=== PATIENT | male | born 1945 | race Caucasian/White ===

== ENCOUNTER 2024-07-15 11:33 | Inpatient (IN) | payer OTHER ==
[2024-07-12 12:05] LABS: BASOPHILS # (AUTO) 0.1 X10'3 (0-0.2); BASOPHILS % (AUTO) 0.9 % (0-1); EOSINOPHILS # (AUTO) 0.3 X10'3 (0-0.9); HEMATOCRIT 42.6 % (42.0-52.0); HEMOGLOBIN 14.5 g/dl (14.0-17.9); LYMPHOCYTES # (AUTO) 2.4 X10'3 (1.1-4.8); LYMPHOCYTES % (AUTO) 36.2 % (21-51); MEAN CORPUSCULAR HGB CONC 34.1 g/dL (33.0-36.5); MEAN CORPUSCULAR VOLUME 99.5 FL (78-98); MEAN PLATELET VOLUME 9.7 FL (7.4-10.4); MONOCYTES # (AUTO) 0.8 X10'3 (0-0.9); NEUTROPHILS # (AUTO) 3.1 X10'3 (1.8-7.7); NEUTROPHILS % (AUTO) 46.9 % (42-75); PLATELET COUNT 158 X10'3 (140-440); RED BLOOD COUNT 4.28 X10'6 (4.70-6.10); RED CELL DISTRIBUTION WIDTH 13.7 % (11.5-14.5); WHITE BLOOD COUNT 6.6 X10'3 (4.5-11.0)
[2024-07-12 12:18] LABS: APTT 29 SECONDS (22-32); PROTHROMBIN TIME 10.7 SECONDS (9.0-12.0)
[2024-07-12 12:22] LABS: ALBUMIN 3.8 G/DL (3.4-5.0); ANION GAP 5 (8-16); BLOOD UREA NITROGEN 20 MG/DL (7-18); BUN/CREATININE RATIO 14.7 (10.0-20.0); CALCIUM 8.9 MG/DL (8.5-10.1); CHLORIDE 107 MMOL/L (99-107); CHOL/HDL RATIO 2.7 (0.00-4.99); CHOLESTEROL 121 MG/DL (0-200); CREATININE 1.36 MG/DL (0.60-1.10); GLUCOSE 111 MG/DL (70-104); HDL CHOLESTEROL 45 MG/DL (35-60); LDL CHOLESTEROL 61 MG/DL (50-100); POTASSIUM 3.9 MMOL/L (3.5-5.1); SODIUM 142 MMOL/L (135-145); TOTAL CARBON DIOXIDE 29.7 MMOL/L (24-32); TRIGLYCERIDES 176 MG/DL (20-135); eGFR 51 ML/MIN
[~2024-07-15] VITALS: Ht 348 cm; Wt 92.7 kg
[2024-07-15] VITALS (7 sets, daily range): BP systolic 103–185; BP diastolic 40–82; PULSE 78–90; RESP 12–16; TEMP 97.4; O2SAT 97–100
[~2024-07-15 11:33] MED LIST: potassium Cl 2 mEq/ml inj IV ONE
--- NOTE | 2024-07-15 11:48 | ELECTROCARDIOGRAPH REPORT ---
[facility] Test Date: 2024-07-15 Test Time: 11:45:24 Pat Name: MICHELLE HASSAN Department: [facility] Patient ID: [facility]-[id number] Room: Gender: M Radio Station Engineer: LAZARO : 1945 Requested By: JOCE CHRISTOPHER Order Number: [id number] Reading MD: Dr. DEVEN Weiss Measurements Intervals [place] Rate: 71 P: 0 OR: 0 QRS: 68 QRSD: 106 T: 67 QT: 380 QTc: 413 Interpretive Statements Atrial fibrillation Low voltage, extremity leads Probable anteroseptal infarct, old Electronically Signed On 07-15-2024 13:29:[address] DEVEN Weiss Please click the below link to view image of tracing.
[2024-07-15] MEDS ORDERED: ALBU8HFA INH (12:07)
[2024-07-15] MEDS ORDERED: ATOR80TA PO (12:08)
[2024-07-15] MEDS ORDERED: CARV3.12 PO ×2 (12:09)
[2024-07-15] MEDS ORDERED: CHOL20004 PO (12:10)
[2024-07-15] MEDS ORDERED: NEO/5DRO3 EACHEYE (12:10)
[2024-07-15] MEDS ORDERED: CLOB30CR11 TOP (12:11)
[2024-07-15] MEDS ORDERED: FURO-150 PO (12:12)
[2024-07-15] MEDS ORDERED: LEVO112T52 PO (12:12)
[2024-07-15] MEDS ORDERED: LOSA-418 PO (12:13)
[2024-07-15] MEDS ORDERED: NITR0.4T51 SL (12:15)
[2024-07-15] MEDS ORDERED: RIVA20TA PO (12:15)
[2024-07-15] MEDS ORDERED: SILD100T PO (12:16)
[2024-07-15] MEDS ORDERED: TIOT18CA3 INH (12:17)
[2024-07-15] MEDS ORDERED: SPIR25TA5 PO (12:17)
[2024-07-15] MEDS: normal saline 1,000 ML IV SCH (13:12)
[2024-07-15] MEDS: diphenhydrAMINE 25mg capsule PO PRN (13:12)
[2024-07-15] MEDS: LORazepam 0.5 MG tablet PO PRN (13:12)
[2024-07-15] MEDS ORDERED: nitroGLYCERIN 500mcg/5mL D5W 5 ML IV ONE ×2 (13:48→14:44)
[2024-07-15] MEDS ORDERED: verapamil 2.5 mg/ml inj IV ONE (13:48)
[2024-07-15] MEDS ORDERED: midazolam 1 mg/ML 2ml injection ONE (13:48)
[2024-07-15] MEDS ORDERED: iohexol 350MG/ML 100ml bottle IV ONE ×2 (13:48→14:38)
[2024-07-15] MEDS ORDERED: heparin 1,000unit/ml 10ml vial 10 ML ONE (13:48)
[2024-07-15] MEDS ORDERED: LIDOcaine 1% (10mg/ml) 2ml vial ONE (13:48)
[2024-07-15] MEDS ORDERED: fentaNYL/PF 50MCG/1 ML 2ML syringe ONE (13:48)
[2024-07-15] MEDS ORDERED: LIDOcaine 1% 30ml preserv. free vial ONE (14:52)
[2024-07-15] MEDS ORDERED: gelatin sponge, absorbable (Gelfoam 100) sponge TP ONE (15:03)
[2024-07-15] MEDS ORDERED: ROPIVAcaine 0.5% (5mg/ml) 30ml vial ONE (15:03)
[2024-07-15] MEDS ORDERED: ceFAZolin 1000mg inj ONE (15:03)
[2024-07-15] MEDS ORDERED: vancomycin 1,000mg inj ONE (15:03)
[2024-07-15] MEDS ORDERED: insulin glargine (Lantus) pen - multi-dose SQ PRN ×2 (15:10→22:15)
[2024-07-15] MEDS ORDERED: dextrose 50%-water 50ml dispensing syringe IV PRN ×2 (15:10→22:15)
--- NOTE | 2024-07-15 15:14 | PROGRESS NOTE ---
Clinical Note Clinical Note Progress Note: Emergently called to laborer beam house for consultation: This 79yo developed left anterior descending coronary dissection during coronary stenting procedure with occlusion in prox-mid LAD. 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 Pt sedated, currently on cath table. Advised Dr. Rocha to keep the wire in place, and we have mobilized team for emergency CABG. Currently on no catecholamine support with normal ST segments. Will contact family. NELI NEGRETE Jr., MD July 15, 2024 15:14
[2024-07-15] MEDS ORDERED: rocuronium 10mg/ml inj IV ONE ×2 (15:33→15:34)
[2024-07-15] MEDS ORDERED: MIDAZolam 1 MG/ML 5ML VIAL ONE (15:33)
[2024-07-15] MEDS ORDERED: SUfentanil 50mcg/ml 1ml amp IV ONE (15:33)
[2024-07-15] MEDS ORDERED: propofol inj 20 ML IV ONE (15:34)
[2024-07-15] MEDS ORDERED: sevoflurane 250ml liquid IH ONE (15:37)
--- NOTE | 2024-07-15 15:39 | CARDIAC CATH REPORT ---
Cardiac Cath Report Providers to CC CC: Daniel Nunez MD; WINTER CHRISTOPHER MD Procedure Comments: 1. Left Heart Catheterization 2. Selective Coronary Angiography 3. Percutaneous Coronary Intervention of the Left Anterior Descending 4. Right Radial Artery Access 5. Right Femoral artery access 6. Right femoral artery angiography 7. Placement of an Intra-Aortic Balloon Pump Brief History/Indications: 79yo man with HTN, HLD, PAD, HFmrEF, Afib with reduced ejection fraction and episodes of chest pains referred for coronary angiography. Techniques: After informed consent was obtained, the patient was brought to the cardiac catheterization laboratory and prepped and draped in usual sterile fashion for left heart catheterization and other procedures mentioned above. The right wrist was anesthetized with 1% Lidocaine and the right radial artery accessed via the Seldinger technique after which a 6Fr sheath was placed. Through this a TIG was used to engage the left ventricle, the left coronary artery, and the right coronary artery. See below for interventional procedure details. Findings Findings: HEMODYNAMICS: LV: 128/7 mmHg LVEDP: 12 mmHg Ao: 121/67, MAP 88 mmHg CORONARY ARTERIES: Rt Dominant LMCA: Luminal Irregularities LAD: 95% mid calcified stenosis followed by 30-40% stenosis D1: Luminal Irregularities LCx: Luminal Irregularities OM1: Small, 80% ostial stenosis. OM2: Luminal Irregularities RCA: 80% proximal to mid stenosis with aneurysmal segment. Distal RCA with 30- 40% stenosis PDA: 30% stenosis PL: Osital 40% stenosis PERCUTANEOUS CORONARY INTERVENTION of the LAD: An XB LAD 4.0 guide was used to engage the left coronary artery. The LAD lesion was crossed with a BMW wire. Pre-dilatation was performed with a 2.0x12mm balloon. Repeat angiography revealed no-flow distal to the lesion. Appeared to be concerns of a distal dissection. Given such, attempted to salvage with placing a distal stent, however, still with no-flow. Given such, discussed with CT Surgery to evaluate for salvage CABG given LAD and PDA/PL targets. Right femoral artery access was obtained after which an 8Fr sheath was placed. Through this, the IABP was advanced and placement confirmed. Results Results: 1. Multivessel obstructive CAD involving the mid-LAD, ostial OM1(small caliber vessel), and prox-mid RCA 2. Attempted PCI of the mid-LAD, however, complicated by edge dissection with no-reflow 3. Placement in intra-aortic balloon pump 4. RRA access, guide/wire left in place at the request of CT Surgery 5. RFA Access, IABP sutured in place RECOMMENDATIONS: 1. Emergent CABG given no-flow to mid-LAD and severe RCA disease 2. Pt without significant EKG changes or chest pains, remained hypertensive JOCE CHRISTOPHER MD July 15, 2024 15:39
[2024-07-15 16:16] LABS: ABG BASE EXCESS -6.2 mmol/L (-2.0-3.0); ABG HCO3 18.9 mmol/L (21.0-28.0); ABG OXYGEN SATURATION 98.1 % (94.0-98.0); ABG PCO2 36.5 mmHg (35.0-48.0); ABG PH 7.333 (7.350-7.450); CL (ABG) 107 mmol/L (98-107); FCOHb 0.3 % (0.5-1.5); FHHb 1.9 % (0.0-5.0); FMetHb 0.4 % (0.0-1.5); FO2Hb 97.4 % (94.0-98.0); GLUCOSE (ABG) 110 mg/dl (65-95); K (ABG) 3.7 mmol/L (3.40-4.50); TOTAL HEMOGLOBIN 13.6 G/dl (13.5-17.5)
[2024-07-15] MEDS: ROPIVAcaine 0.5% (5mg/ml) 30ml vial IJ ONE (16:42)
[2024-07-15] MEDS: Insulin Reg/NS 100units/100mL 100 ML IV SCH ×2 (18:07→22:15)
[2024-07-15] MEDS: VANCOMYCIN/H2O 1.5g/300mL PB 300 ML IV ONE (18:08)
[2024-07-15] MEDS: MESSAGE TO PHARMACY IJ ONE (18:08)
[2024-07-15] MEDS: ceFAZolin 2gm in dextrose, iso 50 ML IV ONE (18:08)
[2024-07-15 18:32] LABS: ABG BASE EXCESS -4.3 mmol/L (-2.0-3.0); ABG HCO3 19.5 mmol/L (21.0-28.0); ABG OXYGEN SATURATION 99.2 % (94.0-98.0); ABG PCO2 31.1 mmHg (35.0-48.0); ABG PH 7.415 (7.350-7.450); CL (ABG) 105 mmol/L (98-107); FCOHb 0.2 % (0.5-1.5); FHHb 0.8 % (0.0-5.0); FMetHb 0.3 % (0.0-1.5); FO2Hb 98.7 % (94.0-98.0); GLUCOSE (ABG) 82 mg/dl (65-95); IONIZED CA (ABG) 0.98 mmol/L (1.15-1.33); TOTAL HEMOGLOBIN 9.6 G/dl (13.5-17.5)
[2024-07-15 19:04] LABS: ABG BASE EXCESS -4.5 mmol/L (-2.0-3.0); ABG HCO3 18.9 mmol/L (21.0-28.0); ABG OXYGEN SATURATION 99.3 % (94.0-98.0); ABG PH 7.433 (7.350-7.450); CL (ABG) 106 mmol/L (98-107); FCOHb 0.3 % (0.5-1.5); FHHb 0.7 % (0.0-5.0); FMetHb 0.3 % (0.0-1.5); FO2Hb 98.7 % (94.0-98.0); GLUCOSE (ABG) 90 mg/dl (65-95); TOTAL HEMOGLOBIN 9.6 G/dl (13.5-17.5)
[2024-07-15] MEDS: mupirocin 2% nasal ointment 1gm UD NS SCH (19:34)
[2024-07-15 19:35] LABS: ABG BASE EXCESS -2.5 mmol/L (-2.0-3.0); ABG HCO3 21.2 mmol/L (21.0-28.0); ABG OXYGEN SATURATION 99.3 % (94.0-98.0); ABG PCO2 32.4 mmHg (35.0-48.0); ABG PH 7.434 (7.350-7.450); CL (ABG) 105 mmol/L (98-107); FCOHb 0.3 % (0.5-1.5); FHHb 0.7 % (0.0-5.0); FMetHb 0.3 % (0.0-1.5); FO2Hb 98.7 % (94.0-98.0); GLUCOSE (ABG) 95 mg/dl (65-95); TOTAL HEMOGLOBIN 9.2 G/dl (13.5-17.5)
[2024-07-15 20:02] LABS: ABG BASE EXCESS -4.2 mmol/L (-2.0-3.0); ABG HCO3 20.2 mmol/L (21.0-28.0); ABG OXYGEN SATURATION 99.2 % (94.0-98.0); ABG PCO2 34.4 mmHg (35.0-48.0); ABG PH 7.387 (7.350-7.450); CL (ABG) 106 mmol/L (98-107); FCOHb 0.3 % (0.5-1.5); FHHb 0.8 % (0.0-5.0); FMetHb 0.1 % (0.0-1.5); FO2Hb 98.8 % (94.0-98.0); GLUCOSE (ABG) 104 mg/dl (65-95); K (ABG) 5.5 mmol/L (3.40-4.50); TOTAL HEMOGLOBIN 9.3 G/dl (13.5-17.5)
[2024-07-15] MEDS ORDERED: furosemide 40mg/4ml inj ONE (20:36)
[2024-07-15 20:55] LABS: ABG HCO3 VENOUS 22.2 mmol/L (22.0-29.0); ABG OXYGEN SATURATION VENOUS 73.9 % (60.0-85.0); ABG PCO2 VENOUS 40.4 mmHg (38.0-54.0); ABG PH (VENOUS) 7.358 (7.320-7.430); ABG PO2 VENOUS 41.2 mmHg (23.0-48.0); CL (ABG) 107 mmol/L (98-107); FCOHb VENOUS 0.3 % (0.5-1.5); FHHb VENOUS 25.9 %; FMetHb VENOUS 0.3 % (0.5-1.5); FO2Hb VENOUS 73.5 % (0-80.0); GLUCOSE (ABG) 100 mg/dl (65-95); IONIZED CA (ABG) 1.12 mmol/L (1.15-1.33); K (ABG) 4.4 mmol/L (3.40-4.50); TOTAL HEMOGLOBIN 8.9 G/dl (13.5-17.5)
[2024-07-15 20:58] LABS: ACTIVATED CLOTTING TIME 139 SEC (101-148)
[2024-07-15] MEDS ORDERED: protamine sulfate 10mg/ml inj. ONE ×2 (21:14→21:30)
[2024-07-15] MEDS ORDERED: albumin (Human) 5% 250ml 250 ML IV ONE (21:20)
[2024-07-15 21:28] LABS: ABG BASE EXCESS VENOUS -5.1 mmol/L (-2.0-3.0); ABG HCO3 VENOUS 20.3 mmol/L (22.0-29.0); ABG OXYGEN SATURATION VENOUS 79.2 % (60.0-85.0); ABG PCO2 VENOUS 38.9 mmHg (38.0-54.0); ABG PH (VENOUS) 7.335 (7.320-7.430); ABG PO2 VENOUS 46.5 mmHg (23.0-48.0); CL (ABG) 107 mmol/L (98-107); FHHb VENOUS 20.8 %; FMetHb VENOUS 0.1 % (0.5-1.5); FO2Hb VENOUS 79.1 % (0-80.0); GLUCOSE (ABG) 93 mg/dl (65-95); IONIZED CA (ABG) 1.12 mmol/L (1.15-1.33); TOTAL HEMOGLOBIN 11.6 G/dl (13.5-17.5)
[2024-07-15] MEDS ORDERED: potassium CL 10mEq/100ml bag 100 ML IV PRN (22:15)
[2024-07-15] MEDS ORDERED: metoclopramide 5 mg/ml inj IV PRN (22:15)
[2024-07-15] MEDS ORDERED: HYDROcodone/acetaminophen 10/325mg tab PO PRN (22:15)
[2024-07-15] MEDS ORDERED: nitroGLYCERIN-Tridil 50MG/D5W 250 ML IV PRN (22:15)
[2024-07-15] MEDS: sodium chloride 0.45% 1,000 ML IV SCH (22:15)
[2024-07-15] MEDS ORDERED: acetaminophen 325mg tablet PO PRN (22:15)
[2024-07-15] MEDS ORDERED: potassium Cl 40MEQ/1/2NS 520ml 520 ML IV PRN (22:15)
[2024-07-15] MEDS ORDERED: potassium Cl 40MEQ/270ML bag 250 ML IV PRN (22:15)
[2024-07-15] MEDS ORDERED: mineral oil 133ml enema RC PRN (22:15)
[2024-07-15] MEDS ORDERED: sodium phosphate inj. 15 MMOL in dextrose 5%-water 250 ML IV PRN (22:15)
[2024-07-15] MEDS ORDERED: niCARDipine-NS 40mg/200ml IVPB 200 ML IV PRN (22:15)
[2024-07-15] MEDS ORDERED: DOBUTamine-DoBUTrex 500mg/D5W 250 ML IV PRN (22:15)
[2024-07-15] MEDS ORDERED: Neutra Phos packet PO PRN (22:15)
[2024-07-15] MEDS ORDERED: potassium Cl 20 mEq SR tablet PO PRN (22:15)
[2024-07-15] MEDS ORDERED: magnesium sulf-water 2g/50mL 50 ML IV PRN (22:15)
[2024-07-15] MEDS ORDERED: sodium phosphate inj. 30 MMOL in dextrose 5%-water 250 ML IV PRN (22:15)
[2024-07-15] MEDS ORDERED: normal saline 250ml IV soln 250 ML IV PRN (22:15)
[2024-07-15] MEDS ORDERED: ondansetron/PF 4mg/2ml inj IV PRN (22:15)
[2024-07-15] MEDS ORDERED: bisacodyl 10mg suppository rectal RC PRN (22:15)
[2024-07-15] MEDS ORDERED: magnesium sulf-water 4G/100mL 100 ML IV PRN (22:15)
[2024-07-15] MEDS: atorvastatin 10mg tablet PO SCH (22:25)
[2024-07-15 23:00] LABS: ABG BASE EXCESS -4.6 mmol/L (-2.0-3.0); ABG HCO3 20.5 mmol/L (21.0-28.0); ABG OXYGEN SATURATION 99.2 % (94.0-98.0); ABG PCO2 (T) 35.3 mmHg (35.0-48.0); ABG PH (T) 7.375 (7.350-7.450); ABG PO2 (T) 178.6 mmHg (83.0-108.0); FCOHb 0.2 % (0.5-1.5); FHHb 0.8 % (0.0-5.0); FMetHb 0.3 % (0.0-1.5); FO2Hb 98.7 % (94.0-98.0); MODE SIMV; PATIENT TEMPERATURE 35.5; PEEP 5 cm H2O; RESPIRATORY RATE 12 b/min; TIDAL VOLUME 500 mL; TOTAL HEMOGLOBIN 11.8 G/dl (13.5-17.5)
--- NOTE | 2024-07-15 23:00 | ELECTROCARDIOGRAPH REPORT ---
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 Jax Rocha Measurements Intervals [place] Rate: 91 P: 0 IA: 184 QRS: 214 QRSD: 88 T: 201 QT: 421 QTc: 519 Interpretive Statements Atrial-paced complexes No further analysis attempted due to paced rhythm Artifact in lead(s) I,II,aVR,aVL,aVF and baseline wander in lead(s) I,II,aVR Electronically Signed On 07-16-2024 9:07:[address] Jax Rocha Please click the below link to view image of tracing.
[2024-07-15 23:03] LABS: BASOPHILS % (AUTO) 0.3 % (0-1); EOSINOPHILS # (AUTO) 0.1 X10'3 (0-0.9); EOSINOPHILS % (AUTO) 0.7 % (0-6); HEMATOCRIT 31.4 % (42.0-52.0); HEMOGLOBIN 10.8 g/dl (14.0-17.9); LYMPHOCYTES # (AUTO) 2.5 X10'3 (1.1-4.8); LYMPHOCYTES % (AUTO) 16.3 % (21-51); MEAN CORPUSCULAR HEMOGLOBIN 34.3 PG (27.0-31.0); MEAN CORPUSCULAR HGB CONC 34.5 g/dL (33.0-36.5); MEAN CORPUSCULAR VOLUME 99.3 FL (78-98); MEAN PLATELET VOLUME 9.9 FL (7.4-10.4); MONOCYTES # (AUTO) 1.2 X10'3 (0-0.9); MONOCYTES % (AUTO) 7.8 % (2-12); NEUTROPHILS # (AUTO) 11.5 X10'3 (1.8-7.7); NEUTROPHILS % (AUTO) 74.9 % (42-75); RED BLOOD COUNT 3.16 X10'6 (4.70-6.10); RED CELL DISTRIBUTION WIDTH 13.6 % (11.5-14.5); WHITE BLOOD COUNT 15.3 X10'3 (4.5-11.0)
--- NOTE | 2024-07-15 23:06 | RADIOLOGY REPORT ---
Clinical History NEEDLE COUNT Comparison None Technique: frontal chest x-ray Without Contrast MICHELLE HASSAN, [id number] Findings: Heart - normal lungs - mild left basilar disease. Left-sided chest tube. Pleural thickening in the left apex. No pneumothorax. bones - no acute fracture. status post sternotomy Other- endotracheal tube 4.4 cm above the graciela. Right jugular [place]-Danette catheter tip in the right ventricular outflow tract. Additional right jugular catheter tip extends to the SVC. Mediastinal dr erickson is present. intra-aortic balloon pump tip in the interspace of the third and fourth ribs anterio rly. Impression: 1. Lines and tubes as above. No evidence of a retained surgical instrument or sponge marker. 2. Mild left basilar disease. Left-sided chest tube. No pneumothorax This report was electronically signed by Dirk Murry MD on 07/15/2024 11:02:44 PM.
[2024-07-15 23:19] LABS: TOTAL CELLS COUNTED 100
[2024-07-15 23:20] LABS: PLATELET ESTIMATE DECREASED
[2024-07-15 23:21] LABS: PLATELET COUNT 56 X10'3 (140-440)
[2024-07-15 23:25] LABS: ALANINE AMINOTRANSFERASE 12 U/L (12-78); ALBUMIN 2.6 G/DL (3.4-5.0); ALBUMIN/GLOBULIN RATIO 1.5 (1.1-1.5); ALKALINE PHOSPHATASE 45 IU/L (46-116); ANION GAP 12 (8-16); BILIRUBIN,TOTAL 1.4 MG/DL (0.1-1.0); BLOOD UREA NITROGEN 18 MG/DL (7-18); BUN/CREATININE RATIO 14.6 (10.0-20.0); CALCIUM 7.8 MG/DL (8.5-10.1); CHLORIDE 112 MMOL/L (99-107); CREATININE 1.23 MG/DL (0.60-1.10); GLUCOSE 116 MG/DL (70-104); MAGNESIUM 3.1 MG/DL (1.5-2.4); SODIUM 146 MMOL/L (135-145); TOTAL CARBON DIOXIDE 22.4 MMOL/L (24-32); TOTAL PROTEIN 4.3 G/DL (6.4-8.2); eCRCL 52 ML/MIN; eGFR 57 ML/MIN
[2024-07-15] MEDS: sodium bicarbonate (8.4%) 1 mEq/ml syringe ONE (23:26)
[2024-07-15 23:27] LABS: ASPARTATE AMINO TRANSFERASE 37 U/L (10-37); PHOSPHORUS 2.6 MG/DL (2.3-4.5); POTASSIUM 4.1 MMOL/L (3.5-5.1)
[2024-07-15] MEDS: sodium bicarbonate (8.4%) 1 mEq/ml syringe IV ONE (23:27)
--- NOTE | 2024-07-15 23:28 | OPERATIVE REPORT ---
Operative Report Providers to CC CC: NELI LAKE Jr., MD ~ Date of Procedure: July 15, 2024 Pre-Operative Diagnosis: LAD dissection with severe decrease SBP, calcified RCA dz, s/p IABP Post-Operative Diagnosis SAME as PRE-Op Procedure Performed Emergency CABG x 2 with BRAGG to (dissected) mid LAD (1.5 mm internal lumen diameter) because of dissection) and SV to proximal PDA (1.5 mm) Left atrial appendage exclusion with 45 mm AtriCure AtriClip Flex V Endovein left thigh sv harvest Surgeon: Neli Lake MD Senior Nuclear Medicine Technologist Ghassan DELGADO (assisted with every aspect of case, including conduit preparation, cannulation, exposure, and assisting during all anastomoses, wound closure). Anesthesiologist: Fabian Islas Type of Anesthesia: General Findings: Dissection extending distally, involving left anterior descending at anastomosis, which involved local repair with reapproximation of artery layers RCA severely calcified. Had to track PDA beneath epicardial fat to locate useable site Severe LA and RA enlargement, 3.8 cm ascending aortic aneurysm EF at beginning of case on IABP = 50% with severe anterior wall and septal hypokinesis EF post bypass 60% with resolution of hypokinesis and decrease in mitral regurgitation to trace Left atrial appendage excluded Complications None Prosthetics\Implants used: 45 mm AtriCure AtriClip Flex V device Estimated Blood Loss: 400 ml Specimen Removed: None Description of Procedure: See above Counts repoted as correct: No X-Ray findings: No Foreign body NELI LAKE Jr., MD July 15, 2024 23:28
[2024-07-15 23:30] LABS: APTT 41 SECONDS (22-32); FIBRINOGEN 159 MG/DL (177-424); INR 1.5 INR; PROTHROMBIN TIME 14.8 SECONDS (9.0-12.0)
[2024-07-15] MEDS: potassium Cl 20mEq/100mL bag 100 ML IV PRN (23:36)
[2024-07-15] MEDS: albumin (Human) 5% 250ml 250 ML IV PRN (23:46)
[2024-07-15] MEDS: cefazolin 2gm/D5W 100mL 100 ML IV SCH (23:56)
[2024-07-15] MEDS: protamine sulf. 10mg/ml inj. IV ONE (23:56)
[2024-07-16] VITALS (40 sets, daily range): BP systolic 92–209; BP diastolic 35–87; PULSE 90–110; RESP 8–27; O2SAT 92–98
[2024-07-16] MEDS: neomycin/polymyxn B/dexameth ophth suspension 5ml EACHEYE SCH (02:13)
[2024-07-16 03:23] LABS: HEMATOCRIT 35.1 % (42.0-52.0); LYMPHOCYTES # (AUTO) 1.8 X10'3 (1.1-4.8); RED BLOOD COUNT 3.51 X10'6 (4.70-6.10)
[2024-07-16 03:25] LABS: BASOPHILS # (AUTO) 0.1 X10'3 (0-0.2); BASOPHILS % (AUTO) 0.3 % (0-1); EOSINOPHILS % (AUTO) 0.1 % (0-6); LYMPHOCYTES % (AUTO) 8.2 % (21-51); MEAN CORPUSCULAR HEMOGLOBIN 34.3 PG (27.0-31.0); MEAN CORPUSCULAR HGB CONC 34.3 g/dL (33.0-36.5); MEAN PLATELET VOLUME 9.1 FL (7.4-10.4); MONOCYTES # (AUTO) 0.8 X10'3 (0-0.9); MONOCYTES % (AUTO) 3.9 % (2-12); NEUTROPHILS # (AUTO) 18.7 X10'3 (1.8-7.7); NEUTROPHILS % (AUTO) 87.5 % (42-75); PLATELET COUNT 74 X10'3 (140-440); RED CELL DISTRIBUTION WIDTH 13.8 % (11.5-14.5); WHITE BLOOD COUNT 21.4 X10'3 (4.5-11.0)
[2024-07-16] MEDS: ipratropium 0.5 MG/2.5ML nebule NEB SCH (03:27)
[2024-07-16 03:33] LABS: APTT 27 SECONDS (22-32); INR 1.2 INR
[2024-07-16 03:41] LABS: ABG BASE EXCESS -6.7 mmol/L (-2.0-3.0); ABG HCO3 19.2 mmol/L (21.0-28.0); ABG OXYGEN SATURATION 96.3 % (94.0-98.0); ABG PCO2 (T) 39.8 mmHg (35.0-48.0); ABG PH (T) 7.302 (7.350-7.450); ABG PO2 (T) 87.5 mmHg (83.0-108.0); FHHb 3.7 % (0.0-5.0); FMetHb 0.3 % (0.0-1.5); MODE vent- cpap/ps; PATIENT TEMPERATURE 36.8; PEEP 5 cm H2O; TOTAL HEMOGLOBIN 12.5 G/dl (13.5-17.5)
[2024-07-16 03:45] LABS: ALANINE AMINOTRANSFERASE 19 U/L (12-78); ALBUMIN 3.4 G/DL (3.4-5.0); ALBUMIN/GLOBULIN RATIO 1.8 (1.1-1.5); ALKALINE PHOSPHATASE 49 IU/L (46-116); ANION GAP 13 (8-16); ASPARTATE AMINO TRANSFERASE 51 U/L (10-37); BILIRUBIN,TOTAL 2.9 MG/DL (0.1-1.0); BLOOD UREA NITROGEN 19 MG/DL (7-18); BUN/CREATININE RATIO 11.3 (10.0-20.0); CALCIUM 7.7 MG/DL (8.5-10.1); CHLORIDE 110 MMOL/L (99-107); CREATININE 1.68 MG/DL (0.60-1.10); GLUCOSE 159 MG/DL (70-104); MAGNESIUM 2.9 MG/DL (1.5-2.4); PHOSPHORUS 4.1 MG/DL (2.3-4.5); SODIUM 145 MMOL/L (135-145); TOTAL CARBON DIOXIDE 22.1 MMOL/L (24-32); TOTAL PROTEIN 5.3 G/DL (6.4-8.2); eCRCL 38 ML/MIN; eGFR 40 ML/MIN
[2024-07-16 03:50] LABS: POTASSIUM 4.1 MMOL/L (3.5-5.1)
[2024-07-16] MEDS: sodium bicarbonate (8.4%) 1 mEq/ml syringe IV ONE (04:02)
[2024-07-16] MEDS: morphine 4 MG/ML inj SYRINge IV PRN (04:05)
[2024-07-16] MEDS: acetaminophen 325mg tablet PO PRN (04:26)
--- NOTE | 2024-07-16 06:12 | RADIOLOGY REPORT ---
EXAM: XR Chest, 1 View CLINICAL INDICATION: POST OP TECHNIQUE: Frontal view of the chest. COMPARISON: None FINDINGS: LUNGS AND PLEURAL SPACES: See below. HEART: Cardiomegaly with mild congestion. MEDIASTINUM: See below. BONES/JOINTS: Sternotomy wires. No acute fracture. TUBES, LINES AND DEVICES: Right IJ swan-Danette catheter with distal tip in the mid mediastinum. The endotracheal tube (ETT) is in satisfactory position. Enteric tube tip in the stomach. OTHER FINDINGS: . . . IMPRESSION: Cardiomegaly with mild congestion.
--- NOTE | 2024-07-16 06:20 | ELECTROCARDIOGRAPH REPORT ---
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 Jax Rocha Measurements Intervals [place] Rate: 90 P: 0 CT: 225 QRS: 31 QRSD: 124 T: 25 QT: 326 QTc: 399 Interpretive Statements Atrial-paced complexes Prolonged CT interval Nonspecific intraventricular conduction delay ST elevation, consider anterolateral injury Lead(s) III were not used for morphology analysis Artifact in lead(s) I,II,aVR,aVL,aVF Electronically Signed On 07-16-2024 9:08:[address] Jax Rocha Please click the below link to view image of tracing.
[2024-07-16 07:04] LABS: ABG PO2 442.5 mmHg (83.0-108.0); K (ABG) 6.6 mmol/L (3.40-4.50)
[2024-07-16 07:05] LABS: ABG PO2 427.1 mmHg (83.0-108.0); K (ABG) 6.3 mmol/L (3.40-4.50)
[2024-07-16 07:05] LABS: ABG PO2 399.5 mmHg (83.0-108.0)
[2024-07-16 07:06] LABS: K (ABG) 6.1 mmol/L (3.40-4.50)
[2024-07-16 07:06] LABS: ABG PO2 416.3 mmHg (83.0-108.0)
[2024-07-16] MEDS: vancomycin/NS 1 GM ADD-VANTAGE 250 ML IV SCH (07:46)
[2024-07-16] MEDS: PHENYLephrine 10mg/ml inj. 50 MG in normal saline 250ml IV soln 245 ML IV SCH (07:46)
[2024-07-16] MEDS: cholecalciferol (vitamin D3) 1,000 unit (25mcg) tablet PO SCH (07:54)
[2024-07-16] MEDS: gabapentin 300mg capsule PO SCH (07:55)
[2024-07-16] MEDS: sennosides/docusate sodium tablet PO SCH (07:56)
[2024-07-16] MEDS: mupirocin 2% nasal ointment 1gm UD NS SCH (07:56)
[2024-07-16] MEDS: levoTHYROXINE 112mcg tablet PO SCH (07:59)
[2024-07-16] MEDS ORDERED: losartan 50mg tablet PO SCH (08:00)
[2024-07-16] MEDS ORDERED: carVEDilol 3.125mg tablet PO SCH ×2 (08:00→21:00)
[2024-07-16] MEDS: metoprolol tartrate 12.5mg (1/2 tablet) PO SCH (08:00)
[2024-07-16] MEDS: clobetasol 0.05% cream 30gm TP SCH (08:00)
[2024-07-16] MEDS ORDERED: atorvastatin 20mg tablet PO SCH (08:00)
[2024-07-16 08:09] LABS: ACT @ 1.70 U 444 SEC (193-297); ACT @ 2.84 U 601 SEC (260-420); BASELINE ACT 223 SEC (101-148); PATIENT WEIGHT 92.0k KG
[2024-07-16] MEDS: aspirin 81mg tab.chew PO SCH (08:52)
--- NOTE | 2024-07-16 09:02 | PROGRESS NOTE ---
Progress Note CV Providers to CC ~ Antibiotics Ordered?: No Subjective Subjective S/P Emergent CABG x 2 POD # 1. Remains ventilated and on IABP. Currently on Venkatesh for BP support. CI now 1.8 Objective Vitals Vital Signs Date Time Temp Pulse Resp B/P (MAP) Pulse Ox O2 Delivery O2 Flow Rate FiO2 07/16/24 08:20 21 07/16/24 08:00 99.7 90 92/59 (77) 97 Mechanical Ventilator 40 146/54 (86) 40 Lab Results: 07/16/24 0300 07/16/24 0300 Objective Lungs - mildly decreased at bases Heart - RRR, paced. Abd/Extr - OK Incisions - dsgs CDI Coagulation Studies Laboratory Tests Test 07/15/24 16:21 07/15/24 21:00 07/15/24 21:31 07/15/24 22:50 Patient Sex (Coag) M Patient Height (Coag) 180cm Patient Weight (Coag) 92.0k KG Patient Blood Volume 6542 ML Pump Volume 1500 ML Total Blood Volume 8042 ML Projected Heparin Concentration 1.2 MG/KG Heparin [place] 152 Calculated Heparin Bolus 89361 UNITS Activated Coagulation Time Baseline 223 SEC (101-148) H Activated Coag Time 1.70 U/mL 444 SEC (193-297) H Activated Coag Time 2.84 U/mL 601 SEC (260-420) H Heparin Level (COAG) 0 MG/KG Calculated Heparin Req (Hep Assay) 08895 UNITS Calculated Protamine Req (Hep Assay 0 MG Activated Clotting Time 142 SEC (101-148) Fibrinogen 159 MG/DL (177-424) L Coagulation Clinical Comments Test 07/16/24 03:00 Prothrombin Time 12.0 SECONDS (9.0-12.0) INR International Normalized Ratio 1.2 INR Activated Partial Thromboplast Time 27 SECONDS (22-32) Coagulation Comments Cardiac Rhythm: A Paced Problem\Assessment\Plan Additional Plan POD # 1 IABP in good position on CXR Neosynephrine gtt Creat mildly elevated. FiO2 40% Sepsis Screening Reassessment Date: July 16, 2024 Supervising Co-signing Provider: LLOYD Coyle July 16, 2024 09:02
[2024-07-16 09:11] LABS: ABG BASE EXCESS -0.8 mmol/L (-2.0-3.0); ABG HCO3 23.1 mmol/L (21.0-28.0); ABG OXYGEN SATURATION 97.9 % (94.0-98.0); ABG PCO2 (T) 36.4 mmHg (35.0-48.0); ABG PH (T) 7.423 (7.350-7.450); ABG PO2 (T) 108.3 mmHg (83.0-108.0); FCOHb 0.2 % (0.5-1.5); FHHb 2.1 % (0.0-5.0); FMetHb 0.3 % (0.0-1.5); FO2Hb 97.4 % (94.0-98.0); MODE VENT - CPAP/PS; PATIENT TEMPERATURE 37.6; PEEP 5 cm H2O; TOTAL HEMOGLOBIN 10.2 G/dl (13.5-17.5)
[2024-07-16] MEDS: albumin (Human) 5% 250ml 250 ML IV ONE (09:19)
--- NOTE | 2024-07-16 12:56 | RADIOLOGY REPORT ---
Clinical History NEEDLE COUNT Comparison None Technique: frontal chest x-ray Without Contrast MICHELLE HASSAN, [id number] Findings: Heart - normal lungs - mild left basilar disease. Left-sided chest tube. Pleural thickening in the left apex. No pneumothorax. bones - no acute fracture. status post sternotomy Other- endotracheal tube 4.4 cm above the graciela. Right jugular [place]-Danette catheter tip in the right ventricular outflow tract. Additional right jugular catheter tip extends to the SVC. Mediastinal drain is present. intra-aortic balloon pump tip in the interspace of the third and fourth ribs anteriorly. Impression: 1. Lines and tubes as above. No evidence of a retained surgical instrument or sponge marker. 2. Mild left basilar disease. Left-sided chest tube. No pneumothorax This report was electronically signed by Dirk Murry MD on 07/15/2024 11:02:44 PM. ISSA
[2024-07-16] MEDS: normal saline 1000ml 1,000 ML IV SCH (13:15)
[2024-07-16 15:44] LABS: ALANINE AMINOTRANSFERASE 20 U/L (12-78); ALBUMIN 3.4 G/DL (3.4-5.0); ALBUMIN/GLOBULIN RATIO 2.1 (1.1-1.5); ALKALINE PHOSPHATASE 38 IU/L (46-116); ANION GAP 9 (8-16); ASPARTATE AMINO TRANSFERASE 71 U/L (10-37); BILIRUBIN,TOTAL 2.2 MG/DL (0.1-1.0); BLOOD UREA NITROGEN 23 MG/DL (7-18); BUN/CREATININE RATIO 12.8 (10.0-20.0); CALCIUM 7.8 MG/DL (8.5-10.1); CHLORIDE 113 MMOL/L (99-107); CREATININE 1.79 MG/DL (0.60-1.10); GLUCOSE 144 MG/DL (70-104); MAGNESIUM 2.5 MG/DL (1.5-2.4); POTASSIUM 4.6 MMOL/L (3.5-5.1); SODIUM 147 MMOL/L (135-145); TOTAL CARBON DIOXIDE 25.5 MMOL/L (24-32); eCRCL 36 ML/MIN; eGFR 37 ML/MIN
[2024-07-16] MEDS: ceFAZolin 2gm in dextrose, iso 50 ML IV SCH (15:51)
[2024-07-16] MEDS: morphine 2 MG/ML inj. syringe IV PRN (16:34)
--- NOTE | 2024-07-16 16:59 | CARDIOLOGY REPORT ---
APPROVED REPORT EXAM: Intraoperative transesophageal 2D spectral and color flow Doppler echocardiogram. Study contai ns pre- and post-op images. Patient Location: CVOR Blood Pressure: 190/75 mmHg Heart Rate: 75-90 bpm Rhythm: Atrial Fibrillation Indications CORONARY ARTERY DISEASE CABG X 2 (BRAGG TO LAD, SVG TO RCA) LAAO LIGATION IABP 1:1, REDUCED TO 1:2 MINGO PROBE PASSED BY:Kayla MUÑOZ MD TOOL SHAPER SETUP OPERATOR: Rudolph CHRISTOPHER MD/ CV SURGEON: Malcolm NEGRETE MD Previous Echo: None LEFT VENTRICLE PRE: Normal LV size with lower limit normal function. Mild concentric hypertrophy. Mid anteroseptal f ocal hypokinesis. LVEF is 55%. POST: Anterior septal wall improvement, on 4 mcg Dobutamine. LVEF: 60- 65%. RIGHT VENTRICLE PRE: RV is normal size and function. POST: No changes. ATRIA PRE: At least moderate enlargement. Left atrial appendage is visualized in multiple planes and appear s normal with hyperechoic blood flow pre-thrombus debris. Pulmonary vein identified and isolated by 2 D and color Doppler. POST: LA appendage surgically ligated without flow detected. AORTIC VALVE PRE: Trileaflet AV appears mildly sclerotic without stenosis. Trace insufficiency. Perfusion cathete r is visualized at aortic valve level. POST: Normal AV, no perfusion catheter visualized. MITRAL VALVE PRE: The mitral valve is normal in structure with trace multiple jets. POST: No changes. TRICUSPID VALVE PRE: TV appears structurally normal with trace regurgitation. POST: No changes. PULMONIC VALVE PRE: Pulmonic valve is grossly normal in structure. Trace insufficiency. POST: No changes. GREAT VESSELS PRE: The aortic root is normal in size. Ascending aorta with IABP 1.1. POST: IABP TO 1:2. PERICARDIUM PRE: Normal pericardium. Small pericardial effusion along right heart chambersis present without hemo dynamic compromise. POST: No changes. CONCLUSION PRE: Normal LV size with lower limit normal function. Mild concentric hypertrophy. Mid anteroseptal f ocal hypokinesis. LVEF is 55%. POST: Anterior septal wall improvement, on 4 mcg Dobutamine. LVEF: 60- 65%. PRE: RV is normal size and function. POST: No changes. PRE: At least moderate enlargement. Left atrial appendage is visualized in multiple planes and appears normal with hyperechoic blood flow pre -thrombus debris. Pulmonary vein identified and isolated by 2D and color Doppler. POST: LA appendage surgically ligated without flow detected. PRE: Trileaflet AV appears mildly sclerotic without stenos is. Trace insufficiency. Perfusion catheter is visualized at aortic valve level. POST: Normal AV, no perfusion catheter visualized. PRE: The mitral valve is normal in structure with trace multiple jets . POST: No changes. PRE: TV appears structurally normal with trace regurgitation. POST: No changes. PRE: The aortic root is normal in size. Ascending aorta with IABP 1.1. POST: IABP TO 1:2. PRE: Normal pericardium. Small pericardial effusion along right heart chambersis present without hemodynamic com promise. POST: No changes. Conclusion PRE: Normal LV size with lower limit normal function. Mild concentric hypertrophy. Mid anterosepta l focal hypokinesis. LVEF is 55%. POST: Anterior septal wall improvement, on 4 mcg Dobutamine. LVEF: 60-65%. PRE: RV is normal size and function. POST: No changes. PRE: At least moderate enlargement. Left atrial appendage is visualized in multiple planes and appe ars normal with hyperechoic blood flow pre-thrombus debris. Pulmonary vein identified and isolated by 2D and color Doppler. POST: LA appendage surgically ligated without flow detected. PRE: Trileaflet AV appears mildly sclerotic without stenosis. Trace insufficiency. Perfusion cath eter is visualized at aortic valve level. POST: Normal AV, no perfusion catheter visualized. PRE: The mitral valve is normal in structure with trace multiple jets. POST: No changes. PRE: TV appears structurally normal with trace regurgitation. POST: No changes. PRE: The aortic root is normal in size. Ascending aorta with IABP 1.1. POST: IABP TO 1:2. PRE: Normal pericardium. Small pericardial effusion along right heart chambersis present without he modynamic compromise. POST: No changes.
[2024-07-16] MEDS: atorvastatin 10mg tablet PO SCH (21:16)
[2024-07-17] VITALS (30 sets, daily range): BP systolic 102–166; BP diastolic 49–78; PULSE 81–122; RESP 11–21; O2SAT 91–98
[2024-07-17 03:03] LABS: BASOPHILS % (AUTO) 0 % (0-1); EOSINOPHILS % (AUTO) 0 % (0-6); LYMPHOCYTES # (AUTO) 1.1 X10'3 (1.1-4.8); LYMPHOCYTES % (AUTO) 6.3 % (21-51); MEAN CORPUSCULAR HEMOGLOBIN 34.5 PG (27.0-31.0); MEAN CORPUSCULAR HGB CONC 34.5 g/dL (33.0-36.5); MEAN PLATELET VOLUME 10.8 FL (7.4-10.4); MONOCYTES # (AUTO) 1.2 X10'3 (0-0.9); MONOCYTES % (AUTO) 6.9 % (2-12); NEUTROPHILS # (AUTO) 15.7 X10'3 (1.8-7.7); NEUTROPHILS % (AUTO) 86.8 % (42-75); PLATELET COUNT 54 X10'3 (140-440); RED CELL DISTRIBUTION WIDTH 13.8 % (11.5-14.5); WHITE BLOOD COUNT 18.1 X10'3 (4.5-11.0)
[2024-07-17 03:12] LABS: ALBUMIN 3.2 G/DL (3.4-5.0); ANION GAP 9 (8-16); BLOOD UREA NITROGEN 27 MG/DL (7-18); BUN/CREATININE RATIO 15.5 (10.0-20.0); CALCIUM 7.8 MG/DL (8.5-10.1); CHLORIDE 114 MMOL/L (99-107); CREATININE 1.74 MG/DL (0.60-1.10); GLUCOSE 172 MG/DL (70-104); MAGNESIUM 2.5 MG/DL (1.5-2.4); PHOSPHORUS 4.5 MG/DL (2.3-4.5); POTASSIUM 4.5 MMOL/L (3.5-5.1); SODIUM 148 MMOL/L (135-145); TOTAL CARBON DIOXIDE 24.7 MMOL/L (24-32); eCRCL 37 ML/MIN; eGFR 38 ML/MIN
--- NOTE | 2024-07-17 06:01 | RADIOLOGY REPORT ---
EXAM: XR Chest, 1 View CLINICAL INDICATION: POST OP TECHNIQUE: Frontal view of the chest. COMPARISON: DI CHEST,SINGLE VIEW on DOS: 07/16/24, DI CHEST,SINGLE VIEW on DOS: 07/15/24 FINDINGS: LUNGS AND PLEURAL SPACES: See below. HEART: Cardiomegaly with pulmonary congestion and edema. Superimposed pneumonia cannot be excluded. MEDIASTINUM: See below. BONES/JOINTS: Unremarkable. No acute fracture. TUBES, LINES AND DEVICES: Right IJ swan-Danette catheter with distal tip in the mid mediastinum. OTHER FINDINGS: . . . IMPRESSION: Cardiomegaly with pulmonary congestion and edema. Superimposed pneumonia cannot be excluded.
[2024-07-17] MEDS: pantoprazole 40mg Tablet.DR PO SCH (07:40)
--- NOTE | 2024-07-17 08:18 | PROGRESS NOTE ---
Progress Note CV Providers to CC ~ Antibiotics Ordered?: No Subjective Subjective S/P Emergent CABG x 2 POD # 2. He is alert and in NAD. IABP has been 1:2. He is on just a small amt of venkatesh. MAP around 90 at present. CI 2.2 Objective Vitals Vital Signs Date Time Temp Pulse Resp B/P (MAP) Pulse Ox O2 Delivery O2 Flow Rate FiO2 07/17/24 08:00 98.6 90 13 119/65 (98) 96 Nasal Cannula 2.0 158/57 (91) 07/16/24 16:06 40 Lab Results: 07/17/24 0200 07/17/24 0200 Objective Lungs - mildly diminished L base Heart - Irreg, irreg. Back in A. fib. Abd/Extr - OK Incisions - CDI Coagulation Studies Laboratory Tests Test 07/15/24 16:21 07/15/24 21:00 07/15/24 21:31 07/15/24 22:50 Patient Sex (Coag) M Patient Height (Coag) 180cm Patient Weight (Coag) 92.0k KG Patient Blood Volume 6542 ML Pump Volume 1500 ML Total Blood Volume 8042 ML Projected Heparin Concentration 1.2 MG/KG Heparin [place] 152 Calculated Heparin Bolus 55771 UNITS Activated Coagulation Time Baseline 223 SEC (101-148) H Activated Coag Time 1.70 U/mL 444 SEC (193-297) H Activated Coag Time 2.84 U/mL 601 SEC (260-420) H Heparin Level (COAG) 0 MG/KG Calculated Heparin Req (Hep Assay) 86483 UNITS Calculated Protamine Req (Hep Assay 0 MG Activated Clotting Time 142 SEC (101-148) Fibrinogen 159 MG/DL (177-424) L Coagulation Clinical Comments Test 07/16/24 03:00 Prothrombin Time 12.0 SECONDS (9.0-12.0) INR International Normalized Ratio 1.2 INR Activated Partial Thromboplast Time 27 SECONDS (22-32) Coagulation Comments Cardiac Rhythm: Atrial Flutter, Atrial Fibrillation, A Paced Problem\Assessment\Plan Additional Plan POD # 2 Reverted back to A. fib as expected. CI 2.2 Low dose Venkatesh DC IABP Mobilize later today. Creat 1.7, baseline 1.3 Monitor UOP closely. Sepsis Screening Reassessment Date: July 17, 2024 Supervising Co-signing Provider: LLOYD Coyle July 17, 2024 08:18
[2024-07-17] MEDS: PHENYLephrine 10mg/ml inj. 50 MG in normal saline 250ml IV soln 245 ML IV SCH (08:56)
[2024-07-17] MEDS: lactose-reduced food (Ensure Enlive) - 237ml bottle PO SCH (13:20)
[2024-07-17] MEDS: metoprolol tartrate 12.5mg (1/2 tablet) PO SCH (17:12)
[2024-07-17] MEDS ORDERED: dextrose 50%-water 50ml dispensing syringe IV PRN ×2 (22:35)
[2024-07-17] MEDS ORDERED: glucagon, human recombinant 1mg kit SUBCUT PRN (22:35)
[2024-07-17] MEDS ORDERED: DEXTROSE 15 GM of carb/4 tabs (each vial/BOTTLE has 4 tablets) PO PRN ×2 (22:35)
[2024-07-17 23:08] LABS: HEMOGLOBIN A1C 5.4 % (4.5-6.2)
[2024-07-18] VITALS (29 sets, daily range): BP systolic 116–166; BP diastolic 60–94; PULSE 86–119; RESP 11–21; TEMP 97.7–98; O2SAT 93–98
[2024-07-18 02:39] LABS: EOSINOPHILS % (AUTO) 0 % (0-6); NEUTROPHILS # (AUTO) 12.4 X10'3 (1.8-7.7)
[2024-07-18 02:41] LABS: BASOPHILS % (AUTO) 0.1 % (0-1); HEMATOCRIT 24.5 % (42.0-52.0); HEMOGLOBIN 8.3 g/dl (14.0-17.9); LYMPHOCYTES # (AUTO) 1.1 X10'3 (1.1-4.8); LYMPHOCYTES % (AUTO) 7.3 % (21-51); MEAN CORPUSCULAR HEMOGLOBIN 34.1 PG (27.0-31.0); MEAN CORPUSCULAR HGB CONC 33.8 g/dL (33.0-36.5); MEAN CORPUSCULAR VOLUME 100.9 FL (78-98); MEAN PLATELET VOLUME 11.2 FL (7.4-10.4); MONOCYTES % (AUTO) 6.9 % (2-12); NEUTROPHILS % (AUTO) 85.7 % (42-75); RED BLOOD COUNT 2.43 X10'6 (4.70-6.10); RED CELL DISTRIBUTION WIDTH 13.9 % (11.5-14.5); WHITE BLOOD COUNT 14.4 X10'3 (4.5-11.0)
[2024-07-18 02:58] LABS: PLATELET COUNT 48 X10'3 (140-440)
[2024-07-18 03:03] LABS: ALBUMIN 2.9 G/DL (3.4-5.0); ANION GAP 10 (8-16); BLOOD UREA NITROGEN 38 MG/DL (7-18); BUN/CREATININE RATIO 26.4 (10.0-20.0); CALCIUM 7.6 MG/DL (8.5-10.1); CHLORIDE 111 MMOL/L (99-107); CREATININE 1.44 MG/DL (0.60-1.10); GLUCOSE 157 MG/DL (70-104); MAGNESIUM 2.6 MG/DL (1.5-2.4); PHOSPHORUS 2.6 MG/DL (2.3-4.5); POTASSIUM 4.8 MMOL/L (3.5-5.1); SODIUM 145 MMOL/L (135-145); eCRCL 44 ML/MIN; eGFR 47 ML/MIN
--- NOTE | 2024-07-18 05:18 | OPERATIVE REPORT ---
Operative Report Providers to CC: JOCE ROCHA MD Operative Report Date of Service: 07/15/2024 Surgeon: Nilesh Lake Jr., MD [facility] Market Asset Protection Manager Surgeon: DANNY Eddy (continuously present and assisted with all aspects of the procedure, including conduit harvest, exposure, cannulation, suture and surgical field management, and wound closure) Anesthesiologist: Fabian Islas MD Tooth Cutter Clutch: Naren Padilla CCP Referring Kennel Aide: Joce Rocha MD Primary Care Provider: [facility] Preoperative Diagnoses: 1. Cardiogenic shock with systolic blood pressure 73 mm Hg despite intra-aortic balloon pump support following periprocedural proximal-mid left anterior descending coronary dissection with complete left anterior descending occlusion, and perfusion pressure maintained entirely from augmented diastole. 2. Non ST segment elevation infarction with acute, severe septal hypokinesis/akinesis with compensatory lateral wall hypokinesis. 3. Positive stress test with dyspnea, chest pain, and anterior wall ischemia and preadmission NYHA class 2 diastolic congestive heart failure. 4. 2-vessel coronary artery disease with high-grade proximal left anterior descending coronary stenosis and calcified right coronary artery system with serial, high-grade stenoses and mid right coronary artery aneurysm. 5. Chronic atrial fibrillation with maintenance on oral anticoagulation and beta blockade, and appearance of flow stagnation in left atrial appendage. 6. At least mild chronic obstructive pulmonary disease maintained on two bronchodilator metered dose inhaler medications [no pulmonary function testing results available]. 7. 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 8. Chronic stage IIIA kidney disease with preoperative creatinine 1.36 mg/dL. 9. Hypertension and hyperlipidemia. Postoperative Diagnoses: 1. 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 2. Mild aneurysmal dilatation of ascending aorta without palpable athero sclerosis; left and right atrial enlargement. 3. Left anterior descending false lumen extension beyond site of mid left anterior descending anastomosis and vessel reconstruction. 4. Post bypass partial resolution of interventricular septal contractility and markedly improved systolic blood pressure contribution to arterial waveform. 5. Complete exclusion of left atrial appendage. Procedures: 1. Emergency 2-vessel coronary artery bypass grafting with skeletonized left internal mammary artery (3.0 mm diameter) to the dissected mid left anterior descending coronary artery (1.5 mm internal lumen diameter, 30 ml/min flow, and pulsatility index 2.1), saphenous vein to posterior descending artery (1.5 mm internal lumen diameter, [competitive] 64 ml/min flow, and pulsatility index 1.6). [Graft flows measured intra-aortic balloon pump on standby.] 2. Localized, primary repair of left anterior descending coronary artery dissection. 3. Left atrial appendage exclusion with 45 mm AtriCure AtriClip Flex V device. 4. Endoscopic left greater saphenous vein harvest. 5. Modifier 22 for technical difficulty requiring prolonged operating room time related to skeletonized harvest of anomalous left internal mammary artery. Indications: I knew essentially none of this patient's past medical history at the time of his emergency operation. During performance of an outpatient cardiac catheterization, during PCI of an ultra high-grade proximal left anterior descending coronary artery stenosis, a dissection of the left anterior descending developed with abrupt cessation of all flow beginning at the mid left anterior descending in a vessel that extended beyond the apex and which had a reasonable preprocedure vessel caliber. There was still a guidewire in the left anterior descending system despite the absence of any flow. In addition, the patient had a severely calcified right coronary system with serial moderate to severe stenoses as well as an aneurysm in the mid segment. The calcification extended throughout the distal right coronary system, including the atrial ventricular groove segment beyond the origin of the posterior descending artery, making the posterior descending artery the only feasible target vessel. The patient had chronic atrial fibrillation, and his maintenance Xarelto anticoagulation had been discontinued 4-5 days before the cardiac catheterization. He had received only intravenous heparin in the catheterization laboratory. The operating room was immediately notified and, despite the absence of overt ST segment elevation on the monitor leads, I requested not only insertion of an intra-aortic balloon pump, but that the patient be transferred with the guidewire still in place in the left anterior descending system in the event that an intra-aortic balloon pump might provide some perfusion in the dissected artery. Upon arrival in the operating room, the patient demonstrated cardiogenic shock with perfusion maintained only by the augmented diastolic pressure as the much smaller systolic waveform measured only 73 mm Hg. Because of the augmented diastolic pressure, Dr. Islas was able to insert, following anesthesia induction, a pulmonary artery catheter and central venous pressure catheter, followed by a transesophageal echo probe. Procedure: With the patient positioned supine on the operating table, and the right radial artery sheath from which the guidewire exited was transduced, but the intra- aortic balloon pump pressure was the principal blood pressure monitoring source. Following smooth endotracheal intubation and right internal jugular vein pulmonary artery catheter monitoring, a transesophageal echo probe was inserted and the interventricular septum was noted to be severely hypokinetic/akinetic with compensatory lateral wall hyperkinesis. There were 2 small jets of mitral regurgitation. The left and right atria were severely enlarged, and there was flow stagnation consistent with a pre-thrombus state in the left atrial appendage. The skin was sterilely prepped and draped and a surgical pause performed before commencing with left lower extremity endoscopic vein harvest simultaneous with performance of a median sternotomy. Endovein harvest returned a very suitable conduit. Median sternotomy was performed, revealing a rigid chest wall as well as some pulmonary hyperinflation. I opened the cephalad half of the pericardium first, revealing an enlarged, mildly aneurysmal ascending aorta that did not contain palpable atherosclerotic plaque. The pericardial reflection was mobilized and two cannulation sutures were placed in the event that the patient required emergent cannulation for bypass. The right pleural space was not entered, and opening the left pleural space revealed emphysematous left lung. I did not immediately see the left internal mammary artery in its typical location, but elevating the operating table further I could appreciate that it was much farther lateral then usual. The left internal mammary artery was harvested in complete skeletonized fashion, but this required double the time, because I had to additionally reflect the accompanying medial vein in the opposite manner of a typical skeletonized harvest as well as working deep in the chest, seemingly near the midclavicular line. Caudally, the artery took an sharp bend medially, traversing the chest wall to a more normally located terminal bifurcation. Ultimately, a suitable conduit was mobilized to just before the terminal bifurcation and was prepared with topical papaverine. The patient had been systemically heparinized by this time, and a right-angled 32 [place] chest tube was placed subcostally in the left pleural space. The remainder of the pericardium was opened, revealing a dilated right atrium and mildly enlarged right ventricle. The rhythm was atrial fibrillation. The patient was cannulated for cardiopulmonary bypass using a 22 mm arterial return cannula and a three-stage venous cannula. Retrograde and antegrade cardioplegia catheters were inserted. After retrograde autologous priming, cardiopulmonary bypass was commenced. Only minimal systemic hypothermia was employed. Pericardial slings were placed beneath the inferior vena cava and through the transverse sinus. The calcified right main coronary artery was readily palpable, and the anterior interventricular region did not show obvious staining or extravasation into the epicardial fat. The guidewire was then withdrawn along with the guide catheter from the right radial artery sheath, at which point the waveform could be then correlated with the intra-aortic balloon pump waveform. The intra-aortic balloon pump was placed on standby mode. The ascending aorta was clamped under low-flow conditions, and the heart was arrested with cold blood cardioplegia administered antegradely and retrogradely. Additional retrograde and antegrade dosing was administered at regular intervals. The distal right coronary system was exposed first, using one of the slings. The posterior descending artery was not visible in the epicardium, and only filamentous posterior left ventricular branches were visible. After initially scoring longitudinally and dissecting in the epicardial fat in 2 locations without locating the vessel, I exposed the heavily calcified distal right main coronary artery and located the posterior descending artery branch one cm below the epicardial fat where myocardial became visible. I used additional sutures to suspend the myocardium. The posterior descending artery was opened about 2 cm from its origin where the wall was thickened but soft, revealing a modestly sized but clean internal lumen. An end to side anastomosis was performed with the proximal thigh segment of saphenous vein using running 7 0 Prolene, and the anastomosis was probed in either direction and de-aired with a hand-held cardioplegia syringe before securing the anastomotic suture. There appeared to be very good flow using the hand-held cardioplegia syringe. After securing hemostasis in the epicardial fat, the vein graft was routed along the lateral right atrium, leaving ample redundancy, en route to the greater curvature of the ascending aorta, where, through a 4.0 mm punch aortotomy, a proximal anastomosis was immediately performed with running 6 0 Prolene. This was preceded and followed by additional antegrade aortic root cardioplegia along with vein graft de-airing. The caudal pericardial sling was used to rotate the heart medially, exposing the very broad-based, enlarged, left atrial appendage. Using the hockey-stick measuring device, the base of the left atrial appendage was measured to a 45 mm AtriClip. The 45 mm AtriCure AtriClip Flex V was positioned over the left atrial appendage and advanced down to its base while the mortgage assistant teased the atrial appendage tissue beyond the jaws of the clip. The clip was then deployed without incident. Attention was turned to the anterior interventricular region. What initially appeared to be anterior descending coronary artery in an immediate subepicardial location was recognized to be the anterior cardiac vein. After dissecting just medial to the vein, the left anterior descending coronary artery, which appeared smaller than suggested by the pre intervention angiographic images, was located beneath the overlying vein, and was recognizable by a small focus of atherosclerotic plaque. There was no surrounding hemorrhage in the tissues. Antegrade cardioplegia was administered as the vessel was opened, but the vessel was recognized to be dissected in this location and an additional incision was made in the media, revealing the relatively small true lumen; the antegrade blood cardioplegia had entered the false lumen from the dissection point that was presumably several cm proximal to the arteriotomy. There was no visible atherosclerotic plaque at the site of the arteriotomy. It was evident that the dissection would need to be locally repaired during performance of the distal anastomosis. The internal mammary artery was more than twice the caliber of the coronary artery target vessel. There was excellent flow identified in the left internal mammary artery before commencing the end to side distal anastomosis. The intima-medial layer was tacked with each running 7 0 Prolene suture bite to the adjacent dissected adventitial layer. The anastomosis was probed in either direction with a 1 mm probe and de-aired with unclamping of the left internal mammary artery before securing the anastomotic suture. I was pleased with the appearance of the completed anastomosis; a single suture in the loose tissue adjacent to the internal mammary artery to the dissected adventitia l layer in the coronary artery corrected a small bleeding site in the latter. Terminal retrograde warm blood cardioplegia was administered and cardiac de- airing performed with the internal mammary artery unclamped. The heart began to fibrillate during this process and preemptive defibrillation was performed with a single application of the paddles before release of the aortic clamp under low-flow conditions. After release of the aortic clamp, the heart regained a regular rhythm without additional application of the defibrillator paddles. Temporary atrial and ventricular epicardial pacing leads were applied, and the heart was initially sequentially paced before developing sinus rhythm, with preemptive atrial pacing at 90 beats per minute. I was pleased with the appearance and configuration of all the completed bypass grafts. The ST segments were isoelectric. The intra-aortic balloon pump was retimed. The patient was gradually weaned from cardiopulmonary bypass with 4 mcg/kg per minute dobutamine. There was a marked increase in the amplitude of the systolic component of the arterial pressure waveform compared to preoperatively. There was improved biventricular contractility and post bypass transesophageal echocardiography demonstrated substantial improvement in interventricular septal contractility. The small jets of mitral regurgitation were also reduced in amplitude. The left atrial appendage had been completely excluded. With the intra-aortic balloon pump on standby, transit-time flow measurements of the two bypass grafts were made using the 3 mm ultrasound probe, with satisfactory flows and pulsatility indices. Protamine was administered and was well tolerated. Decannulation was performed uneventfully, and the aortic cannulation site was prophylactically reinforced. Subsequently an additional dose of protamine was administered after infusion of cell saver volume. A right angled 32 [place] chest tube was placed along the diaphragmatic aspect of the pericardium apically, and an additional 32 [place] straight chest tube was placed in the anterior mediastinum with its tip into the previously unopened right pleural space. The cardiac index was approximately 2.7 L/min per meter squared with normal pulmonary artery pressures and central venous pressure. When there was good surgical hemostasis, a reinforced sternal closure was performed using multiple extra #7 wires and completely interrupted closure of the pectoral and rectus fascia. It was at this point that it was recognized that while the sternotomy had been performed in a perfectly median location, the sternum itself was substantially wider than normal. The remainder of the soft tissue closure was performed in routine fashion. A negative pressure wound dressing was applied because of the patient's significant adipose anterior to the sternum. The patient was transferred to the CICU in stable condition with a modest FiO2 r equirement, on 3 mcg/kg per minute dobutamine, atrial pacing, and every-beat intra-aortic balloon pump counterpulsation; the dobutamine dose was cut in half almost immediately after arriving to the CICU. He received no banked blood products. Visit Coding Cardiology Date of Service: July 15, 2024 Billing Provider: NILESH LAKE Jr., MD Cardiology Evaluation and [place]: PROCEDURE ONLY CABG- Surgical Procedures: [id number] VEIN HARVEST, [id number] ARTERY- VEIN SINGLE, [id number] ARTERIAL SINGLE (Repair of coronary artery dissection a nd left atrial appendage exclusion need additional codes. Modifier 22 included with detailed description in procedure description. ) NILESH LAKE Jr., MD July 18, 2024 05:18
--- NOTE | 2024-07-18 06:10 | RADIOLOGY REPORT ---
EXAM: XR Chest, 1 View CLINICAL INDICATION: POST OP TECHNIQUE: Frontal view of the chest. COMPARISON: DI CHEST,SINGLE VIEW on DOS: 07/17/24, DI CHEST,SINGLE VIEW on DOS: 07/16/24, DI CHEST,SING LE VIEW on DOS: 07/15/24 FINDINGS: LUNGS AND PLEURAL SPACES: Left basilar atelectasis or pneumonia. HEART: Cardiomegaly with mild congestion. MEDIASTINUM: Unremarkable. Normal mediastinal contour. BONES/JOINTS: Unremarkable. No acute fracture. TUBES, LINES AND DEVICES: Right internal jugular central venous catheter tip in the superior vena c andrea. Left-sided basilar chest tube. No pneumothorax. OTHER FINDINGS: . IMPRESSION: 1. Left basilar atelectasis or pneumonia. 2. Cardiomegaly with mild congestion.
[2024-07-18] MEDS: INSULIN LISPRO 100 UNIT/ML INSULN.PEN MULTI-DOSE SQ SCH (07:00)
[2024-07-18] MEDS: normal saline 1000ml 1,000 ML IV SCH (08:00)
--- NOTE | 2024-07-18 08:00 | PROGRESS NOTE ---
Progress Note CV Providers to CC ~ Antibiotics Ordered?: No Subjective Subjective S/P Emergent CABG x 2 POD # 3. Alert, pleasant. Venkatesh is off. He got up late yesterday to the chair and says he felt steady on his feet. Objective Vitals Vital Signs Date Time Temp Pulse Resp B/P (MAP) Pulse Ox O2 Delivery O2 Flow Rate FiO2 07/18/24 07:00 99.0 98 11 150/80 (103) 98 Nasal Cannula 1.0 07/18/24 02:21 28 Lab Results: 07/18/24 0215 07/18/24 0215 Objective Lungs - some coarse BS, clearing with cough Heart - Irreg, irreg. A. fib, rate controlled. Abd./Extr - OK Incisions - CDI Coagulation Studies Laboratory Tests Test 07/15/24 16:21 07/15/24 21:00 07/15/24 21:31 07/15/24 22:50 Patient Sex (Coag) M Patient Height (Coag) 180cm Patient Weight (Coag) 92.0k KG Patient Blood Volume 6542 ML Pump Volume 1500 ML Total Blood Volume 8042 ML Projected Heparin Concentration 1.2 MG/KG Heparin Mono 152 Calculated Heparin Bolus 86186 UNITS Activated Coagulation Time Baseline 223 SEC (101-148) H Activated Coag Time 1.70 U/mL 444 SEC (193-297) H Activated Coag Time 2.84 U/mL 601 SEC (260-420) H Heparin Level (COAG) 0 MG/KG Calculated Heparin Req (Hep Assay) 80271 UNITS Calculated Protamine Req (Hep Assay 0 MG Activated Clotting Time 142 SEC (101-148) Fibrinogen 159 MG/DL (177-424) L Coagulation Clinical Comments Test 07/16/24 03:00 Prothrombin Time 12.0 SECONDS (9.0-12.0) INR International Normalized Ratio 1.2 INR Activated Partial Thromboplast Time 27 SECONDS (22-32) Coagulation Comments Cardiac Rhythm: Atrial Fibrillation Problem\Assessment\Plan Additional Plan POD # 3 Chronic A. fib. Creat downtrending. CT output minimal and serous. Platelets 48K DC CT's, PW's cut. Continue pulm toilet Consider lasix. To PCU. Sepsis Screening Reassessment Date: July 18, 2024 Supervising Co-signing Provider: LLOYD Coyle July 18, 2024 08:00
[2024-07-18] MEDS ORDERED: potassium Cl 20mEq/100mL bag 100 ML IV PRN (08:05)
[2024-07-18] MEDS ORDERED: magnesium sulf-water 4G/100mL 100 ML IV PRN (08:05)
[2024-07-18] MEDS ORDERED: potassium Cl 20 mEq SR tablet PO PRN (08:05)
[2024-07-18] MEDS ORDERED: potassium Cl 40MEQ/1/2NS 520ml 520 ML IV PRN (08:05)
[2024-07-18] MEDS ORDERED: magnesium sulf-water 2g/50mL 50 ML IV PRN (08:05)
[2024-07-18] MEDS ORDERED: potassium CL 10mEq/100ml bag 100 ML IV PRN (08:05)
[2024-07-18] MEDS ORDERED: potassium Cl 40MEQ/270ML bag 250 ML IV PRN (08:05)
[2024-07-18] MEDS: magnesium Cl slow-release 64mg tablet PO SCH (20:28)
[2024-07-18] MEDS: hydrALAZINE 20mg/ml inj. IV PRN (23:04)
[2024-07-19] VITALS (18 sets, daily range): BP systolic 130–172; BP diastolic 80–96; PULSE 71–117; RESP 15–22; TEMP 97.6–99.1; O2SAT 92–99
[2024-07-19 06:54] LABS: BASOPHILS % (AUTO) 0.1 % (0-1); EOSINOPHILS # (AUTO) 0.1 X10'3 (0-0.9); EOSINOPHILS % (AUTO) 0.4 % (0-6); HEMATOCRIT 27.5 % (42.0-52.0); HEMOGLOBIN 9.4 g/dl (14.0-17.9); LYMPHOCYTES # (AUTO) 2.3 X10'3 (1.1-4.8); LYMPHOCYTES % (AUTO) 14.9 % (21-51); MEAN CORPUSCULAR HEMOGLOBIN 34.4 PG (27.0-31.0); MEAN CORPUSCULAR HGB CONC 34.1 g/dL (33.0-36.5); MEAN CORPUSCULAR VOLUME 100.8 FL (78-98); MEAN PLATELET VOLUME 11.2 FL (7.4-10.4); MONOCYTES # (AUTO) 1.3 X10'3 (0-0.9); MONOCYTES % (AUTO) 8.3 % (2-12); NEUTROPHILS # (AUTO) 11.9 X10'3 (1.8-7.7); NEUTROPHILS % (AUTO) 76.3 % (42-75); PLATELET COUNT 75 X10'3 (140-440); RED BLOOD COUNT 2.73 X10'6 (4.70-6.10); RED CELL DISTRIBUTION WIDTH 13.9 % (11.5-14.5); WHITE BLOOD COUNT 15.7 X10'3 (4.5-11.0)
[2024-07-19 07:18] LABS: ALBUMIN 3.1 G/DL (3.4-5.0); ANION GAP 10 (8-16); BLOOD UREA NITROGEN 38 MG/DL (7-18); BUN/CREATININE RATIO 27.3 (10.0-20.0); CALCIUM 8.1 MG/DL (8.5-10.1); CHLORIDE 112 MMOL/L (99-107); CREATININE 1.39 MG/DL (0.60-1.10); GLUCOSE 107 MG/DL (70-104); MAGNESIUM 2.5 MG/DL (1.5-2.4); POTASSIUM 4.1 MMOL/L (3.5-5.1); SODIUM 147 MMOL/L (135-145); TOTAL CARBON DIOXIDE 24.8 MMOL/L (24-32); eCRCL 46 ML/MIN; eGFR 49 ML/MIN
[2024-07-19] MEDS: albuterol 2.5 MG/3 ML nebule NEB PRN (08:00)
--- NOTE | 2024-07-19 08:21 | PROGRESS NOTE ---
Progress Note CV Providers to CC ~ Progress Note: s/p eCABG x2 / TERESA on 07/15/2024 Antibiotics Ordered?: No Subjective Subjective "I feel a bit short of breath" Objective Vitals Vital Signs Date Time Temp Pulse Resp B/P (MAP) Pulse Ox O2 Delivery O2 Flow Rate FiO2 07/19/24 06:57 98.2 105 21 172/96 (121) 98 Nasal Cannula 2.0 07/19/24 02:55 28 Lab Results: 07/18/24 0215 07/19/24 0609 Objective awake and alert lungs- surprisingly clear no wheezes noted sat 98% on RA Cor - irr-irr chronic a-fib abd - soft nt/nd +Bm ext- 1+ peripheral edema Incision- covered c/d/i ambulation is improving Coagulation Studies Laboratory Tests Test 07/15/24 16:21 07/15/24 21:00 07/15/24 21:31 07/15/24 22:50 Patient Sex (Coag) M Patient Height (Coag) 180cm Patient Weight (Coag) 92.0k KG Patient Blood Volume 6542 ML Pump Volume 1500 ML Total Blood Volume 8042 ML Projected Heparin Concentration 1.2 MG/KG Heparin [place] 152 Calculated Heparin Bolus 36656 UNITS Activated Coagulation Time Baseline 223 SEC (101-148) H Activated Coag Time 1.70 U/mL 444 SEC (193-297) H Activated Coag Time 2.84 U/mL 601 SEC (260-420) H Heparin Level (COAG) 0 MG/KG Calculated Heparin Req (Hep Assay) 96983 UNITS Calculated Protamine Req (Hep Assay 0 MG Activated Clotting Time 142 SEC (101-148) Fibrinogen 159 MG/DL (177-424) L Coagulation Clinical Comments Test 07/16/24 03:00 Prothrombin Time 12.0 SECONDS (9.0-12.0) INR International Normalized Ratio 1.2 INR Activated Partial Thromboplast Time 27 SECONDS (22-32) Coagulation Comments Cardiac Rhythm: Atrial Fibrillation Problem\\Assessment\\Plan Problems/Diagnosis: (1) S/P CABG x 2 Assessment & Plan: making progress on POd #4 -not quite ready for discharge KEVIN is improving - creatinine nearing baseline BP creeping up - will increase lopressor to 25 mg po bid, start amlodipine 5 mg daily subjectively short of breath this morning - will begin gentle diuresis - -a bit of a cough. I gave further encouragement for IS efforts -start mucinex -start Rocephin with cough and elevated WBC Thrombocytopenia improving up to 74,000 today -aspirin being held with low platelet count - Patient was on Xarelto for chronic A-fib. -plan is for plavix and Xarelto at discharge (no aspirin) (2) Chronic atrial fibrillation (3) Hypertension (4) Hypothyroidism (5) COPD (chronic obstructive pulmonary disease) MELANIE CRUZ July 19, 2024 08:20
[2024-07-19] MEDS: guaiFENesin ER 600mg tablet PO SCH (09:06)
[2024-07-19] MEDS: furosemide 20 MG/2 ML vial IV SCH (09:06)
[2024-07-19] MEDS: CefTRIAXone 2gm/D5W 50ml BAG 50 ML IV SCH (09:07)
[2024-07-19] MEDS: amLODIPine 5mg tablet PO SCH (09:11)
--- NOTE | 2024-07-19 09:50 | RADIOLOGY REPORT ---
CHEST RADIOGRAPH Indication: dyspnea post cabg Technique: Single frontal view of the chest was obtained Comparison: DI CHEST,SINGLE VIEW on DOS: 07/18/24, DI CHEST,SINGLE VIEW on DOS: 07/17/24, DI CHEST,SINGLE VIEW on DOS: 07/16/24, DI CHEST,SINGLE VIEW on DOS: 07/15/24 FINDINGS: Lines and Tubes: None Lungs: No focal consolidation. Pleura: Left basilar opacity No pneumothorax. Cardiomediastinal contours: Unremarkable Bones: Median sternotomy IMPRESSION: Left basilar opacity Cardiomegaly with mild CHF
[2024-07-19] MEDS: ipratropium/albuterol 3ml nebule NEB ONE (10:29)
[2024-07-19] MEDS: metoprolol tartrate 25mg tablet PO SCH (20:38)
[2024-07-19] MEDS: atorvastatin 20mg tablet PO SCH (20:41)
[2024-07-20] VITALS (12 sets, daily range): BP systolic 138–155; BP diastolic 75–94; PULSE 71–107; RESP 16–30; TEMP 97.6–98.3; O2SAT 94–100
[2024-07-20 06:26] LABS: BASOPHILS % (AUTO) 0.3 % (0-1); EOSINOPHILS # (AUTO) 0.2 X10'3 (0-0.9); EOSINOPHILS % (AUTO) 1.9 % (0-6); HEMATOCRIT 26.4 % (42.0-52.0); HEMOGLOBIN 9.1 g/dl (14.0-17.9); LYMPHOCYTES # (AUTO) 1.3 X10'3 (1.1-4.8); LYMPHOCYTES % (AUTO) 12.4 % (21-51); MEAN CORPUSCULAR HEMOGLOBIN 35.1 PG (27.0-31.0); MEAN CORPUSCULAR HGB CONC 34.6 g/dL (33.0-36.5); MEAN CORPUSCULAR VOLUME 101.5 FL (78-98); MEAN PLATELET VOLUME 10.3 FL (7.4-10.4); MONOCYTES # (AUTO) 1.1 X10'3 (0-0.9); NEUTROPHILS # (AUTO) 7.9 X10'3 (1.8-7.7); NEUTROPHILS % (AUTO) 75.4 % (42-75); PLATELET COUNT 86 X10'3 (140-440); RED CELL DISTRIBUTION WIDTH 13.8 % (11.5-14.5); WHITE BLOOD COUNT 10.5 X10'3 (4.5-11.0)
--- NOTE | 2024-07-20 07:13 | RADIOLOGY REPORT ---
EXAM: XR Chest, 1 View CLINICAL INDICATION: post cabg TECHNIQUE: Frontal view of the chest. COMPARISON: DI CHEST,SINGLE VIEW on DOS: 07/19/24, DI CHEST,SINGLE VIEW on DOS: 07/18/24, DI CHEST,SING LE VIEW on DOS: 07/17/24, DI CHEST,SINGLE VIEW on DOS: 07/16/24, DI CHEST,SINGLE VIEW on DOS: 07/15/24 FINDINGS: LUNGS AND PLEURAL SPACES: Left basilar atelectasis or pneumonia. Left pleural effusion. No pneumo thorax. HEART: Cardiomegaly without overt failure. MEDIASTINUM: Unremarkable. Normal mediastinal contour. BONES/JOINTS: Unremarkable. No acute fracture. OTHER FINDINGS: . IMPRESSION: 1. Left basilar atelectasis or pneumonia. 2. Cardiomegaly without overt failure.
[2024-07-20 07:20] LABS: ALBUMIN 2.8 G/DL (3.4-5.0); ANION GAP 11 (8-16); BLOOD UREA NITROGEN 28 MG/DL (7-18); BUN/CREATININE RATIO 24.1 (10.0-20.0); CALCIUM 8.4 MG/DL (8.5-10.1); CHLORIDE 111 MMOL/L (99-107); CREATININE 1.16 MG/DL (0.60-1.10); GLUCOSE 107 MG/DL (70-104); SODIUM 147 MMOL/L (135-145); TOTAL CARBON DIOXIDE 25.1 MMOL/L (24-32); eCRCL 55 ML/MIN; eGFR 61 ML/MIN
[2024-07-20] MEDS: clopidogrel 75mg tablet PO SCH (07:32)
[2024-07-20] MEDS: furosemide 20 MG/2 ML vial IV SCH (08:00)
--- NOTE | 2024-07-20 09:50 | PROGRESS NOTE ---
Progress Note CV Providers to CC ~ Progress Note: s/p eCABG x2 / TERESA on 07/15/2024 Antibiotics Ordered?: Yes If Yes, Indications?: left lung opacity ? pneumonia Subjective Subjective breathing somewhat better today Objective Vitals Vital Signs Date Time Temp Pulse Resp B/P (MAP) Pulse Ox O2 Delivery O2 Flow Rate FiO2 07/20/24 09:06 95 20 Nasal Cannula 1.0 07/20/24 08:58 98 28 07/20/24 02:00 97.6 155/94 (114) Lab Results: 07/20/24 0601 07/20/24 0601 Objective cxr with left basilar opacity slightly better. mild generalized interstitial pulm edema awake and alert lungs- faint exp. wheeze noted sat 98% on 2 L Cor - irr-irr chronic a-fib abd - soft nt/nd +Bm voiding well ext- 1+ peripheral edema Incision- covered c/d/i ambulation is improving Coagulation Studies Laboratory Tests Test 07/15/24 16:21 07/15/24 21:00 07/15/24 21:31 07/15/24 22:50 Patient Sex (Coag) M Patient Height (Coag) 180cm Patient Weight (Coag) 92.0k KG Patient Blood Volume 6542 ML Pump Volume 1500 ML Total Blood Volume 8042 ML Projected Heparin Concentration 1.2 MG/KG Heparin [place] 152 Calculated Heparin Bolus 30601 UNITS Activated Coagulation Time Baseline 223 SEC (101-148) H Activated Coag Time 1.70 U/mL 444 SEC (193-297) H Activated Coag Time 2.84 U/mL 601 SEC (260-420) H Heparin Level (COAG) 0 MG/KG Calculated Heparin Req (Hep Assay) 96978 UNITS Calculated Protamine Req (Hep Assay 0 MG Activated Clotting Time 142 SEC (101-148) Fibrinogen 159 MG/DL (177-424) L Coagulation Clinical Comments Test 07/16/24 03:00 Prothrombin Time 12.0 SECONDS (9.0-12.0) INR International Normalized Ratio 1.2 INR Activated Partial Thromboplast Time 27 SECONDS (22-32) Coagulation Comments Cardiac Rhythm: Atrial Fibrillation Problem\Assessment\Plan Problems/Diagnosis: (1) S/P CABG x 2 Assessment & Plan: making progress on POd #5 -not ready for discharge subjectively less dyspneic but he is on o2 now - cxr with perhaps increased pulm edema -will continue diurese today add one time dose of Zaroxolyn -check echo today for LV function -possibly add spironalactone tomorrow -Sodium creeping up - will continue to monitor KEVIN resolved BP still elevated yesterday we increased lopressor to 25 mg po bid and started amlodipine 5 mg daily - start Losartan 50 mg po daily today Rocephin for cough, lung opacity Thrombocytopenia improving up to 86,000 today Patient was on Xarelto for chronic A-fib. -To be on plavix and Xarelto (no aspirin) (2) Chronic atrial fibrillation (3) Hypertension (4) Hypothyroidism (5) COPD (chronic obstructive pulmonary disease) MELANIE CRUZ July 20, 2024 09:50
[2024-07-20] MEDS: metolazone 2.5mg tablet PO ONE (11:13)
[2024-07-20] MEDS: losartan 50mg tablet PO SCH (11:14)
--- NOTE | 2024-07-20 13:08 | CARDIOLOGY REPORT ---
APPROVED REPORT EXAM: Limited 2D Echocardiogram. Patient Location: 3019 [address] Blood Pressure: 155/94 mmHg Heart Rate: 88-100 bpm Rhythm: Atrial Fibrillation Indications Assess LV Function S/P CABG X 2 (07/15/2024 [facility]) Chest Pain Hx of Chronic Atrial Fibrillation [employer] Restorer: Rudolph Rocha MD Previous echo: 07/15/2024 [facility] EF:55%, 60-65% on 4 mcg Dobutamine 2D Dimensions RVDd 3.4 cm LA Diam4.2 cm IVSd 1.2 (0.7-1.1cm) LVDd 4.8 cm PWd 1.3 (0.7-1.1cm) IVSs 1.4 (0.8-1.2cm) RA Minor4.2 cmLVDs 3.7 (2.5-4.0cm) PWs 1.5 (0.8-1.2cm) LVEF(%) 48.6 (>50%) FS (%) 24.4 % SV 45.4 ml CO 6.8 L/min M-Mode Dimensions IVSd 1.14 (0.7-1.1cm) LVDd 5.70 (4.0-5.6cm) PWd 1.18 (0.7-1.1cm) IVSs 1.27 cm LVDs 4.39 (2.0-3.8cm) FS (%) 23 % PWs 1.97 cm ESV(Teich) 87.0 ml LVEF(%) 46 (>50%) Tricuspid Valve TR P. Velocity 220 cm/s RAP ESTIMATE 10 mmHg TR Peak Gr. 19 mmHg RVSP 29 mmHg LEFT VENTRICLE The LV is normal in size with mildly reduced function. Mid devin- and inferoseptal segments appear h ypokinetic. Mild concentric hypertrophy. Overall LVEF is around 50%. RIGHT VENTRICLE Right ventricle appears to be mildly dilated. Estimated PA systolic pressure is 29 mmHg. ATRIA Left atrium is mildly dilated. Right atrium appears to be mildly dilated. AORTIC VALVE Aortic valve is grossly normal in structure. MITRAL VALVE Mitral valve is grossly normal in structure. PERICARDIUM Grossly normal pericardium. No pericardial effusion seen. Other Information Study Quality: Fair Conclusion The LV is normal in size with mildly reduced function. Mid devin- and inferoseptal segments appear hypokinetic. Mild concentric hypertrophy. Overall LVEF is around 50%. Right ventricle appears to be mildly dilated. Estimated PA systolic pressure is 29 mmHg. Left atrium is mildly dilated. Right atrium appears to be mildly dilated. Aortic valve is grossly normal in structure. Mitral valve is grossly normal in structure. Grossly normal pericardium. No pericardial effusion seen.
[2024-07-20] MEDS: SPIRIVA RESPIMAT 2.5 MCG IH SCH (20:07)
[2024-07-20] MEDS: potassium Cl 20 mEq SR tablet PO PRN (21:41)
[2024-07-21] VITALS (9 sets, daily range): BP systolic 115–149; BP diastolic 58–97; PULSE 87–101; RESP 14–26; TEMP 97.1–98.4; O2SAT 95–100
[2024-07-21 06:33] LABS: BASOPHILS % (AUTO) 0.2 % (0-1); EOSINOPHILS # (AUTO) 0.2 X10'3 (0-0.9); EOSINOPHILS % (AUTO) 2.1 % (0-6); HEMATOCRIT 25.6 % (42.0-52.0); HEMOGLOBIN 8.9 g/dl (14.0-17.9); LYMPHOCYTES # (AUTO) 1.4 X10'3 (1.1-4.8); LYMPHOCYTES % (AUTO) 11.9 % (21-51); MEAN CORPUSCULAR HEMOGLOBIN 34.9 PG (27.0-31.0); MEAN CORPUSCULAR HGB CONC 34.8 g/dL (33.0-36.5); MEAN CORPUSCULAR VOLUME 100.4 FL (78-98); MEAN PLATELET VOLUME 10.1 FL (7.4-10.4); MONOCYTES # (AUTO) 1.1 X10'3 (0-0.9); MONOCYTES % (AUTO) 9.2 % (2-12); NEUTROPHILS % (AUTO) 76.6 % (42-75); PLATELET COUNT 105 X10'3 (140-440); RED BLOOD COUNT 2.56 X10'6 (4.70-6.10); RED CELL DISTRIBUTION WIDTH 13.5 % (11.5-14.5); WHITE BLOOD COUNT 11.7 X10'3 (4.5-11.0)
[2024-07-21 06:56] LABS: ALBUMIN 2.8 G/DL (3.4-5.0); ANION GAP 8 (8-16); BLOOD UREA NITROGEN 26 MG/DL (7-18); BUN/CREATININE RATIO 21.1 (10.0-20.0); CALCIUM 8.7 MG/DL (8.5-10.1); CHLORIDE 108 MMOL/L (99-107); CREATININE 1.23 MG/DL (0.60-1.10); GLUCOSE 114 MG/DL (70-104); MAGNESIUM 1.8 MG/DL (1.5-2.4); POTASSIUM 3.9 MMOL/L (3.5-5.1); SODIUM 142 MMOL/L (135-145); TOTAL CARBON DIOXIDE 26.3 MMOL/L (24-32); eCRCL 52 ML/MIN; eGFR 57 ML/MIN
[2024-07-21] MEDS: furosemide 20 MG/2 ML vial IV ONE (07:43)
[2024-07-21] MEDS: ferrous sulfate 325mg tablet PO SCH (07:45)
[2024-07-21] MEDS: metolazone 2.5mg tablet PO ONE (07:46)
[2024-07-21] MEDS: ipratropium 0.5 MG/2.5ML nebule NEB SCH (08:00)
--- NOTE | 2024-07-21 08:03 | RADIOLOGY REPORT ---
CHEST RADIOGRAPH Indication: DYSPNEA, KNOWN COPD Technique: Single frontal view of the chest was obtained COMPARISON: DI CHEST,SINGLE VIEW on DOS: 07/20/24, DI CHEST,SINGLE VIEW on DOS: 07/19/24, DI CHEST,SINGL E VIEW on DOS: 07/18/24, DI CHEST,SINGLE VIEW on DOS: 07/17/24, DI CHEST,SINGLE VIEW on DOS: 07/16/24 FINDINGS: Lines and Tubes: Median sternotomy Lungs: Mild congestion Pleura: No effusion. No pneumothorax. Cardiomediastinal contours: Cardiomegaly Bones: Unremarkable IMPRESSION: No significant interval change.
[2024-07-21 08:15] LABS: NUCLEATED RED BLOOD CELLS 1 /100WBC (0-0); TOTAL CELLS COUNTED 100
[2024-07-21 08:16] LABS: PLATELET ESTIMATE DECREASED; POLYCHROMASIA FEW
--- NOTE | 2024-07-21 09:25 | PROGRESS NOTE ---
Progress Note CV Providers to CC ~ Progress Note: s/p eCABG x2 / TERESA on 07/15/2024 Antibiotics Ordered?: Yes If Yes, Indications?: lung opacity Objective Vitals Vital Signs Date Time Temp Pulse Resp B/P (MAP) Pulse Ox O2 Delivery O2 Flow Rate FiO2 07/21/24 08:52 88 24 Room Air 0.0 21 07/21/24 08:52 96 07/21/24 02:00 97.5 115/76 (89) Lab Results: 07/21/24 0620 07/21/24 0620 Objective cxr - slowly clearing awake and alert lungs- clear and equal sat 98% on 2 L Cor - irr-irr chronic a-fib abd - soft nt/nd +Bm voiding well ext- 1+ peripheral edema Incision- looks good, no sign of infection ambulation continues to improve Coagulation Studies Laboratory Tests Test 07/15/24 16:21 07/15/24 21:00 07/15/24 21:31 07/15/24 22:50 Patient Sex (Coag) M Patient Height (Coag) 180cm Patient Weight (Coag) 92.0k KG Patient Blood Volume 6542 ML Pump Volume 1500 ML Total Blood Volume 8042 ML Projected Heparin Concentration 1.2 MG/KG Heparin [place] 152 Calculated Heparin Bolus 61553 UNITS Activated Coagulation Time Baseline 223 SEC (101-148) H Activated Coag Time 1.70 U/mL 444 SEC (193-297) H Activated Coag Time 2.84 U/mL 601 SEC (260-420) H Heparin Level (COAG) 0 MG/KG Calculated Heparin Req (Hep Assay) 26696 UNITS Calculated Protamine Req (Hep Assay 0 MG Activated Clotting Time 142 SEC (101-148) Fibrinogen 159 MG/DL (177-424) L Coagulation Clinical Comments Test 07/16/24 03:00 Prothrombin Time 12.0 SECONDS (9.0-12.0) INR International Normalized Ratio 1.2 INR Activated Partial Thromboplast Time 27 SECONDS (22-32) Coagulation Comments Cardiac Rhythm: Atrial Fibrillation Problem\Assessment\Plan Problems/Diagnosis: (1) S/P CABG x 2 Assessment & Plan: making progress on POd #6 good response to diuresis will get low dose Lasix and Zaroxolyn again today - on oxygen intermittently - probably doesn't need it at all echo yesterday showed EF 50% no effusion Sodium normalized Rocephin for cough, lung opacity - which is nearly resolved a bit anemic - started on FeSO4 - monitoring Cardiac meds include: plavix, xarelto, cozaar, lipitor, lopressor, amlodipine [facility]. (2) Chronic atrial fibrillation (3) Hypertension (4) Hypothyroidism (5) COPD (chronic obstructive pulmonary disease) (6) CVA, old, aphasia (7) Anemia due to acute blood loss MELANIE CRUZ July 21, 2024 09:25
[2024-07-21] MEDS: rivaroxaban 20mg tablet PO SCH (18:36)
[2024-07-22] VITALS (10 sets, daily range): BP systolic 100–136; BP diastolic 62–88; PULSE 12–103; RESP 10–22; TEMP 97.1–98.4; O2SAT 90–99
[2024-07-22 07:50] LABS: ANION GAP 8 (8-16); BLOOD UREA NITROGEN 28 MG/DL (7-18); BUN/CREATININE RATIO 21.2 (10.0-20.0); CALCIUM 8.9 MG/DL (8.5-10.1); CHLORIDE 106 MMOL/L (99-107); CREATININE 1.32 MG/DL (0.60-1.10); GLUCOSE 113 MG/DL (70-104); POTASSIUM 4.3 MMOL/L (3.5-5.1); SODIUM 142 MMOL/L (135-145); TOTAL CARBON DIOXIDE 28.1 MMOL/L (24-32); eCRCL 48 ML/MIN; eGFR 52 ML/MIN
--- NOTE | 2024-07-22 08:29 | PROGRESS NOTE ---
Progress Note CV Providers to CC ~ Progress Note: s/p eCABG x2 / TERESA on 07/15/2024 Antibiotics Ordered?: Yes If Yes, Indications?: lung infiltrate Subjective Subjective no complaints Objective Vitals Vital Signs Date Time Temp Pulse Resp B/P (MAP) Pulse Ox O2 Delivery O2 Flow Rate FiO2 07/22/24 07:37 112 07/22/24 02:00 97.9 20 136/78 (97) 96 Room Air 07/22/24 02:00 0 21 Lab Results: 07/21/24 0620 07/22/24 0701 Objective cxr - non today awake and alert lungs- clear and equal no wheezing currently on RA Cor - irr-irr chronic a-fib abd - soft nt/nd +Bm voiding well ext- 1+ peripheral edema Incision- looks good, no sign of infection ambulation continues to improve Coagulation Studies Laboratory Tests Test 07/15/24 16:21 07/15/24 21:00 07/15/24 21:31 07/15/24 22:50 Patient Sex (Coag) M Patient Height (Coag) 180cm Patient Weight (Coag) 92.0k KG Patient Blood Volume 6542 ML Pump Volume 1500 ML Total Blood Volume 8042 ML Projected Heparin Concentration 1.2 MG/KG Heparin [place] 152 Calculated Heparin Bolus 78815 UNITS Activated Coagulation Time Baseline 223 SEC (101-148) H Activated Coag Time 1.70 U/mL 444 SEC (193-297) H Activated Coag Time 2.84 U/mL 601 SEC (260-420) H Heparin Level (COAG) 0 MG/KG Calculated Heparin Req (Hep Assay) 04171 UNITS Calculated Protamine Req (Hep Assay 0 MG Activated Clotting Time 142 SEC (101-148) Fibrinogen 159 MG/DL (177-424) L Coagulation Clinical Comments Test 07/16/24 03:00 Prothrombin Time 12.0 SECONDS (9.0-12.0) INR International Normalized Ratio 1.2 INR Activated Partial Thromboplast Time 27 SECONDS (22-32) Coagulation Comments Cardiac Rhythm: Atrial Fibrillation Problem\Assessment\Plan Problems/Diagnosis: (1) S/P CABG x 2 Assessment & Plan: making progress on POd #7 Rocephin for cough, lungopacity switching to oral augmentin running a bit tachycardic- will increase Lopressor to 37.5 mg bid -[facility] Cardiac meds include: plavix, xarelto, cozaar, lipitor, lopressor, amlodipine [facility]. (2) Chronic atrial fibrillation (3) Hypertension (4) Hypothyroidism (5) COPD (chronic obstructive pulmonary disease) (6) CVA, old, aphasia (7) Anemia due to acute blood loss MELANIE CRUZ July 22, 2024 08:29
[2024-07-22] MEDS: amox tr/potassium clavulanate 875/125mg TAB PO SCH (17:27)
[2024-07-22] MEDS: metoprolol tartrate 12.5mg (1/2 tablet) PO SCH (20:02)
[2024-07-23] VITALS (11 sets, daily range): BP systolic 80–125; BP diastolic 56–85; PULSE 79–121; RESP 13–22; TEMP 96.9–98.6; O2SAT 91–98
[2024-07-23 07:04] LABS: ALBUMIN 2.9 G/DL (3.4-5.0); ANION GAP 9 (8-16); BLOOD UREA NITROGEN 30 MG/DL (7-18); BUN/CREATININE RATIO 23.3 (10.0-20.0); CALCIUM 8.8 MG/DL (8.5-10.1); CHLORIDE 106 MMOL/L (99-107); CREATININE 1.29 MG/DL (0.60-1.10); GLUCOSE 108 MG/DL (70-104); POTASSIUM 3.8 MMOL/L (3.5-5.1); SODIUM 141 MMOL/L (135-145); TOTAL CARBON DIOXIDE 26.4 MMOL/L (24-32); eCRCL 61 ML/MIN; eGFR 54 ML/MIN
--- NOTE | 2024-07-23 08:47 | PROGRESS NOTE ---
Progress Note CV Providers to CC ~ Progress Note: s/p eCABG x2 / TERESA on 07/15/2024 Antibiotics Ordered?: No Objective Vitals Vital Signs Date Time Temp Pulse Resp B/P (MAP) Pulse Ox O2 Delivery O2 Flow Rate FiO2 07/23/24 08:35 109 07/23/24 08:18 20 Room Air 0.0 21 07/23/24 08:17 98 07/23/24 02:00 98.6 125/72 (89) Lab Results: 07/21/24 0620 07/23/24 0612 Objective awake and alert lungs- clear and equal non labored on RA Cor - irr-irr chronic a-fib abd - soft nt/nd +Bm voiding well ext- 1+ peripheral edema Incision- looks good, no sign of infection Coagulation Studies Laboratory Tests Test 07/15/24 16:21 07/15/24 21:00 07/15/24 21:31 07/15/24 22:50 Patient Sex (Coag) M Patient Height (Coag) 180cm Patient Weight (Coag) 92.0k KG Patient Blood Volume 6542 ML Pump Volume 1500 ML Total Blood Volume 8042 ML Projected Heparin Concentration 1.2 MG/KG Heparin [place] 152 Calculated Heparin Bolus 37622 UNITS Activated Coagulation Time Baseline 223 SEC (101-148) H Activated Coag Time 1.70 U/mL 444 SEC (193-297) H Activated Coag Time 2.84 U/mL 601 SEC (260-420) H Heparin Level (COAG) 0 MG/KG Calculated Heparin Req (Hep Assay) 26255 UNITS Calculated Protamine Req (Hep Assay 0 MG Activated Clotting Time 142 SEC (101-148) Fibrinogen 159 MG/DL (177-424) L Coagulation Clinical Comments Test 07/16/24 03:00 Prothrombin Time 12.0 SECONDS (9.0-12.0) INR International Normalized Ratio 1.2 INR Activated Partial Thromboplast Time 27 SECONDS (22-32) Coagulation Comments Cardiac Rhythm: Atrial Fibrillation Problem\Assessment\Plan Problems/Diagnosis: (1) S/P CABG x 2 Assessment & Plan: making progress on POd #8 BP is low this afternoon. he does endorse lightheadedness earlier. Currently he feels fine. I wll d/c his lasix and Cozaar as well as norco -switch to Tramadol for pain med Cardiac meds include: plavix, xarelto, cozaar, lipitor, lopressor, amlodipine plan is for discharge to [facility] when approved. (2) Chronic atrial fibrillation (3) Hypertension (4) Hypothyroidism (5) COPD (chronic obstructive pulmonary disease) (6) CVA, old, aphasia (7) Anemia due to acute blood loss MELANIE CRUZ July 23, 2024 08:47
[2024-07-23] MEDS: HYDROcodone/acetaminophen 10/325mg tab PO PRN (10:06)
[2024-07-23] MEDS: magnesium hydroxide 30ml (MOM) UD suspension PO PRN (17:34)
[2024-07-23] MEDS: traMADol 50MG tablet PO PRN (23:02)
[2024-07-24] VITALS (9 sets, daily range): BP systolic 103–166; BP diastolic 52–92; PULSE 71–94; RESP 18–20; TEMP 97–98.7; O2SAT 94–100
[2024-07-24 07:07] LABS: BASOPHILS # (AUTO) 0.1 X10'3 (0-0.2); BASOPHILS % (AUTO) 0.7 % (0-1); EOSINOPHILS # (AUTO) 0.2 X10'3 (0-0.9); EOSINOPHILS % (AUTO) 2.2 % (0-6); HEMATOCRIT 28.9 % (42.0-52.0); HEMOGLOBIN 9.8 g/dl (14.0-17.9); LYMPHOCYTES # (AUTO) 1.6 X10'3 (1.1-4.8); LYMPHOCYTES % (AUTO) 15.4 % (21-51); MEAN CORPUSCULAR HEMOGLOBIN 34.3 PG (27.0-31.0); MEAN CORPUSCULAR HGB CONC 33.9 g/dL (33.0-36.5); MEAN CORPUSCULAR VOLUME 101.1 FL (78-98); MEAN PLATELET VOLUME 10.2 FL (7.4-10.4); MONOCYTES % (AUTO) 9.3 % (2-12); NEUTROPHILS # (AUTO) 7.5 X10'3 (1.8-7.7); NEUTROPHILS % (AUTO) 72.4 % (42-75); PLATELET COUNT 233 X10'3 (140-440); RED BLOOD COUNT 2.86 X10'6 (4.70-6.10); WHITE BLOOD COUNT 10.3 X10'3 (4.5-11.0)
[2024-07-24 07:28] LABS: ALBUMIN 3.1 G/DL (3.4-5.0); ANION GAP 9 (8-16); BLOOD UREA NITROGEN 32 MG/DL (7-18); BUN/CREATININE RATIO 19.4 (10.0-20.0); CALCIUM 8.7 MG/DL (8.5-10.1); CHLORIDE 103 MMOL/L (99-107); CREATININE 1.65 MG/DL (0.60-1.10); GLUCOSE 103 MG/DL (70-104); MAGNESIUM 2.2 MG/DL (1.5-2.4); POTASSIUM 3.8 MMOL/L (3.5-5.1); SODIUM 139 MMOL/L (135-145); TOTAL CARBON DIOXIDE 27.3 MMOL/L (24-32); eCRCL 48 ML/MIN; eGFR 40 ML/MIN
[2024-07-24] MEDS: normal saline 500ml IV soln 500 ML IV SCH (09:50)
--- NOTE | 2024-07-24 09:53 | PROGRESS NOTE ---
Progress Note CV Providers to CC ~ Progress Note: s/p eCABG x2 / TERESA on 07/15/2024 Antibiotics Ordered?: No Subjective Subjective no complaints Objective Vitals Vital Signs Date Time Temp Pulse Resp B/P (MAP) Pulse Ox O2 Delivery O2 Flow Rate FiO2 07/24/24 08:42 94 07/24/24 08:27 18 Room Air 0.0 07/24/24 08:18 98 21 07/24/24 06:00 97.5 107/52 (70) Lab Results: 07/24/24 0630 07/24/24 0630 Objective awake and alert comfortable lungs- clear and equal non labored on RA Cor - irr-irr chronic a-fib abd - soft nt/nd +Bm voiding well ext- minimal edema well perfused x4 Incision- looks good, no sign of infection Coagulation Studies Laboratory Tests Test 07/15/24 16:21 07/15/24 21:00 07/15/24 21:31 07/15/24 22:50 Patient Sex (Coag) M Patient Height (Coag) 180cm Patient Weight (Coag) 92.0k KG Patient Blood Volume 6542 ML Pump Volume 1500 ML Total Blood Volume 8042 ML Projected Heparin Concentration 1.2 MG/KG Heparin [place] 152 Calculated Heparin Bolus 18061 UNITS Activated Coagulation Time Baseline 223 SEC (101-148) H Activated Coag Time 1.70 U/mL 444 SEC (193-297) H Activated Coag Time 2.84 U/mL 601 SEC (260-420) H Heparin Level (COAG) 0 MG/KG Calculated Heparin Req (Hep Assay) 86614 UNITS Calculated Protamine Req (Hep Assay 0 MG Activated Clotting Time 142 SEC (101-148) Fibrinogen 159 MG/DL (177-424) L Coagulation Clinical Comments Test 07/16/24 03:00 Prothrombin Time 12.0 SECONDS (9.0-12.0) INR International Normalized Ratio 1.2 INR Activated Partial Thromboplast Time 27 SECONDS (22-32) Coagulation Comments Cardiac Rhythm: Atrial Fibrillation Problem\Assessment\Plan Problems/Diagnosis: (1) S/P CABG x 2 Assessment & Plan: making progress on POd #9 Still somewhat hypotensive SBP 93 currently Creatinine has bumped to 1.65 Yesterday we d/c'ed his lasix and Cozaar as well as norco - will give him some fluid today I suspect he is intravascularly dry and should respond well to fluid. Will keep Lopressor at current dose for now as this is keeping his rate controlled. Cardiac meds include: plavix, xarelto, cozaar, lipitor, lopressor, amlodipine plan is for discharge to [facility] when approved. (2) Chronic atrial fibrillation (3) Hypertension (4) Hypothyroidism (5) COPD (chronic obstructive pulmonary disease) (6) CVA, old, aphasia (7) Anemia due to acute blood loss MELANIE CRUZ July 24, 2024 09:53
--- NOTE | 2024-07-24 23:16 | RADIOLOGY REPORT ---
Clinical History fall with head strike Comparison None Technique: Noncontrast CT volume data aquisition of the head viewed in axial, coronal and sagittal pl anes. All CT scans at this medical facility are performed using dose modulation techniques as appropriate t o a performed exam including the following: Automated exposure control was utilized; adjustment of th e mA and/or kV according to patient size; and use of iterative reconstruction technique. All CT studies are reported to the Dose Index Registry of the [employer]. Without Contrast Radiation Dose: CTDI (mGy): 61.08; DLP (mGy-cm): 1213.37 MICHELLE HASSAN, [id number] FINDINGS: There is hypodensity in left temporoparietal/parieto-occipital region suggesting old infarct. Mild cortical and central atrophy is present with minimal probable chronic ischemic change in white m atter. Ventricles are of normal shape and position. There are no intra-axial or extra-axial collections of blood or fluid. There is no mass, mass effect or shift of midline structures. There is no CT eviden ce for acute ischemic infarct. MRI is more sensitive for this diagnosis. Posterior fossa structures are unremarkable. Sella and parasellar regions are unremarkable. Basal c isterns are patent. Orbits and orbital contents are unremarkable, paranasal sinuses and mastoid air cells clear, osseous structures intact. IMPRESSION: 1. Mild cortical and central atrophy, minimal probable chronic ischemic change in white matter, old infarct on the left. 2. No evidence of acute intracranial pathology identified on noncontrast CT. 3. No evidence of intracranial hemorrhage, no evidence of skull fracture. This report was electronically signed by Ghassan Colvin MD on 07/24/2024 11:12:52 PM.
[2024-07-25 00:14] VITALS: PULSE 80; RESP 18; O2SAT 98
--- NOTE | 2024-07-25 00:28 | RADIOLOGY REPORT ---
Clinical History Fall RIGHT ANKLE Comparison None Technique: 3 views Without Contrast MICHELLE HASSAN, [id number] FINDINGS: Osseous structures are anatomically aligned, with no evidence of acute fracture, dislocation or sublu xation. Small well-corticated bone fragment adjacent to medial malleolus is likely due to old trauma .. The ankle mortise is aligned. Soft tissue structures are grossly unremarkable. IMPRESSION: No evidence of acute osseous injury. Likely old trauma involving the medial malleolus. This report was electronically signed by Darshan Bautista MD on 07/25/2024 12:24:53 AM.
[2024-07-25 02:00] VITALS: BP 138/82; PULSE 69; RESP 14; TEMP 97.5; O2SAT 99
[2024-07-25 07:00] VITALS: O2SAT 99
[2024-07-25 07:37] LABS: ALANINE AMINOTRANSFERASE 47 U/L (12-78); ALBUMIN 2.8 G/DL (3.4-5.0); ALBUMIN/GLOBULIN RATIO 0.9 (1.1-1.5); ALKALINE PHOSPHATASE 94 IU/L (46-116); ANION GAP 7 (8-16); ASPARTATE AMINO TRANSFERASE 37 U/L (10-37); BLOOD UREA NITROGEN 32 MG/DL (7-18); BUN/CREATININE RATIO 21.1 (10.0-20.0); CALCIUM 8.5 MG/DL (8.5-10.1); CHLORIDE 105 MMOL/L (99-107); CREATININE 1.52 MG/DL (0.60-1.10); GLUCOSE 102 MG/DL (70-104); MAGNESIUM 2.2 MG/DL (1.5-2.4); POTASSIUM 3.9 MMOL/L (3.5-5.1); SODIUM 138 MMOL/L (135-145); TOTAL CARBON DIOXIDE 26.3 MMOL/L (24-32); eCRCL 52 ML/MIN; eGFR 44 ML/MIN
--- NOTE | 2024-07-25 07:57 | DISCHARGE SUMMARY ---
Discharge Summary Providers to CC ~ Discharge Summary Admission Diagnosis: LAD dissection with severe decrease SBP, calcified RCA dz, s/p IABP Hospital Course DATE OF ADMISSION: 07/15/2024 DATE OF DISCHARGE: 07/25/2024 Discharge Diagnosis\Comment: s/p emergency CABG Operations\Procedures: Emergency CABG x 2 with BRAGG to (dissected) mid LAD (1.5 mm internal lumen diameter) because of dissection) and SV to proximal PDA (1.5 mm) Left atrial appendage exclusion with 45 mm AtriCure AtriClip Flex V Endovein left thigh sv harvest Surgeon: Nilesh Lake MD Credit Card Specialist Ghassan DELGADO (assisted with every aspect of case, including conduit preparation, cannulation, exposure, and assisting during all anastomoses, wound closure). Anesthesiologist: Fabian Islas Type of Anesthesia: General Findings: Dissection extending distally, involving left anterior descending at anastomosis, which involved local repair with reapproximation of artery layers RCA severely calcified. Had to track PDA beneath epicardial fat to locate useable site Severe LA and RA enlargement, 3.8 cm ascending aortic aneurysm EF at beginning of case on IABP = 50% with severe anterior wall and septal hypokinesis EF post bypass 60% with resolution of hypokinesis and decrease in mitral regurgitation to trace Left atrial appendage excluded Consultants: none Complications: none Condition on DC: Stable Discharge Summary: 79 y/o male underwent outpatient cardiac catheterization on 07/15/2024, during PCI of an ultra high-grade proximal left anterior descending coronary artery stenosis, a dissection of the left anterior descending developed with abrupt cessation of all flow beginning at the mid left anterior descending in a vessel that extended beyond the apex and which had a reasonable preprocedure vessel caliber. There was still a guidewire in the left anterior descending system despite the absence of any flow. In addition, the patient had a severely calcified right coronary system with serial moderate to severe stenoses as well as an aneurysm in the mid segment. The calcification extended throughout the distal right coronary system, including the atrial ventricular groove segment beyond the origin of the posterior descending artery, making the posterior descending artery the only feasible target vessel. an IABP was placed and CV surgery was consulted for emergency surgery. The patient was taken to the operating room where he underwent the above listed procedure. Afterwards he stabilized through the night. On postop day 1. He remained on the ventilator. He was on some Venkatesh-Synephrine for blood pressure support balloon pump was still at one-to-one ratio. His cardiac index was around 1.8. On 2nd postoperative day the balloon pump was weaned down and finally removed. He was weaned off all pressor support. Cardiac index was 2.2 it was noted that he had resumed his chronic rhythm of atrial fibrillation. He did have some renal insufficiency with creatinine up to 1.74. [place] [address]. Chest tubes were removed on postoperative day 3. And his wires were cut at the skin level. He was making good progress and was thus transferred up to the PCU. From this point onward he made slow but steady progress. He underwent diuresis over the next several days. He had an echocardiogram on postoperative day 5. Which revealed ejection fraction of 50% with no pericardial effusions noted. We ultimately resumed his Xarelto for his atrial fibrillation. He was also placed on Plavix. We are withholding aspirin due to this. My postoperative day 8. He was essentially ready for transfer to rehab. We are awaiting approval. We did down titrate some of his blood pressure medicines from this point. During the night of postop day 9. The patient self ambulated into the bathroom and lost his balance. He was found with a slight scrape to the back of his head. He did not lose consciousness. CT scan of the head showed no bleeds or fractures. By 5:15 a.m. 25 which was postoperative day 10. We had received approval for transfer to rehab. I evaluated this patient thoroughly. His neurologic status is at baseline. Nursing staff reports that the patient had an unwitnessed falling event in the bathroom. I talked to Mr. Acevedo about the event. He is somewhat difficult to understand due to his chronic aphasia from his previous CVA. But I am satisfied that he only lost his balance. He does have a bandage on his head which has some dried blood on it but the scalp seems only to be scraped with very mild tissue swelling. I do not feel as though he has any significant injury from his fall. Otherwise his condition is unchanged from before. He remains in AFib, his incisions are healing nicely showing no signs of infection. He has minimal peripheral edema. Lungs are clear. He does not require oxygen. Overall he is felt to be stable for transfer. Patient was seen and evaluated by me a second time and by Dr. Armendariz simutaneously. In light of his fall and given that his appendage is clipped we will discontinue his Xarelto now. Meds on discharge Tramadol 50 mg Q 8 hours p.r.n. Lopressor 37.5 mg b.i.d. -Y-w-c-e-l-t-o- -2-0- -m-g- -d-a-i-l-y- Ferrous sulfate 325 mg q.48h Plavix 75 mg daily Atorvastatin 80 mg daily Protonix 40 mg daily Levothyroxine 112 mcg daily *Problems/Diagnosis: (1) S/P CABG x 2 (2) Chronic atrial fibrillation (3) Hypertension (4) Hypothyroidism (5) COPD (chronic obstructive pulmonary disease) (6) CVA, old, aphasia (7) Anemia due to acute blood loss Total Time Spent on D/C: > 30 Minutes MELANIE CRUZ July 25, 2024 07:30
[2024-07-25 08:03] VITALS: PULSE 101; PULSE 103; RESP 16; RESP 18; O2SAT 98
[2024-07-25 08:09] VITALS: BP_SYST 135; PULSE 106
[2024-07-25 08:29] VITALS: RESP 13; O2SAT 99
== END 2024-07-25 11:39 | DRG 231 ==
LOC: SSTAY O 11:33 → CICU 2S 15:04 → PCU 3S 07-18 17:01
PROVIDERS: ADMIT Thoracic Surgery (Cardiothoracic Vascular Surgery); ATTEND Student in an Organized Health Care Education/Training Program
PROC: 021009W Bypass Coronary Artery, One Artery from Aorta with Autologous Venous Tissue, Open Approach (ICD-10-PCS; 2024-07-15)
PROC: B2111ZZ Fluoroscopy of Multiple Coronary Arteries using Low Osmolar Contrast (ICD-10-PCS; 2024-07-15)
PROC: 5A02210 Assistance with Cardiac Output using Balloon Pump, Continuous (ICD-10-PCS; 2024-07-15)
PROC: 02100Z9 Bypass Coronary Artery, One Artery from Left Internal Mammary, Open Approach (ICD-10-PCS; 2024-07-15)
PROC: 06BQ4ZZ Excision of Left Saphenous Vein, Percutaneous Endoscopic Approach (ICD-10-PCS; 2024-07-15)
PROC: B41F1ZZ Fluoroscopy of Right Lower Extremity Arteries using Low Osmolar Contrast (ICD-10-PCS; 2024-07-15)
PROC: 02L70CK Occlusion of Left Atrial Appendage with Extraluminal Device, Open Approach (ICD-10-PCS; 2024-07-15)
PROC: 5A1221Z Performance of Cardiac Output, Continuous (ICD-10-PCS; 2024-07-15)
PROC: B24BZZ4 Ultrasonography of Heart with Aorta, Transesophageal (ICD-10-PCS; 2024-07-15)
PROC: 027034Z Dilation of Coronary Artery, One Artery with Drug-eluting Intraluminal Device, Percutaneous Approach (ICD-10-PCS; 2024-07-15)
PROC: 4A023N7 Measurement of Cardiac Sampling and Pressure, Left Heart, Percutaneous Approach (ICD-10-PCS; principal; 2024-07-15 15:37)
DX: I97.190 Other postprocedural cardiac functional disturbances following cardiac surgery (principal); I21.4 Non-ST elevation (NSTEMI) myocardial infarction; I25.42 Coronary artery dissection; N17.0 Acute kidney failure with tubular necrosis; R57.0 Cardiogenic shock; I50.30 Unspecified diastolic (congestive) heart failure; I69.351 Hemiplegia and hemiparesis following cerebral infarction affecting right dominant side; I48.20 Chronic atrial fibrillation, unspecified; I13.0 Hypertensive heart and chronic kidney disease with heart failure and stage 1 through stage 4 chronic kidney disease, or unspecified chronic kidney disease; D62 Acute posthemorrhagic anemia; Y83.8 Other surgical procedures as the cause of abnormal reaction of the patient, or of later complication, without mention of misadventure at the time of the procedure; Y82.8 Other medical devices associated with adverse incidents; I25.10 Atherosclerotic heart disease of native coronary artery without angina pectoris; I71.21 Aneurysm of the ascending aorta, without rupture; E78.5 Hyperlipidemia, unspecified; E03.9 Hypothyroidism, unspecified; J44.9 Chronic obstructive pulmonary disease, unspecified; N18.31 Chronic kidney disease, stage 3a; D69.6 Thrombocytopenia, unspecified; I25.41 Coronary artery aneurysm; I34.0 Nonrheumatic mitral (valve) insufficiency; I69.320 Aphasia following cerebral infarction; Y92.89 Other specified places as the place of occurrence of the external cause
CPT/HCPCS: 33967; 93308; 93312; 93325; 93458; C9600; 36415; 36600; 70450; 71045; 73610; 80048; 80053; 80061; 82330; 82435; 82803; 82947; 82948; 83036; 83695; 83735; 84100; 84132; 84295; 85007; 85018; 85025; 85347; 85384; 85610; 85730; 86885; 86900; 86901; 86920; 87070; 87081; 93005; 94002; 94003; 94640; 94664; 94668; 94760; 97110; 97116; 97161; 97530; 99152; 99153; A4314; A4615; A4618; A6213; A6253; A6258; A6446; A6449; A7000; A7015; A7048; C1725; C1751; C1769; C1874; C1894; G0378; J0360; J0690; J0696; J1250; J1644; J1815; J1938; J1940; J2003; J2150; J2250; J2270; J2371; J2440; J2704; J2720; J2795; J2919; J3010; J3370; J3480; J3490; J7030; J7040; J7050; J7120; P9045; P9047; Q0163; Q9967

== ENCOUNTER 2024-08-21 09:11 | Inpatient (IN) | payer OTHER, MEDICARE ==
[~2024-08-21] VITALS: Ht 180.3 cm; Wt 88.5 kg
[~2024-08-21 09:11] MED LIST changes: +ALBU8HFA INH; +ATOR80TA PO; +CARV3.12 PO; +CHOL20004 PO; +CLOB30CR11 TOP; +FURO-150 PO; +LEVO112T52 PO; +LOSA-418 PO; +NEO/5DRO3 EACHEYE; +NITR0.4T51 SL; +RIVA20TA PO; +SILD100T PO; +SPIR25TA5 PO; +TIOT18CA3 INH; -potassium Cl 2 mEq/ml inj IV ONE
--- NOTE | 2024-08-21 09:44 | ELECTROCARDIOGRAPH REPORT ---
[facility] Test Date: 2024-08-21 Test Time: 09:40:00 Pat Name: MICHELLE HASSAN Department: [facility] Patient ID: [facility]-[id number] Room: Gender: M Disease Case Manager: : 1945 Requested By: XENA MICHELE Order Number: [id number] Reading MD: Measurements Intervals [place] Rate: 81 P: 0 LA: 0 QRS: 78 QRSD: 89 T: 57 QT: 368 QTc: 428 Interpretive Statements Atrial fibrillation Anterior infarct, age indeterminate Baseline wander in lead(s) II,III,aVR,aVL,aVF Please click the below link to view image of tracing.
[2024-08-21 10:03] LABS: BASOPHILS # (AUTO) 0.1 X10'3 (0-0.2); BASOPHILS % (AUTO) 1.3 % (0-1); EOSINOPHILS # (AUTO) 0.5 X10'3 (0-0.9); EOSINOPHILS % (AUTO) 8.2 % (0-6); HEMATOCRIT 34.4 % (42.0-52.0); HEMOGLOBIN 11.7 g/dl (14.0-17.9); LYMPHOCYTES # (AUTO) 1.8 X10'3 (1.1-4.8); MEAN CORPUSCULAR HEMOGLOBIN 33.6 PG (27.0-31.0); MEAN CORPUSCULAR HGB CONC 33.9 g/dL (33.0-36.5); MEAN CORPUSCULAR VOLUME 99.1 FL (78-98); MONOCYTES # (AUTO) 0.7 X10'3 (0-0.9); MONOCYTES % (AUTO) 11.1 % (2-12); NEUTROPHILS # (AUTO) 3.4 X10'3 (1.8-7.7); NEUTROPHILS % (AUTO) 52.4 % (42-75); PLATELET COUNT 238 X10'3 (140-440); RED BLOOD COUNT 3.47 X10'6 (4.70-6.10); RED CELL DISTRIBUTION WIDTH 14.8 % (11.5-14.5); WHITE BLOOD COUNT 6.6 X10'3 (4.5-11.0)
--- NOTE | 2024-08-21 10:03 | RADIOLOGY REPORT ---
EXAM: DI CHEST,SINGLE VIEW Indication: CP Technique: Single frontal view of the chest was obtained Comparison: DI CHEST,SINGLE VIEW on DOS: 07/21/24, DI CHEST,SINGLE VIEW on DOS: 07/20/24, DI CHEST,SING LE VIEW on DOS: 07/19/24, DI CHEST,SINGLE VIEW on DOS: 07/18/24, DI CHEST,SINGLE VIEW on DOS: 07/17/24 FINDINGS: Lines and Tubes: None Lungs: Left retrocardiac opacity. Pleura: Small left pleural effusion No pneumothorax. Cardiomediastinal contours: Cardiomegaly. Valvular device projects over the mediastinum. Bones: No acute osseous abnormality. IMPRESSION: Cardiomegaly with small left pleural effusion and left retrocardiac opacity.
[2024-08-21 10:31] LABS: ALBUMIN 3.5 G/DL (3.4-5.0); ANION GAP 10 (8-16); BLOOD UREA NITROGEN 14 MG/DL (7-18); BUN/CREATININE RATIO 10.4 (10.0-20.0); CALCIUM 9.2 MG/DL (8.5-10.1); CHLORIDE 108 MMOL/L (99-107); CREATININE 1.34 MG/DL (0.60-1.10); GLUCOSE 102 MG/DL (70-104); PRO BRAIN NATRIURETIC PEPTIDE 3608 PG/ML (0-450); SODIUM 143 MMOL/L (135-145); TOTAL CARBON DIOXIDE 24.9 MMOL/L (24-32); eCRCL 48 ML/MIN; eGFR 51 ML/MIN
--- NOTE | 2024-08-21 10:32 | RADIOLOGY REPORT ---
EXAM: DI FOOT, COMPLETE (3VW MIN) HISTORY: foot pain COMPARISON: None TECHNIQUE: DI FOOT, COMPLETE (3VW MIN) FINDINGS: BONES: No acute fracture or dislocation is seen. The ankle mortise and syndesmotic spaces are intac t. Talar dome is intact. Subtalar joints are preserved. No radiographic evidence for tarsal coalit ion. SOFT TISSUES: Vascular calcifications noted. IMPRESSION: 1. No acute osseous abnormality of the ankle.
--- NOTE | 2024-08-21 13:21 | Physician Documentation ---
History of Present Illness ~ Chief Complaint: Shortness of Breath Stated Complaint: MULTIPLE MEDICAL COMPLAINTS Time Seen by MD: 13:50 Source: patient, family HPI 79-year-old male history of COPD, atrial fibrillation on Xarelto, CAD status post CABG 07/18/2024, hyperlipidemia, hypothyroidism HFrEF EF 50% 07/20/2024 presenting today for dyspnea on exertion. He reports chronic shortness of breath which has been ongoing since be even before his CABG. He has no chest pain mild shortness of breath at rest. He is barely able to walk without becoming significantly dyspneic. He denies any cough. He does report intermittent lower extremity edema Medication Reconciliation Allergies: Coded Allergies: No Known Allergies (Unverified , 08/21/24) Scheduled Atorvastatin Calcium (Lipitor), 1 TAB PO DAILY, (Reported) Carvedilol (Coreg), 2 TAB PO DAILY, (Reported) Carvedilol (Coreg), 1 TAB PO HS, (Reported) Cholecalciferol (Vitamin D), 1 TAB PO DAILY, (Reported) Clobetasol Propionate (Clobetasol Propionate), 1 APPLIC TOP Q12H, (Reported) Furosemide* (Lasix*), 1 TAB PO DAILY, (Reported) Levothyroxine Sodium (Synthroid), 1 TAB PO DAILY, (Reported) Losartan Potassium (Cozaar), 1 TAB PO DAILY, (Reported) Venkatesh/Polymyx B Sulf/Dexameth (Maxitrol Eye Drops), 1 DROP EACHEYE Q6H, (Reported) Rivaroxaban (Xarelto), 1 TAB PO DAILY, (Reported) Spironolactone (Spironolactone), 1 TAB PO DAILY, (Reported) Tiotropium [place] (Spiriva), 1 CAP INH DAILY, (Reported) Scheduled PRN Nitroglycerin SL* (Nitrostat SL*), 1 TAB SL Q5MIN PRN for Chest pain Q5min PRNx3-call MD, (Reported) Sildenafil Citrate* (Viagra*), 1 TAB PO QDAY PRN PRN for erectile dysfunction, ( Reported) albuterol inhaler (Pro-Air Inhaler), 2 PUFFS INH Q4HPRN PRN for wheezing, (Reported) Review of Systems All Other Systems at this time: Reviewed and Negative Constitutional: Denies: fever Respiratory: Denies: shortness of breath Physical Exam Vital Signs: RN Vital Signs have been reviewed: Yes, Temperature: 98.4, Source: Temporal, Heart Rate: 83, Respiratory Rate: 18, BP: 177/95, Pulse Oximetry: 98, Weight: 88.500 Physical Exam Well-appearing no distress resting comfortably in bed No JVD Moist mucous membranes Pulmonary clear to auscultation bilaterally Cardiac no murmur Abdomen is soft nontender Lower extremity 1+ pitting edema bilaterally Awake alert oriented Progress Progress Note Consulted hospitalist who agrees with management plan and graciously accept for admission Results/Orders Results/Orders Orders - XENA MICHELE MD Chest,Single View (08/21/24 09:38) Monitor (08/21/24 09:38) Saline Lock (08/21/24 09:38) Oxygen (08/21/24 09:38) * Rt Notification Q1H (08/21/24 14:25) Page Hospitalist (08/21/24 15:28) Fill Out Med Reconciliation (08/21/24 15:28) Completed Orders - XENA MICHELE MD Chest,Single View (08/21/24 09:38) Cbc/Diff (08/21/24 09:38) BMP (08/21/24 09:38) PBNP (08/21/24 09:38) Electrocardiogram (08/21/24 09:38) Hs Troponin I W Calculations (08/21/24 09:38) Hs Troponin I W Calculations (08/21/24 11:38) Hs Troponin I W Calculations (08/21/24 12:38) Furosemide 40mg Inj (Lasix Inj) (08/21/24 14:25) Methylprednisolone Sod Succ (Solumedrol (08/21/24 14:25) Albuterol 2.5mg/3ml Nebule (Proventil 2. (08/21/24 14:25) Medications Received in ER Medications (Trade) Dose Ordered Sig/Trevor Route PRN Reason Start Time Stop Time Status Last Admin Dose Admin (Lasix inj) 40 mg ONCE ONCE IV 08/21/24 14:25 08/21/24 14:28 DC 08/21/24 15:40 40 MG (SoluMEDROL 125mg inj) 125 mg ONCE ONCE IV 08/21/24 14:25 08/21/24 14:28 DC 08/21/24 15:39 125 MG (Proventil 2.5 MG/3ML nebule) 5 mg ONCE ONCE NEB 08/21/24 14:25 08/21/24 14:53 DC 08/21/24 16:11 5 MG Vital Signs 08/21/24 08/21/24 08/21/24 09:36 14:01 14:05 Temp 98.4 Pulse 83 89 Resp 18 14 17 B/P (MAP) 177/95 157/88 (111) Pulse Ox 98 98 Laboratory Tests Test 08/21/24 09:47 08/21/24 11:44 08/21/24 12:53 White Blood Count 6.6 Red Blood Count 3.47 L Hemoglobin 11.7 L Hematocrit 34.4 L Mean Corpuscular Volume 99.1 H Mean Corpuscular Hemoglobin 33.6 H Mean Corpuscular Hemoglobin Concent 33.9 Red Cell Distribution Width 14.8 H Platelet Count 238 Mean Platelet Volume 9.0 Neutrophils (%) (Auto) 52.4 Lymphocytes (%) (Auto) 27.0 Monocytes (%) (Auto) 11.1 Eosinophils (%) (Auto) 8.2 H Basophils (%) (Auto) 1.3 H Neutrophils # (Auto) 3.4 Lymphocytes # (Auto) 1.8 Monocytes # (Auto) 0.7 Eosinophils # (Auto) 0.5 Basophils # (Auto) 0.1 CBC Comment Sodium Level 143 Potassium Level 4.0 Chloride Level 108 H Carbon Dioxide Level 24.9 Anion Gap 10 Blood Urea Nitrogen 14 Creatinine 1.34 H Estimated GFR/1.73 m2 51 BUN/Creatinine Ratio 10.4 Glucose Level 102 Calcium Level 9.2 Troponin I High Sensitivity 16 18 18 Pro-B-Type Natriuretic Peptide 3608 H Albumin 3.5 Chemistry Comments Troponin I High Sens Percent Delta 12 0 Troponin I Hi Sens Absolute Change 2 0 EKG/XRAY/CT/US/VASC/MRI EKG : Additional Comment EKG independently interpreted by myself time 9:40 a.m. indication symptomatic patient atrial fibrillation rate 81 normal axis normal intervals anterior septal Q-waves poor R-wave progression no ST abnormality Chest X-Ray : Additional Comments Chest x-ray independently interpreted shows no pneumothorax small left pleural effusion positive cardiomegaly Medical Decision Making Additional info obtained from: old records Findings Echocardiogram July 20, 2024 LV mildly reduced function EF 50% Periprocedural proximal mid left anterior descending coronary artery dissection with complete left anterior descending occlusion cardiogenic shock CVA with right hemiparesis CKD 3 Operative report Additional Infomation CHF COPD pneumonia pulmonary embolism Departure Disposition: ADMITTED INPATIENT Admitted to Inpatient Unit: to hospitalist Impression: Primary Impression: Acute exacerbation of chronic obstructive airways disease Additional Impression: Acute on chronic diastolic heart failure Additional Impression Text Patient presenting for shortness of breath found to be in CHF exacerbation potentially COPD exacerbation as well. He will be admitted for further management since he has a recent CABG patient Referrals: NO PRIMARY CARE PROVIDER (PCP) Signature Scribe Signature: na Attestation: ISHA Miramontes Aug 21, 2024 13:21 XENA MICHELE MD Aug 21, 2024 13:32
[2024-08-21] MEDS: methylPREDNISolone sod succ 125mg/2ml vial IV ONE (15:39)
[2024-08-21] MEDS: furosemide 40mg/4ml inj IV ONE (15:40)
[2024-08-21] MEDS ORDERED: morphine 2 MG/ML inj. syringe IV PRN ×2 (16:00)
[2024-08-21] MEDS ORDERED: magnesium sulf-water 4G/100mL 100 ML IV PRN (16:00)
[2024-08-21] MEDS ORDERED: acetaminophen 325mg tablet PO PRN (16:00)
[2024-08-21] MEDS ORDERED: potassium Cl 20 mEq SR tablet PO PRN ×2 (16:00)
[2024-08-21] MEDS ORDERED: magnesium hydroxide 30ml (MOM) UD suspension PO PRN (16:00)
[2024-08-21] MEDS ORDERED: magnesium sulf-water 2g/50mL 50 ML IV PRN (16:00)
[2024-08-21] MEDS ORDERED: potassium Cl 40MEQ/1/2NS 520ml 520 ML IV PRN (16:00)
[2024-08-21] MEDS ORDERED: ondansetron/PF 4mg/2ml inj IV PRN (16:00)
[2024-08-21] MEDS ORDERED: HYDROcodone/acetaminophen 10/325mg tab PO PRN (16:00)
[2024-08-21] MEDS ORDERED: magnesium Cl slow-release 64mg tablet PO PRN (16:00)
[2024-08-21] MEDS ORDERED: mag hydrox/Alum hydrox/simeth 30ml oral suspension PO PRN (16:00)
[2024-08-21] MEDS ORDERED: HYDROcodone/acetaminophen 5mg/325mg tablet PO PRN (16:00)
[2024-08-21] MEDS: albuterol 2.5 MG/3 ML nebule NEB ONE (16:11)
[2024-08-21 16:15] VITALS: PULSE 91; RESP 18; O2SAT 98
[2024-08-21 16:22] VITALS: PULSE 87; RESP 18; O2SAT 100
--- NOTE | 2024-08-21 17:50 | CARDIOLOGY REPORT ---
APPROVED REPORT EXAM: Comprehensive 2D, Doppler, and color-flow Echocardiogram. Patient Location: ER 1 Blood Pressure: 151/94 mmHg Heart Rate: 83-136 bpm Rhythm: Atrial Fibrillation Indications CONGESTIVE HEART FAILIRE COPD ATRIAL FIBRILLATION CABG x 2 (07-18-24) Protocol Manager: Rudolph Rocha MD Previous Echo: [facility] 07-20-24 EF 50%, LAE, JENNIFER 2D Dimensions RVDd 3.2 cm IVSd 0.8 (0.7-1.1cm) LVDd 4.7 cm PWd 0.9 (0.7-1.1cm) IVSs 1.1 (0.8-1.2cm) LVDs 3.4 (2.5-4.0cm) PWs 1.1 (0.8-1.2cm) LVOT Diameter 1.97 (1.8-2.4cm) LVEF(%) 56.0 (>50%) IVC 105.00 mm FS (%) 29.2 % SV 58.5 ml CO 5.9 L/min M-Mode Dimensions Left Atrium(MM) 4.20 (2.5-4.0cm) Aortic Root 2.28 (2.2-3.7cm) MV EPSS 1.0 (<0.5cm) Aortic Valve AoV Peak Socrates. 188.9 cm/s AoV VTI 38.3 cm AO Peak GR. 14.3 mmHg AO Mean GR. 7 mmHg LVOT VTI 26.73 cm LVOT Peak Socrates. 128.1 cm/s ERNST(VTI)/BSA 2.12 cm2/m2 ERNST (VTI) 2.12 cm2 Mitral Valve MV Peak Gr. 9 mmHg MV PHT 56 ms MVA (PHT) 3.93 cm2 MV BIzb911.9 cm/s Tricuspid Valve TR P. Velocity 201 cm/s RAP ESTIMATE 10 mmHg TR Peak Gr. 16 mmHg RVSP 26 mmHg LEFT VENTRICLE Normal LV size and wall thickness. Overall systolic function is mildly reduced. LVEF is approximately 50%. RIGHT VENTRICLE RV is normal size and function. ATRIA Left atrium is mildly dilated. Right atrium is mildly dilated. AORTIC VALVE AV is probably trileaflet and moderately sclerotic without stenosis. No insufficiency. MITRAL VALVE Mitral valve leaflets are mildly thickened with mild MV annular calcification. No stenosis. Mild regu rgitation. TRICUSPID VALVE TV appears structurally normal with trace regurgitation. PULMONIC VALVE Pulmonic valve is grossly normal in structure with physiologic insufficiency. GREAT VESSELS The aortic root is normal in size. The IVC is normal in size and collapses >50% with inspiration. PERICARDIUM Normal pericardium. No effusion. Other Information Study Quality: Fair due to body habitus Conclusion Normal LV size and wall thickness. Overall systolic function is mildly reduced. LVEF is approximately 50%. RV is normal size and function. Left atrium is mildly dilated. Right atrium is mildly dilated. AV is probably trileaflet and moderately sclerotic without stenosis. No insufficiency. Mitral valve leaflets are mildly thickened with mild MV annular calcification. No stenosis. Mild reg urgitation. TV appears structurally normal with trace regurgitation. Normal pericardium. No effusion.
--- NOTE | 2024-08-21 18:18 | HISTORY AND PHYSICAL-Residence ---
History & Physical Providers to CC Resident Creating Document: SACHIN GIRARD, RES ~ History of Present Illness Primary Medical Doctor: [facility] Reason for Admit\Complaint: Shortness of breath History of Present Illness PCP: [facility]. [employer] Supervisor: Dr. Rocha. 79 years old male patient with past medical history of hypertension, COPD, stroke, CAD s/p CABG came to the hospital with chief complaint of shortness of breaths. The patient states that he has been experiencing shortness of breath on and off for approximately one year. He endorses that his shortness of breath started getting worse during the last three months, but reports that after his CABG on 07/15/2024 his shortness of breath was getting even worse. The patient currently denies any cough, he states that he has inhalers at home which he was using with more frequency but was not enough to control his symptoms. The patient also reports that he has been having shortness of breaths when he lays down flat and improves when he stands up. He denies any fever sensation, chills, reports mild chest pain 1/10 in intensity after the surgery described as a sharp type without radiation. Currently denies any urinary or intestinal symptoms. Allergies: Coded Allergies: No Known Allergies (Unverified , 08/21/24) Home Medications Home Medications Active Reported Spiriva (Tiotropium [place]) 18 Mcg Cap.w.dev 1 Cap INH DAILY 30 Days Spironolactone 25 Mg Tablet 1 Tab PO DAILY 30 Days Viagra* (Sildenafil Citrate) 100 Mg Tablet 1 Tab PO QDAY PRN PRN 1 hour before sexual activity Xarelto (Rivaroxaban) 20 Mg Tablet 1 Tab PO DAILY 30 Days with food Nitrostat SL* (Nitroglycerin) 0.4 Mg Tablet 1 Tab SL Q5MIN PRN Cozaar (Losartan Potassium) 100 Mg Tablet 1 Tab PO DAILY 30 Days Synthroid (Levothyroxine Sodium) 112 Mcg Tablet 1 Tab PO DAILY 30 Days Lasix* (Furosemide) 20 Mg Tablet 1 Tab PO DAILY 30 Days Clobetasol Propionate 0.05 % Cream..g. 1 Applic TOP Q12H 30 Days apply to affected area(s) Maxitrol Eye Drops (Venkatesh/Polymyx B Sulf/Dexameth) 3.5 Mg/Ml-10,000 Unit/Ml-0.1 % Drops.susp 1 Drop EACHEYE Q6H 7 Days Vitamin D (Cholecalciferol) 2,000 Unit Tablet 1 Tab PO DAILY 30 Days Coreg (Carvedilol) 3.125 Mg Tablet 1 Tab PO HS 30 Days Coreg (Carvedilol) 3.125 Mg Tablet 2 Tab PO DAILY 30 Days Lipitor (Atorvastatin Calcium) 80 Mg Tablet 1 Tab PO DAILY 30 Days Pro-Air Inhaler (Albuterol) 8.5 Gm Inhaler 2 Puffs INH Q4HPRN PRN 30 Days Past Medical History Past Medical History Hypertension. COPD. Stroke. CAD s/p CABG. Past Surgical History Surgical History Comment Tonsillectomy. CABG on 07/15/2024. Past Social History Smoking: Quit greater than 1 year (As per patient he quit smoking 17 years ago, he used to smoke two packs a day for couple of years.) Alcohol Use: Occasionally (He endorses drinking three beers per week.) Drug Use: None Lives with: Other (He lives with his girlfriend.) Lives In: Home Occupation: retired () ROS All Other Systems: Reviewed and Negative Constitutional: Denies: fever Respiratory: Denies: shortness of breath Exam Vitals: Vital Signs Date Time Temp Pulse Resp B/P (MAP) Pulse Ox O2 Delivery O2 Flow Rate FiO2 08/21/24 17:31 90 20 157/85 (109) 96 0 08/21/24 16:22 Room Air* 21 08/21/24 09:36 98.4 Physical exam: General: Well alert, well oriented, not confused, not agitated, not in acute distress, well cooperated during the physical. HEENT: Conjunctive are pink, sclerae clear, no icterus, pupil is equal in both sides, reactive to light, no ear discharge, no pharyngeal erythema or an edema. Neck: Supple, no JVD, no lymphadenopathy and thyromegaly. Chest: Presence of bilateral wheezing. Diminished air entry in the left base of the lung. Presence of scar from previous surgery without signs of infection or inflammation. Cardiovascular: S1-S2 regular sinus rhythm and, regular rate, no gallops, no rubs, no murmurs Abdomen: No visible peristalsis, Bowel sounds present on auscultation, soft, nontender, no guarding, no rigidity Extremities: No obvious deformities, 1+ pedal edema, capillary refill intact, peripheral pulsations are intact on both sides Central Nervous System: No focal neurological deficits, no motor or sensory weakness in all 4 extremities, could move all 4 extremities, 2+ deep tendon reflexes, negative Babinski. Musculoskeletal: No joint swelling, deformities, inflammations, and no scoliosis and back tenderness Skin: Warm and dry. Diagnostic Data Last Recorded Lab Results: 08/21/24 0947 08/21/24 0947 Advance Care Planning Advanced Care plannin - 30 Minutes (I spent a total of 17 minutes on reviewing various resuscitative measures/ACP with the patient at the time of admission. The patient has decided on a DNR code status.) Additional Plan Assessment and plan: 79-year-old male patient came to the hospital with chief complaint of shortness of breath. Acute exacerbation of diastolic congestive heart failure with preserved ejection fraction of 50%: The patient came to the hospital with shortness of breath. 1+ pedal edema evidenced on physical exam. Echocardiogram: Normal LV size and wall thickness. Overall systolic function is mildly reduced. LVEF is approximately 50%. RV is normal size and function. Left atrium is mildly dilated. Right atrium is mildly dilated. AV is probably trileaflet and moderately sclerotic without stenosis. No insufficiency. Mitral valve leaflets are mildly thickened with mild MV annular calcification. No stenosis. Mild regurgitation. TV appears structurally normal with trace regurgitation. Chest x-ray: Cardiomegaly with small left pleural effusion and left retrocardiac opacity. ProBNP 3608. Lasix 40 mg IV b.i.d. Acute exacerbation of COPD: Left pleural effusion: The patient came to the hospital with chief complaint of shortness of breath. Chest x-ray: Cardiomegaly with small left pleural effusion and left retrocardiac opacity. Follow-up CT scan of the chest. The patient may require thoracentesis. The patient received one dose of methylprednisolone 125 mg. Methylprednisolone 30 mg IV b.i.d.. Ceftriaxone 1 g IV daily. Day 1. Azithromycin 500 mg daily. Day 1. Culturelle 10404 mmu b.i.d. DuoNeb q.4h PRN. DuoNeb q.6h scheduled. Incentive spirometry every 2 hours while awake. CKD stage IIIa: Creatinine 1.34, GFR 51. Baseline creatinine: 1.23. We will not start on IV fluids due to volume overload. Hypertension: Current blood pressure 157/85. We will continue his home medication losartan 100 mg daily. Carvedilol b.i.d. Hypothyroidism: Follow-up TSH. We will continue levothyroxine after med reconciliation. AFib rate controlled: EKG showing atrial fibrillation, heart rate 81, normal axis deviation. We will continue Xarelto after med reconciliation. Code status: DNR DVT prophylaxis: The patient is currently on SCDs on Xarelto. Analgesia/sedation: Morphine and [place]. Line/tube: PIV GI prophylaxis: Protonix Nutrition: Heart healthy diet PT: Ordered Prognosis: Guarded Disposition: The patient will be admitted to PCU with telemetry. Sachin Bnaks Internal Medicine Resident [facility] Date of Service: Aug 21, 2024 Billing Provider: SEN LLAMAS MD Common Visit Codes: 88679-[id number] INP/OBS CARE (HIGH) Secondary Visit Codes: 54734-[id number] CARE PLAN 30 MINUTES SACHIN GIRARD, RES Aug 21, 2024 18:18 SEN LLAMAS MD Aug 30, 2024 07:28
[2024-08-21] MEDS ORDERED: ipratropium/albuterol 3ml nebule NEB PRN (18:20)
[2024-08-21 18:55] VITALS: PULSE 91; RESP 20; O2SAT 96
[2024-08-21] MEDS: ipratropium/albuterol 3ml nebule NEB SCH (18:55)
[2024-08-21 19:01] VITALS: PULSE 95; RESP 16
[2024-08-21] MEDS: K and/or MAG REPLACEMENT MC SCH (19:05)
[2024-08-21] MEDS: docusate sod 100mg capsule PO SCH (19:05)
[2024-08-21] MEDS: azithromycin 250mg tablet PO SCH (19:36)
[2024-08-21] MEDS: methylPREDNISolone sod succ/PF 40mg inj. IV SCH (19:36)
[2024-08-21] MEDS: lactobacillus rhamnosus 10,000 MMU CELLS/CAPSULE PO SCH (19:36)
[2024-08-21] MEDS: CefTRIAXone/D5W-Rocephin 1gm 50 ML IV SCH (19:36)
--- NOTE | 2024-08-21 20:09 | RADIOLOGY REPORT ---
EXAM: CT CT CHEST History: Left pleural effusion Comparison Study: None TECHNIQUE: Multidetector CT of the chest was performed. Imaging was performed without IV contrast. Ax ial, coronal, and sagittal multiplanar reformats were obtained from the axial data set by the technol ogjulienne. Radiation Dose : CTDI vol 17.44 mGy, DLP 661.74 mGy*cm. Findings: Lungs: Right apical paraseptal emphysema. Pleura: Moderate left pleural effusion with compressive atelectasis. Heart/Great vessels: No cardiomegaly or pericardial effusion. Severe coronary atherosclerosis versus stents. Left atrial appendage clip. Mediastinum: Unremarkable Soft tissues/Bones: Unremarkable The partially visualized upper abdomen is within normal limits. Impression: 1. Moderate left pleural effusion with compressive atelectasis. 2. Right apical paraseptal emphysema.
[2024-08-21] MEDS ORDERED: LOP12.5T PO (21:37)
[2024-08-21] MEDS ORDERED: TRAM50TA2 PO (21:37)
[2024-08-21] MEDS ORDERED: ACET-1008 PO (21:37)
[2024-08-21] MEDS ORDERED: CLOP75TA34 PO (21:37)
[2024-08-21] MEDS ORDERED: LOSA-415 PO (21:37)
[2024-08-21] MEDS ORDERED: PANT-47 PO (21:37)
[2024-08-21] MEDS ORDERED: MONT-47 PO (21:37)
[2024-08-21 22:40] VITALS: BP 152/97; PULSE 90; RESP 18; RESP 19; TEMP 97.7; O2SAT 97
[2024-08-22] VITALS (15 sets, daily range): BP systolic 91–119; BP diastolic 50–66; PULSE 90–108; RESP 14–18; TEMP 97.2–97.8; O2SAT 90–99
[2024-08-22 06:38] LABS: BASOPHILS % (AUTO) 0.1 % (0-1); EOSINOPHILS % (AUTO) 0 % (0-6); HEMATOCRIT 32.5 % (42.0-52.0); HEMOGLOBIN 10.9 g/dl (14.0-17.9); MEAN CORPUSCULAR HGB CONC 33.5 g/dL (33.0-36.5); MEAN CORPUSCULAR VOLUME 98.5 FL (78-98); MEAN PLATELET VOLUME 9.3 FL (7.4-10.4); MONOCYTES # (AUTO) 0.1 X10'3 (0-0.9); MONOCYTES % (AUTO) 3.7 % (2-12); NEUTROPHILS # (AUTO) 2.8 X10'3 (1.8-7.7); NEUTROPHILS % (AUTO) 71.2 % (42-75); PLATELET COUNT 219 X10'3 (140-440); RED CELL DISTRIBUTION WIDTH 14.7 % (11.5-14.5); WHITE BLOOD COUNT 3.9 X10'3 (4.5-11.0)
[2024-08-22 07:07] LABS: ALANINE AMINOTRANSFERASE 20 U/L (12-78); ALBUMIN 3.2 G/DL (3.4-5.0); ALBUMIN/GLOBULIN RATIO 0.9 (1.1-1.5); ALKALINE PHOSPHATASE 132 IU/L (46-116); ANION GAP 15 (8-16); ASPARTATE AMINO TRANSFERASE 21 U/L (10-37); BILIRUBIN,TOTAL 0.4 MG/DL (0.1-1.0); BLOOD UREA NITROGEN 20 MG/DL (7-18); BUN/CREATININE RATIO 16.1 (10.0-20.0); CALCIUM 8.9 MG/DL (8.5-10.1); CHLORIDE 108 MMOL/L (99-107); CREATININE 1.24 MG/DL (0.60-1.10); GLUCOSE 157 MG/DL (70-104); MAGNESIUM 1.8 MG/DL (1.5-2.4); SODIUM 143 MMOL/L (135-145); THYROID STIMULATING HORMONE 0.09 ulU/ml (0.34-4.50); TOTAL CARBON DIOXIDE 19.7 MMOL/L (24-32); TOTAL PROTEIN 6.9 G/DL (6.4-8.2); eCRCL 51 ML/MIN; eGFR 56 ML/MIN
[2024-08-22] MEDS: furosemide 10 MG/1 ML 10ml inj IV SCH (08:19)
[2024-08-22] MEDS: losartan 25mg tablet PO SCH (12:57)
[2024-08-22] MEDS: pantoprazole 40mg Tablet.DR PO SCH (12:57)
[2024-08-22] MEDS: levoTHYROXINE 88mcg tablet PO SCH (12:58)
[2024-08-22] MEDS: neomycin/polymyxn B/dexameth ophth suspension 5ml EACHEYE SCH (14:10)
--- NOTE | 2024-08-22 15:53 | PROGRESS NOTE- Residence ---
Progress Note - Resident Providers to CC Resident Creating Document: SACHIN GIRARD, RES ~ Antibiotic Timeout Antibiotic Ordered?: Yes Subjective The patient has been evaluated at the bedside. The patient reports significant improvement of shortness of breath, eager to be discharged home. Objective Vital Signs Date Time Temp Pulse Resp B/P (MAP) Pulse Ox O2 Delivery O2 Flow Rate FiO2 08/22/24 12:57 85 08/22/24 11:29 97.3 15 118/58 (78) 95 08/22/24 10:40 Room Air 0.0 08/22/24 10:39 21 Physical exam: General: Well alert, well oriented, not confused, not agitated, not in acute distress, well cooperated during the physical. HEENT: Conjunctive are pink, sclerae clear, no icterus, pupil is equal in both sides, reactive to light, no ear discharge, no pharyngeal erythema or an edema. Neck: Supple, no JVD, no lymphadenopathy and thyromegaly. Chest: Diminished air entry in the left base of the lung. no pathological sounds, ronchus or wheezing. Presence of scar from previous surgery without signs of infection or inflammation. Cardiovascular: S1-S2 irregular rhythm and, regular rate, no gallops, no rubs, no murmurs Abdomen: No visible peristalsis, Bowel sounds present on auscultation, soft, nontender, no guarding, no rigidity Extremities: No obvious deformities, 1+ pedal edema, capillary refill intact, peripheral pulsations are intact on both sides Central Nervous System: No focal neurological deficits, no motor or sensory weakness in all 4 extremities, could move all 4 extremities, 2+ deep tendon reflexes, negative Babinski. Musculoskeletal: No joint swelling, deformities, inflammations, and no scoliosis and back tenderness Skin: Warm and dry. Result Diagram: 08/22/24 0551 08/22/2451 Assessment Assessment 79-year-old male patient came to the hospital with chief complaint of shortness of breath. Plan Plan Acute exacerbation of diastolic congestive heart failure with preserved ejection fraction of 50%: S/P CABG on 07/18/2024: Left pleural effusion: The patient came to the hospital with shortness of breath. 1+ pedal edema evidenced on physical exam. Echocardiogram: Normal LV size and wall thickness. Overall systolic function is mildly reduced. LVEF is approximately 50%. RV is normal size and function. Left atrium is mildly dilated. Right atrium is mildly dilated. AV is probably trileaflet and moderately sclerotic without stenosis. No insufficiency. Mitral valve leaflets are mildly thickened with mild MV annular calcification. No stenosis. Mild regurgitation. TV appears structurally normal with trace regurgitation. Chest x-ray: Cardiomegaly with small left pleural effusion and left retrocardiac opacity. CT scan of the chest: showing moderate left pleural effusion. Thoracentesis orered. Dr Obando evaluated the patient at the bed side who reports no enough fluid to be drained. ProBNP 3608. Lasix 40 mg IV b.i.d. Losartan 50 mg daily. Metorpolol 50 mg B.I.D. Clopidrogrel 75 mg daily. Jardiance 10 mg daily. Acute exacerbation of COPD: The patient came to the hospital with chief complaint of shortness of breath. The patient received one dose of methylprednisolone 125 mg. Methylprednisolone 30 mg IV b.i.d.. Ceftriaxone 1 g IV daily. Day 2. Azithromycin 500 mg daily. Day 2. to be stopped tomorrow. Culturelle 86823 mmu b.i.d. DuoNeb q.4h PRN. DuoNeb q.6h scheduled. Incentive spirometry every 2 hours while awake. CKD stage IIIa: Creatinine 1.34, GFR 51. Baseline creatinine: 1.23. We will not start on IV fluids due to volume overload. Hypertension: Current blood pressure 157/85. We will continue his home medication losartan 50 mg daily. Metoprolol 50 mg BID. Hypothyroidism: TSH 0.09 Decreasing dose of levothyroxine to 88 mcg daily. from 112 mcg daily. AFib rate controlled: EKG showing atrial fibrillation, heart rate 81, normal axis deviation. Currently on metoprolol 50 mg BID. Left atrial appendage excluded on CABG on 07/18/2024 discontinued Xarelto bye cardiothoracic surgeon. Code status: DNR DVT prophylaxis: The patient is currently on SCDs. Analgesia/sedation: Morphine and [place]. Line/tube: PIV GI prophylaxis: Protonix Nutrition: Heart healthy diet PT: Ordered Prognosis: Guarded Disposition: We sill continue medical management. Anticipated discharge tomorrow. Sachin Banks Internal Medicine Resident [facility] Date of Service: Aug 22, 2024 Billing Provider: SEN LLAMAS MD Common Visit Codes: [id number] INP/OBS CARE(HIGH) SACHIN GIRARD, RES Aug 22, 2024 15:53 SEN LLAMAS MD Aug 30, 2024 07:29
[2024-08-22] MEDS: metoprolol tartrate 50mg tablet PO SCH (20:31)
[2024-08-22] MEDS: metoprolol tartrate 1mg/ml inj IV SCH (20:34)
[2024-08-23] VITALS (7 sets, daily range): BP systolic 106–137; BP diastolic 66–79; PULSE 74–113; RESP 14–18; TEMP 97.1–97.6; O2SAT 93–98
--- NOTE | 2024-08-23 06:30 | RADIOLOGY REPORT ---
Left Chest Sonogram Clinical history: Left-sided pleural the patient Technique: Limited sonographic evaluation of the left chest was performed. Findings/Impression: There is a small pleural effusion. Thoracentesis therefore not performed.
[2024-08-23 07:39] LABS: BASOPHILS % (AUTO) 0 % (0-1); EOSINOPHILS % (AUTO) 0 % (0-6); HEMATOCRIT 33.3 % (42.0-52.0); HEMOGLOBIN 10.9 g/dl (14.0-17.9); LYMPHOCYTES # (AUTO) 1.5 X10'3 (1.1-4.8); LYMPHOCYTES % (AUTO) 11.3 % (21-51); MEAN CORPUSCULAR HEMOGLOBIN 33.2 PG (27.0-31.0); MEAN CORPUSCULAR HGB CONC 32.7 g/dL (33.0-36.5); MEAN CORPUSCULAR VOLUME 101.4 FL (78-98); MEAN PLATELET VOLUME 9.2 FL (7.4-10.4); MONOCYTES # (AUTO) 0.9 X10'3 (0-0.9); MONOCYTES % (AUTO) 6.4 % (2-12); NEUTROPHILS # (AUTO) 11.1 X10'3 (1.8-7.7); NEUTROPHILS % (AUTO) 82.3 % (42-75); PLATELET COUNT 234 X10'3 (140-440); RED BLOOD COUNT 3.29 X10'6 (4.70-6.10); RED CELL DISTRIBUTION WIDTH 15.2 % (11.5-14.5); WHITE BLOOD COUNT 13.5 X10'3 (4.5-11.0)
[2024-08-23] MEDS: clopidogrel 75mg tablet PO SCH (07:44)
[2024-08-23] MEDS: atorvastatin 20mg tablet PO SCH (07:44)
[2024-08-23] MEDS: cholecalciferol (vitamin D3) 1,000 unit (25mcg) tablet PO SCH (07:45)
[2024-08-23] MEDS: EMPAGLIFLOZIN 10 MG TABLET PO SCH (07:45)
[2024-08-23 08:09] LABS: ALANINE AMINOTRANSFERASE 18 U/L (12-78); ALBUMIN 3.4 G/DL (3.4-5.0); ALKALINE PHOSPHATASE 122 IU/L (46-116); ANION GAP 12 (8-16); ASPARTATE AMINO TRANSFERASE 17 U/L (10-37); BILIRUBIN,TOTAL 0.3 MG/DL (0.1-1.0); BLOOD UREA NITROGEN 35 MG/DL (7-18); BUN/CREATININE RATIO 24.1 (10.0-20.0); CALCIUM 9.1 MG/DL (8.5-10.1); CHLORIDE 109 MMOL/L (99-107); CREATININE 1.45 MG/DL (0.60-1.10); GLUCOSE 126 MG/DL (70-104); MAGNESIUM 1.9 MG/DL (1.5-2.4); POTASSIUM 4.9 MMOL/L (3.5-5.1); SODIUM 145 MMOL/L (135-145); TOTAL CARBON DIOXIDE 23.6 MMOL/L (24-32); TOTAL PROTEIN 6.9 G/DL (6.4-8.2); eCRCL 44 ML/MIN; eGFR 47 ML/MIN
[2024-08-23] MEDS ORDERED: CEFD300C3 PO (10:56)
[2024-08-23] MEDS ORDERED: LACT1CAP26 PO (10:56)
--- NOTE | 2024-08-23 19:22 | DISCHARGE SUMMARY-Residence ---
Discharge Summary Providers to CC Resident Creating Document: VARGHESE CYRUSMARIANA Cervantes, RES ~ Discharge Summary Admission Diagnosis: Shortness of breath Hospital Course DATE OF ADMISSION: 08/21/2024 DATE OF DISCHARGE: 08/23/2024 Discharge Diagnosis\Comment: Acute exacerbation of diastolic congestive heart failure with preserved ejection fraction of 50% S/P CABG on 07/18/2024 Left pleural effusion Acute exacerbation of COPD CKD stage IIIa Hypertension Hypothyroidism AFib rate controlled Operations\Procedures: None Consultants: None Complications: None Condition on DC: Stable New Medications: Cefdinir (Cefdinir) 300 Mg Capsule 1 CAP PO Q12H for 2 Days, #4 CAP 0 Refills Lactobacillus Rhamnosus (Culturelle) 10 Billion Cell Capsule 1 CAP PO BID for 30 Days, #60 CAP 0 Refills Continued Medications: Acetaminophen (Tylenol) 325 Mg Tablet 650 MG PO Q6H PRN PAIN, TAB albuterol inhaler (Pro-Air Inhaler) 8.5 Gm Inhaler 2 PUFFS INH Q4HPRN PRN for wheezing for 30 Days, #18 GM Atorvastatin Calcium (Lipitor) 80 Mg Tablet 1 TAB PO DAILY for 30 Days, #30 TAB 0 Refills Cholecalciferol (Vitamin D) 2,000 Unit Tablet 1 TAB PO DAILY for 30 Days, #30 TAB 0 Refills Clopidogrel Bisulfate (Clopidogrel) 75 Mg Tablet 1 TAB PO DAILY for 30 Days, #30 TAB 0 Refills Do not stop medication unless instructed by prescriber. Levothyroxine Sodium (Synthroid) 112 Mcg Tablet 1 TAB PO DAILY for 30 Days, #30 TAB 0 Refills Losartan Potassium* (Cozaar*) 25 Mg Tablet 2 TAB PO DAILY for 30 Days, #30 TAB Metoprolol Tartrate (Lopressor tablet) 25 Mg Tablet 2 TAB PO Q12H for 30 Days, #60 TAB Hold for SBP below 100mm Hg Hold for Heart Rate below 60. Montelukast Sodium (Singulair) 10 Mg Tablet 1 TAB PO HS for 30 Days, #30 TAB 0 Refills Venkatesh/Polymyx B Sulf/Dexameth (Maxitrol Eye Drops) 3.5 Mg/Ml-10,000 Unit/Ml-0.1 % Drops.susp 1 DROP EACHEYE Q6H for 7 Days, #5 ML Pantoprazole Sodium (PROTONIX tablet) 40 Mg Tablet.dr 1 TAB PO DAILY for 30 Days, #30 TAB 0 Refills Tiotropium Bryan (Spiriva) 18 Mcg Cap.w.dev 1 CAP INH DAILY for 30 Days, #30 CAP 0 Refills Tramadol HCl (Tramadol HCl) 50 Mg Tablet 1 TAB PO TID PRN PRN for pain for 30 Days, #90 TAB Discharge Summary: HPI: PCP: [facility]. Awning Finisher: Dr. Rocha. 79 years old male patient with past medical history of hypertension, COPD, stroke, CAD s/p CABG came to the hospital with chief complaint of shortness of breaths. The patient states that he has been experiencing shortness of breath on and off for approximately one year. He endorses that his shortness of breath started getting worse during the last three months, but reports that after his CABG on 07/15/2024 his shortness of breath was getting even worse. The patient currently denies any cough, he states that he has inhalers at home which he was using with more frequency but was not enough to control his symptoms. The patient also reports that he has been having shortness of breaths when he lays down flat and improves when he stands up. He denies any fever sensation, chills, reports mild chest pain 1/10 in intensity after the surgery described as a sharp type without radiation. Currently denies any urinary or intestinal symptoms. Hospital course: 79 years old male patient came to the hospital with chief complaint of shortness of breaths. The patient states that he got a CABG on 07/15/2024, after that the patient experienced mild shortness of breath getting worse during the last couple of days. The patient was admitted with the acute exacerbation of congestive heart failure. The patient was started on Lasix 40 mg b.i.d. IV. At the same time the patient also had exacerbation of COPD, the patient was started on antibiotics, steroids and DuoNebs. The patient reported significant improvement of shortness of breaths upon the next day. Physical therapy evaluation was performed, the patient is home independent patient. The patient remained hemodynamically stable. The patient will be discharged home. Discharge course: The patient remained hemodynamically stable. The patient will be discharged with the following instructions: Come back to the Emergency department or call 911 if shortness of breath, chest pain, palpitations. Take cefdinir 1 tablet of 300 mg every 12 hours for 2 days. Take culturelle 1 capsule every 12 hours. Continue your home medication. Follow up with your primary care physician at the [facility] within 2 weeks. Follow up with your cardiologust within 1 month Follow up with cardiothoracic surgeon within 1 month. Physical exam: General: Well alert, well oriented, not confused, not agitated, not in acute distress, well cooperated during the physical. HEENT: Conjunctive are pink, sclerae clear, no icterus, pupil is equal in both sides, reactive to light, no ear discharge, no pharyngeal erythema or an edema. Neck: Supple, no JVD, no lymphadenopathy and thyromegaly. Chest: Diminished air entry in the left base of the lung. no pathological sounds, ronchus or wheezing. Presence of scar from previous surgery without signs of infection or inflammation. Cardiovascular: S1-S2 irregular rhythm and, regular rate, no gallops, no rubs, no murmurs Abdomen: No visible peristalsis, Bowel sounds present on auscultation, soft, nontender, no guarding, no rigidity Extremities: No obvious deformities, 1+ pedal edema, capillary refill intact, peripheral pulsations are intact on both sides Central Nervous System: No focal neurological deficits, no motor or sensory weakness in all 4 extremities, could move all 4 extremities, 2+ deep tendon reflexes, negative Babinski. Musculoskeletal: No joint swelling, deformities, inflammations, and no scoliosis and back tenderness Skin: Warm and dry. Vital Signs Date Time Temp Pulse Resp B/P (MAP) Pulse Ox O2 Delivery O2 Flow Rate FiO2 08/23/24 10:09 97.5 100 17 106/66 (79) 94 08/23/24 08:40 Room Air 0.0 21 Laboratory Tests Test 08/22/24 05:51 08/23/24 07:25 White Blood Count 3.9 X10'3 13.5 X10'3 Red Blood Count 3.30 X10'6 3.29 X10'6 Hemoglobin 10.9 g/dl 10.9 g/dl Hematocrit 32.5 % 33.3 % Mean Corpuscular Volume 98.5 FL 101.4 FL Mean Corpuscular Hemoglobin 33.0 PG 33.2 PG Mean Corpuscular Hemoglobin Concent 33.5 g/dL 32.7 g/dL Red Cell Distribution Width 14.7 % 15.2 % Platelet Count 219 X10'3 234 X10'3 Mean Platelet Volume 9.3 FL 9.2 FL Neutrophils (%) (Auto) 71.2 % 82.3 % Lymphocytes (%) (Auto) 25.0 % 11.3 % Monocytes (%) (Auto) 3.7 % 6.4 % Eosinophils (%) (Auto) 0 % 0 % Basophils (%) (Auto) 0.1 % 0 % Neutrophils # (Auto) 2.8 X10'3 11.1 X10'3 Lymphocytes # (Auto) 1.0 X10'3 1.5 X10'3 Monocytes # (Auto) 0.1 X10'3 0.9 X10'3 Eosinophils # (Auto) 0.0 X10'3 0.0 X10'3 Basophils # (Auto) 0.0 X10'3 0.0 X10'3 CBC Comment Sodium Level 143 MMOL/L 145 MMOL/L Potassium Level 4.0 MMOL/L 4.9 MMOL/L Chloride Level 108 MMOL/L 109 MMOL/L Carbon Dioxide Level 19.7 MMOL/L 23.6 MMOL/L Anion Gap 15 12 Blood Urea Nitrogen 20 MG/DL 35 MG/DL Creatinine 1.24 MG/DL 1.45 MG/DL Estimated GFR/1.73 m2 56 ML/MIN 47 ML/MIN BUN/Creatinine Ratio 16.1 24.1 Glucose Level 157 MG/DL 126 MG/DL Calcium Level 8.9 MG/DL 9.1 MG/DL Magnesium Level 1.8 MG/DL 1.9 MG/DL Total Bilirubin 0.4 MG/DL 0.3 MG/DL Aspartate Amino Transf (AST/SGOT) 21 U/L 17 U/L Alanine Aminotransferase (ALT/SGPT) 20 U/L 18 U/L Alkaline Phosphatase 132 IU/L 122 IU/L Total Protein 6.9 G/DL 6.9 G/DL Albumin 3.2 G/DL 3.4 G/DL Globulin 3.7 G/DL 3.5 G/DL Albumin/Globulin Ratio 0.9 1.0 Thyroid Stimulating Hormone (TSH) 0.09 ulU/ml Chemistry Comments *Problems/Diagnosis: (1) Acute on chronic diastolic heart failure Status: Acute (2) Acute exacerbation of chronic obstructive airways disease Status: Acute (3) Chronic atrial fibrillation Status: Chronic Total Time Spent on D/C: > 30 Minutes Date of Service: Aug 23, 2024 Billing Provider: PASHA CHAVES MD Common Visit Codes: 06287-SXG/OBS DISCH DAY >30min MARIANA GIRARD, RES Aug 23, 2024 19:22 PASHA CHAVES MD Aug 24, 2024 18:53
[2024-08-24] MEDS ORDERED: methylPREDNISolone sod succ/PF 40mg inj. IV SCH (08:00)
== END 2024-08-23 12:08 | disposition home health service (06) | DRG 291 ==
LOC: ER 09:12 → ED HOLD 15:59 → PCU 3S 22:45
PROVIDERS: ADMIT Internal Medicine; ATTEND Internal Medicine
DX: I13.0 Hypertensive heart and chronic kidney disease with heart failure and stage 1 through stage 4 chronic kidney disease, or unspecified chronic kidney disease (principal); I50.33 Acute on chronic diastolic (congestive) heart failure; J44.1 Chronic obstructive pulmonary disease with (acute) exacerbation; Z66 Do not resuscitate; I48.91 Unspecified atrial fibrillation; E03.9 Hypothyroidism, unspecified; N18.31 Chronic kidney disease, stage 3a; I25.10 Atherosclerotic heart disease of native coronary artery without angina pectoris; Z95.1 Presence of aortocoronary bypass graft; Z79.899 Other long term (current) drug therapy
CPT/HCPCS: 36415; 71045; 71250; 73630; 76604; 80048; 80053; 83735; 83880; 84443; 84484; 85025; 87081; 93005; 93306; 94640; 94760; 96365; 96375; 97116; 97161; 97530; 99285; A7015; G0378; J0696; J1938; J2919; J3490; J7030; J7040

== ENCOUNTER 2024-10-17 13:37 | Inpatient (IN) | payer OTHER, MEDICARE ==
[~2024-10-17] VITALS: Ht 180.3 cm; Wt 78.5 kg
[~2024-10-17 13:37] MED LIST changes: +ACET-1008 PO; -CARV3.12 PO; +CEFD300C3 PO; -CLOB30CR11 TOP; +CLOP75TA34 PO; -FURO-150 PO; +LACT1CAP26 PO; +LOP12.5T PO; +LOSA-415 PO; -LOSA-418 PO; +MONT-47 PO; -NITR0.4T51 SL; +PANT-47 PO; -RIVA20TA PO; -SILD100T PO; -SPIR25TA5 PO; +TRAM50TA2 PO
--- NOTE | 2024-10-17 13:56 | ELECTROCARDIOGRAPH REPORT ---
[facility] Test Date: 2024-10-17 Test Time: 13:43:15 Pat Name: MICHELLE HASSAN Department: EMERGENCY ROOM Room: Gender: M Logging Engineer: : 1945 Requested By: GLADYS GODFREY Order Number: [id number] Reading MD: Measurements Intervals [place] Rate: 84 P: 0 [place]: 0 QRS: 73 QRSD: 89 T: -61 QT: 369 QTc: 437 Interpretive Statements Atrial fibrillation Anterior infarct, old Borderline T abnormalities, inferior leads Please click the below link to view image of tracing.
--- NOTE | 2024-10-17 13:57 | Physician Documentation ---
History of Present Illness ~ Chief Complaint: Respiratory Distress Stated Complaint: FLUID IN LUNGS SOB CARDIAC HISTORY Time Seen by MD: 14:36 Primary Medical Doctor: [facility] HPI Patient is a 79-year-old gentleman that presents to the emergency department for evaluation and increased shortness a breath and high blood pressure. Patient reports that he was seen here in July for a double bypass. Patient reports that he has been seen multiple times since that time for difficulty with shortness of concern for CHF exacerbation. Patient reports increased shortness of breath with exertion. 1300: 79-year-old male was at the [facility] today and was advised that he had abnormal lab values including an elevated troponin. Precipitated the [facility] advised the patient come to the ER for evaluation of an acute cardiac event. Patient received 324 of aspirin at the [facility] Day of Onset: Oct 17, 2024 Medication Reconciliation Allergies: Coded Allergies: No Known Allergies (Unverified , 08/21/24) Scheduled Acetaminophen (Tylenol), 650 MG PO Q6H PRN PAIN, (Reported) Atorvastatin Calcium (Lipitor), 1 TAB PO DAILY, (Reported) Cefdinir (Cefdinir), 1 CAP PO Q12H Cholecalciferol (Vitamin D), 1 TAB PO DAILY, (Reported) Clopidogrel Bisulfate (Clopidogrel), 1 TAB PO DAILY, (Reported) Lactobacillus Rhamnosus (Culturelle), 1 CAP PO BID Levothyroxine Sodium (Synthroid), 1 TAB PO DAILY, (Reported) Losartan Potassium* (Cozaar*), 2 TAB PO DAILY, (Reported) Metoprolol Tartrate (Lopressor tablet), 2 TAB PO Q12H, (Reported) Montelukast Sodium (Singulair), 1 TAB PO HS, (Reported) Venkatesh/Polymyx B Sulf/Dexameth (Maxitrol Eye Drops), 1 DROP EACHEYE Q6H, (Reported) Pantoprazole Sodium (PROTONIX tablet), 1 TAB PO DAILY, (Reported) Tiotropium [place] (Spiriva), 1 CAP INH DAILY, (Reported) Scheduled PRN Tramadol HCl (Tramadol HCl), 1 TAB PO TID PRN PRN for pain, (Reported) albuterol inhaler (Pro-Air Inhaler), 2 PUFFS INH Q4HPRN PRN for wheezing, (Reported) Past Medical History Alcohol Use: Occasionally Drug Use: none Lives with: Other Lives In: Home Occupation: retired Review of Systems All Other Systems at this time: Reviewed and Negative ROS As stated above in the HPI, otherwise all systems are reviewed and negative. Physical Exam Vital Signs: Temperature: 97.9, Source: Temporal, Heart Rate: 80, Respiratory Rate: 17, BP: 135/85, Pulse Oximetry: 96, Weight: 68.950 Physical Exam General: Alert, no apparent distress. Respiratory: Lungs clear, no respiratory distress. Chest: No accessory muscle use. Cardiovascular: Regular rate and rhythm, no murmurs. Gastrointestinal: Soft, nontender, nondistended. Bowels sounds present. Neurologic: Oriented x4. Psychiatric: Normal mood and affect. Skin: Normal color, warm and dry. No edema, no ecchymosis. Progress Results/Orders Results/Orders Orders - BEN HOLLAND ELECTRIC RAZOR MECHANIC Cbc/Diff (10/18/24 03:00) Cbc/Diff (10/19/24 03:00) Cbc/Diff (10/20/24 03:00) Cbc/Diff (10/21/24 03:00) Cbc/Diff (10/22/24 03:00) Page Hospitalist (10/17/24 ) Completed Orders - BEN HOLLAND [employer]LECT[employer]IC [employer]ZOR MECHANIC Pt Inr (10/17/24 14:43) PTT (10/17/24 14:43) Heparin 10,000 Unit/Ml 1ml (Heparin 10,0 (10/17/24 15:30) Message To Nursing (10/17/24 15:30) Vital Signs 10/17/24 10/17/24 13:50 15:12 Temp 97.9 Pulse 80 Resp 17 18 B/P (MAP) 135/85 Pulse Ox 96 Laboratory Tests Test 10/17/24 13:58 White Blood Count 6.3 Red Blood Count 3.97 L Hemoglobin 12.3 L Hematocrit 36.7 L Mean Corpuscular Volume 92.5 Mean Corpuscular Hemoglobin 30.9 Mean Corpuscular Hemoglobin Concent 33.4 Red Cell Distribution Width 14.2 Platelet Count 174 Mean Platelet Volume 9.3 Neutrophils (%) (Auto) 50.5 Lymphocytes (%) (Auto) 34.1 Monocytes (%) (Auto) 10.0 Eosinophils (%) (Auto) 4.4 Basophils (%) (Auto) 1.0 Neutrophils # (Auto) 3.2 Lymphocytes # (Auto) 2.1 Monocytes # (Auto) 0.6 Eosinophils # (Auto) 0.3 Basophils # (Auto) 0.1 CBC Comment Prothrombin Time 10.8 INR International Normalized Ratio 1.1 Activated Partial Thromboplast Time 27 Coagulation Comments Sodium Level 140 Potassium Level 3.7 Chloride Level 108 H Carbon Dioxide Level 23.5 L Anion Gap 9 Blood Urea Nitrogen 15 Creatinine 1.24 H Estimated GFR/1.73 m2 56 BUN/Creatinine Ratio 12.1 Glucose Level 111 H Calcium Level 8.9 Total Bilirubin 0.6 Aspartate Amino Transf (AST/SGOT) 26 Alanine Aminotransferase (ALT/SGPT) 18 Alkaline Phosphatase 96 Troponin I High Sensitivity 2128 *H C-Reactive Protein 0.18 Pro-B-Type Natriuretic Peptide 3455 H Total Protein 6.9 Albumin 3.5 Globulin 3.4 Albumin/Globulin Ratio 1.0 L Chemistry Comments Medical Decision Making Findings Patient has a complex cardiac history including bypass, peripheral vascular disease moderate cardiomyopathy, and a history of permanent atrial fibrillation, Today his chest pain has a intermittent and he currently denies any chest pain however his troponins are over 2100. I am currently suspecting demand ischemia secondary to worsening CHF. Have a moderate pleural effusion on the left lung base At this time I am going to request hospital admission for evaluation. Started him on heparin protocol I spoke with the patient's section supervisor's Helen Camejo./ he indicated to go ahead and proceed with hospital admission and heparinize the patient Differential Dx:Considerations: Include: anxiety, asthma, bronchitis, cardiogenic shock, CHF, COPD, dysrhythmia, hypertension, accelerated, hypertension, essential, hypertension, malignant, hyperventilation, hyponatremia, myocardial infarction, panic attack, pneumonia, pneumonitis, p neumothorax, PSVT, pulmonary embolism, respiratory distress, respiratory failure, sinusitis, upper resp. infection, other Departure Disposition: ADMITTED INPATIENT Impression: Primary Impression: Demand ischemia Referrals: NO PRIMARY CARE PROVIDER (PCP) Signature Scribe Signature: r Attestation: Scribed for Ben Holland Power Press Tender by Ben Winn NP . 10/17/24 23:40 GLADYS GODFREYP Oct 17, 2024 13:57 BEN HOLLAND NP Oct 17, 2024 15:07
[2024-10-17 14:13] LABS: MEAN PLATELET VOLUME 9.3 FL (7.4-10.4); RED CELL DISTRIBUTION WIDTH 14.2 % (11.5-14.5)
--- NOTE | 2024-10-17 14:18 | RADIOLOGY REPORT ---
Chest x-ray Technique: PA and lateral views Comparison: 08/21/2024 CLINICAL INDICATION: CHEST PAIN FINDINGS: Heart size enlarged. There is a left pleural effusion. Right lung is clear IMPRESSION: 1. Left pleural effusion
[2024-10-17 14:29] LABS: CREATININE 1.24 MG/DL (0.60-1.10); TOTAL CARBON DIOXIDE 23.5 MMOL/L (24-32); eCRCL 47 ML/MIN; eGFR 56 ML/MIN
[2024-10-17 14:37] LABS: PRO BRAIN NATRIURETIC PEPTIDE 3455 PG/ML (0-450)
[2024-10-17] MEDS ORDERED: heparin 10,000 units/1 ML INJ IV ONE (14:45)
[2024-10-17 14:56] LABS: APTT 27 SECONDS (22-32); INR 1.1 INR
[2024-10-17] MEDS ORDERED: HYDROcodone/acetaminophen 10/325mg tab PO PRN (15:30)
[2024-10-17] MEDS ORDERED: potassium Cl 40MEQ/1/2NS 520ml 520 ML IV PRN (15:30)
[2024-10-17] MEDS ORDERED: magnesium Cl slow-release 64mg tablet PO PRN (15:30)
[2024-10-17] MEDS ORDERED: magnesium sulf-water 2g/50mL 50 ML IV PRN (15:30)
[2024-10-17] MEDS ORDERED: ondansetron/PF 4mg/2ml inj IV PRN (15:30)
[2024-10-17] MEDS ORDERED: potassium Cl 20 mEq SR tablet PO PRN ×2 (15:30)
[2024-10-17] MEDS ORDERED: HYDROcodone/acetaminophen 5mg/325mg tablet PO PRN (15:30)
[2024-10-17] MEDS ORDERED: magnesium sulf-water 4G/100mL 100 ML IV PRN (15:30)
[2024-10-17] MEDS: heparin 10,000 units/1 ML INJ IV ONE (15:31)
[2024-10-17] MEDS: heparin 25,000 UNIT/250ml bag 250 ML IV PRN (15:34)
[2024-10-17] MEDS ORDERED: heparin 25,000 UNIT/250ml bag 250 ML IV PRN (15:35)
[2024-10-17] MEDS ORDERED: heparin 10,000 units/1 ML INJ IV PRN (15:35)
[2024-10-17] MEDS: MESSAGE TO NURSING IV ONE ×2 (15:35→22:51)
[2024-10-17 16:58] LABS: LEUKOCYTE ESTERASE ,URINE NEGATIVE (Neg); NITRITES, URINE NEGATIVE (Neg); OCCULT BLOOD,URINE NEGATIVE (Neg)
[2024-10-17 16:59] LABS: UA COLLECTION TYPE CLN CATCH MIDSTREAM
--- NOTE | 2024-10-17 17:40 | CONSULTATION REPORT ---
History of Present Illness Providers to CC CC: WINTER ROCHA MD ~ Reason for Admit\Admit Dx: Cardiology consultation Refering MD: [facility] History of Present Illness This is a 79-year-old male with history of atrial fibrillation, hypertension, hypothyroidism, CVA about a year ago, COPD. He underwent coronary angiogram in July 2024 and subsequent two-vessel CABG with BRAGG to LAD and SVG to distal PDA. Has been having dyspnea on exertion since that time. Presents secondary to increased dyspnea on exertion and nonspecific chest pain when he lays flat. It is difficult for him to get his words out given his expressive aphasia after his CVA. He went to the [facility] and was found to have elevated troponins and was sent for further evaluation and management. He was found to have an 2128 and cardiology consultation was requested. Allergies: Coded Allergies: No Known Allergies (Unverified , 08/21/24) Home Medications Home Medications Active Culturelle (Lactobacillus Rhamnosus) 10 Billion Cell Capsule 1 Cap PO BID 30 Days Cefdinir 300 Mg Capsule 1 Cap PO Q12H 2 Days Reported Clopidogrel (Clopidogrel Bisulfate) 75 Mg Tablet 1 Tab PO DAILY 30 Days Do not stop medication unless instructed by prescriber. Singulair (Montelukast Sodium) 10 Mg Tablet 1 Tab PO HS 30 Days PROTONIX tablet (Pantoprazole Sodium) 40 Mg Tablet.dr 1 Tab PO DAILY 30 Days Cozaar* (Losartan Potassium) 25 Mg Tablet 2 Tab PO DAILY 30 Days Lopressor tablet (Metoprolol Tartrate) 25 Mg Tablet 2 Tab PO Q12H 30 Days Hold for SBP below 100mm Hg Hold for Heart Rate below 60. Tramadol HCl 50 Mg Tablet 1 Tab PO TID PRN PRN 30 Days Tylenol (Acetaminophen) 325 Mg Tablet 650 Mg PO Q6H PRN PAIN Spiriva (Tiotropium Bryce) 18 Mcg Cap.w.dev 1 Cap INH DAILY 30 Days Synthroid (Levothyroxine Sodium) 112 Mcg Tablet 1 Tab PO DAILY 30 Days Maxitrol Eye Drops (Venkatesh/Polymyx B Sulf/Dexameth) 3.5 Mg/Ml-10,000 Unit/Ml-0.1 % Drops.susp 1 Drop EACHEYE Q6H 7 Days Vitamin D (Cholecalciferol) 2,000 Unit Tablet 1 Tab PO DAILY 30 Days Lipitor (Atorvastatin Calcium) 80 Mg Tablet 1 Tab PO DAILY 30 Days Pro-Air Inhaler (Albuterol) 8.5 Gm Inhaler 2 Puffs INH Q4HPRN PRN 30 Days Past Medical History Medical History Comment CVA about a year ago with expressive aphasia Chronic atrial fibrillation Coronary artery disease status post two-vessel CABG Hypertension Hypothyroidism COPD Past Surgical History Surgical History Comment Two-vessel CABG with BRAGG to mid LAD and SVG to proximal PDA Tonsils Past Social History Social History Comment History of smoking but quit many years ago. Reports occasional alcohol use. No recreational drugs. Lives at home. Physical Exam Last Vital Signs Recorded: RN Vital Signs have been reviewed: Yes, Temperature: 97.9, Source: Temporal, Heart Rate: 77, Respiratory Rate: 21, BP: 169/96, Pulse Oximetry: 97, Weight: 68.950 Physical Exam General: Awake, alert, oriented. No apparent distress. He is speaking in full sentences. Neck: Supple. Normal range of motion. Respiratory: Lungs are clear. Diminished in the bases. No respiratory distress. On room air Chest: Normal shape and size. No accessory muscle use. Cardiovascular: Regular rate and rhythm. S1-S2. No murmur, gallop, rub. Gastrointestinal: Abdomen is soft. Nontender to palpation. Bowel sounds present. Extremities: No lower extremity edema, cyanosis or clubbing. Neurologic: Alert and oriented x4. Nonfocal Psychiatric: Normal mood and affect. Skin: Normal color. Warm and dry. Review of Systems All Other Systems at this time: Reviewed and Negative ROS Complains of dyspnea on exertion and intermittent chest pain when he lays flat. Otherwise, denies orthopnea or PND. No dizziness, lightheadedness or syncope. Results EKG EKG Atrial fibrillation with controlled ventricular response. No acute ST changes. Echocardiogram Echocardiogram Preliminary echocardiogram with LVEF 40%. Decreased from previous. X-ray X-ray Chest x-ray Technique: PA and lateral views Comparison: 08/21/2024 CLINICAL INDICATION: CHEST PAIN FINDINGS: Heart size enlarged. There is a left pleural effusion. Right lung is clear IMPRESSION: 1. Left pleural effusion Electronically Signed by:SERA KAISER MD Date & Time: 10/17/24 1416 Diagram Lab Result Diagram: 10/17/24 1358 10/17/24 1358 Assessment/Plan Additional Plan This is a 79-year-old male who presented secondary to shortness for breath. The following is his problem list: NSTEMI High sensitivity troponins 1961. --continue heparin drip for 48 hours --aspirin 81 mg daily --continue Plavix 75 mg daily --continue with troponin trend Heart failure with reduced ejection fraction by preliminary echocardiogram, acute --we will start Entresto 24-26 mg b.i.d. --start Jardiance 10 mg daily --continue metoprolol succinate 25 mg daily --consider addition of spironolactone if able to tolerate. --continue Lasix IV with strict intake and output measurements. Pleural effusion, left --continue Lasix. Consider thoracentesis Chronic kidney disease GFR 56. --recommend monitoring Patient has a low TSH in August 2024 No further thyroid function tests were completed. --recommend follow up with primary care provider. Case discussed with Dr. Helen Rocha in agreement with the above. Supervising MD Supervising Physician: LUDWIN Tinoco NP Oct 17, 2024 17:40
[2024-10-17 18:00] VITALS: BP 185/87; PULSE 76; RESP 16; TEMP 97.4; O2SAT 98
--- NOTE | 2024-10-17 18:41 | CARDIOLOGY REPORT ---
APPROVED REPORT EXAM: Limited 2D, Doppler, and color-flow Echocardiogram. Patient Location: ER RM 15 Blood Pressure: 138/86 mmHg Heart Rate: 66 bpm Indications Shortness of Breath Troponin: 2128 ProBNP: 3455 HX of Coronary Artery Disease CABG x 2 (07/18/24, [facility]) Atrial Fibrillation CHF COPD SHIRT TRIMMER: Rudolph Rocha MD Previous ECHO: 08/21/24, [facility], EF: 50; m MARTHA; m MR 2D Dimensions LA Diam4.8 cm IVSd 0.8 (0.7-1.1cm) LVDd 3.9 cm PWd 1.1 (0.7-1.1cm) IVSs 1.0 (0.8-1.2cm) LVDs 3.2 (2.5-4.0cm) PWs 1.4 (0.8-1.2cm) LVEF(%) 37.5 (>50%) Ao Asc Diam.3.36 cmIVC 18.76 mm FS (%) 17.8 % SV 24.9 ml CO 2.2 L/min M-Mode Dimensions Aortic Cusp Exc 1.11 (1.5-2.0cm) Aortic Valve AoV Peak Socrates. 178.2 cm/s AO Peak GR. 12.7 mmHg Tricuspid Valve TR P. Velocity 258 cm/s RAP ESTIMATE 10 mmHg TR Peak Gr. 27 mmHg RVSP 37 mmHg LEFT VENTRICLE Normal LV size and wall thickness. Overall systolic function is moderately decreased. LVEF is 40%. LV EF has decreased since previous echo. RIGHT VENTRICLE RV is normal size and function. Elevated right heart pressures with an RVSp of 37 mmHg. ATRIA Left atrium is moderately dilated. Right atrium is mildly dilated. AORTIC VALVE Aortic valve is trileaflet and sclerotic without stenosis. Trace insufficiency. Unchanged from previo us echo. MITRAL VALVE Mitral valve leaflets are mildly thickened with mild annular calcification. No stenosis. Mild regurgi tation. Unchanged from previous echo. TRICUSPID VALVE Tricuspid valve is grossly normal in structure with trace to mild regurgitation. PULMONIC VALVE Pulmonic valve is grossly normal in structure with physiologic insufficiency. GREAT VESSELS The aortic root is normal in size. The ascending aorta is normal in size. The IVC is normal in size a nd collapses >50% with inspiration. PERICARDIUM Normal pericardium. No effusion. Large pleural effusion present, not seen on previous echo. Other Information Study Quality: Adequate Conclusion Normal LV size and wall thickness. Overall systolic function is moderately decreased. LVEF is 40%. L VEF has decreased since previous echo. RV is normal size and function. Elevated right heart pressures with an RVSp of 37 mmHg. Left atrium is moderately dilated. Right atrium is mildly dilated. Aortic valve is trileaflet and sclerotic without stenosis. Trace insufficiency. Unchanged from prev ious echo. Mitral valve leaflets are mildly thickened with mild annular calcification. No stenosis. Mild regur gitation. Unchanged from previous echo. Tricuspid valve is grossly normal in structure with trace to mild regurgitation. Normal pericardium. No effusion. Large pleural effusion present, not seen on previous echo.
[2024-10-17] MEDS: metoprolol succinate 25mg (24-HOUR) SR. Tablet PO SCH (19:01)
[2024-10-17] MEDS: furosemide 10 MG/1 ML 10ml inj IV ONE (19:02)
--- NOTE | 2024-10-17 19:35 | HISTORY AND PHYSICAL ---
History & Physical Providers to CC ~ History of Present Illness Reason for Admit\Complaint: Sent from ID for water in lungs History of Present Illness 79-year-old male was at the ID clinic today and was advised that he had abnormal lab values including an elevated troponin. PCP in ID advised the patient come to the ER for evaluation of an acute cardiac event. Patient received 324 of aspirin at the ID. Patient is very poor historian and has memory loss issues but he mentioned to me that they told him that he has water in his lungs and that is the reason he needs to go to the hospital. They started him on water pill today in outpatient setting. he also gets short of breaths and gets tired. Patient did mentioned to me that he was getting left side chest pain early around 1:00 p.m. today but when I evaluated him eight already subsided. Patient denied any other symptoms. He had two beer in last three months denied use of any tobacco or any recreational drug. No other symptoms no other alleviating or exacerbating factors. Allergies: Coded Allergies: No Known Allergies (Unverified , 08/21/24) Home Medications Home Medications Active Culturelle (Lactobacillus Rhamnosus) 10 Billion Cell Capsule 1 Cap PO BID 30 Days Cefdinir 300 Mg Capsule 1 Cap PO Q12H 2 Days Reported Clopidogrel (Clopidogrel Bisulfate) 75 Mg Tablet 1 Tab PO DAILY 30 Days Do not stop medication unless instructed by prescriber. Singulair (Montelukast Sodium) 10 Mg Tablet 1 Tab PO HS 30 Days PROTONIX tablet (Pantoprazole Sodium) 40 Mg Tablet.dr 1 Tab PO DAILY 30 Days Cozaar* (Losartan Potassium) 25 Mg Tablet 2 Tab PO DAILY 30 Days Lopressor tablet (Metoprolol Tartrate) 25 Mg Tablet 2 Tab PO Q12H 30 Days Hold for SBP below 100mm Hg Hold for Heart Rate below 60. Tramadol HCl 50 Mg Tablet 1 Tab PO TID PRN PRN 30 Days Tylenol (Acetaminophen) 325 Mg Tablet 650 Mg PO Q6H PRN PAIN Spiriva (Tiotropium [place]) 18 Mcg Cap.w.dev 1 Cap INH DAILY 30 Days Synthroid (Levothyroxine Sodium) 112 Mcg Tablet 1 Tab PO DAILY 30 Days Maxitrol Eye Drops (Venkatesh/Polymyx B Sulf/Dexameth) 3.5 Mg/Ml-10,000 Unit/Ml-0.1 % Drops.susp 1 Drop EACHEYE Q6H 7 Days Vitamin D (Cholecalciferol) 2,000 Unit Tablet 1 Tab PO DAILY 30 Days Lipitor (Atorvastatin Calcium) 80 Mg Tablet 1 Tab PO DAILY 30 Days Pro-Air Inhaler (Albuterol) 8.5 Gm Inhaler 2 Puffs INH Q4HPRN PRN 30 Days Past Medical History Past Medical History Acute exacerbation of diastolic congestive heart failure 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 CABG on 07/15/2024. Past Social History Social History Comment He had two beer in last three months denied use of any tobacco or any recreational drug. He lives with his girlfriend. He is able to ambulate ROS ROS Review of system as mentioned above in HPI rest of the review of system unremarkable Exam Vitals: Vital Signs Date Time Temp Pulse Resp B/P (MAP) Pulse Ox O2 Delivery O2 Flow Rate FiO2 10/17/24 17:54 78 10/17/24 16:36 21 169/96 (120) 97 0 10/17/24 13:50 97.9 General: General-patient not in any acute distress, alert awake chronically ill- appearing, age-appropriate HEENT-atraumatic normocephalic, neck supple without elevated JVD, no thyromegaly or carotid bruit. No lymphadenopathy bilaterally. Eyes-no icterus or pallor seen in eyes Chest-decrease in breath sounds to auscultation bilaterally over lung base, breathing nonlabored no tachypnea, no wheezing, no crepitation, no crackles. Heart-S1-S2 normal, regular heart rate no murmur Abdomen bowel sounds positive on auscultation, soft nondistended nontender no guarding, no rigidity Skin no active skin rash Neurology-grossly intact, nonfocal alert awake , signs of mild dementia present Extremity- trace pedal edema able to move all 4 extremities Psychiatry - patient is not confused or agitated cooperated during physical examination Diagnostic Data Last Recorded Lab Results: 10/17/24 1358 10/17/24 1358 Diagnostic Data: Laboratory Tests Test 10/17/24 13:58 Prothrombin Time 10.8 SECONDS (9.0-12.0) INR International Normalized Ratio 1.1 INR Activated Partial Thromboplast Time 27 SECONDS (22-32) Coagulation Comments Additional Plan Patient is 79-year-old male admitted for acute exacerbation of systolic congestive heart failure, elevated troponins and chest pain, bilateral pleural effusion, chronic kidney disease stage 3, hypertension, hypothyroidism, AFib rate controlled. Cardiology consult requested from Dr. Rocha and Cardiology team evaluated the patient today and appreciate their consult for this patient's case. We will do home medication reconciliation once updated in electronic record system. Patient is started on IV Lasix we will continue to monitor renal function while diuresing the patient. Cardiology team started patient on Jardiance, Entresto, aspirin metoprolol and Lasix today. Further management depending on response to treatment. Code status discussed with the patient patient wishes DNR DNI. We will continue to follow patient in AM . Date of Service: Oct 17, 2024 Billing Provider: PASHA CHAVES MD Common Visit Codes: [id number] INP/OBS CARE (HIGH) Secondary Visit Codes: [id number] CARE PLAN 30 MINUTES PASHA CHAVES MD Oct 17, 2024 19:35
[2024-10-17 20:00] VITALS: RESP 16; O2SAT 98
[2024-10-17] MEDS: sacubitril/valsartan 24mg-26mg tablet PO SCH (21:25)
[2024-10-17 22:00] VITALS: BP 144/86; PULSE 69; RESP 14; TEMP 98; O2SAT 96
[2024-10-18] VITALS (9 sets, daily range): BP systolic 109–143; BP diastolic 59–94; PULSE 56–94; RESP 12–18; TEMP 97.1–97.9; O2SAT 90–97
[2024-10-18 04:48] LABS: CREATININE 1.33 MG/DL (0.60-1.10); TOTAL CARBON DIOXIDE 26.1 MMOL/L (24-32); eCRCL 44 ML/MIN; eGFR 52 ML/MIN
[2024-10-18 04:51] LABS: MEAN PLATELET VOLUME 9.9 FL (7.4-10.4); RED CELL DISTRIBUTION WIDTH 14.3 % (11.5-14.5)
--- NOTE | 2024-10-18 04:59 | ELECTROCARDIOGRAPH REPORT ---
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 DEVEN Weiss Measurements Intervals [place] Rate: 67 P: 0 HI: 0 QRS: 79 QRSD: 97 T: 60 QT: 428 QTc: 452 Interpretive Statements Atrial fibrillation Anterior infarct, age indeterminate Electronically Signed On 10-19-2024 15:38:[address] DEVEN Weiss Please click the below link to view image of tracing.
[2024-10-18] MEDS: heparin 10,000 units/1 ML INJ IV PRN (05:34)
[2024-10-18] MEDS: MESSAGE TO NURSING IV ONE ×3 (05:36→18:38)
[2024-10-18] MEDS: EMPAGLIFLOZIN 10 MG TABLET PO SCH (08:14)
[2024-10-18 08:47] LABS: OSMOLALITY 296 MOSM/K (280-300)
--- NOTE | 2024-10-18 12:55 | RADIOLOGY REPORT ---
Procedure: CT CT CHEST Reason for study/Clinical History: pleural effusion Comparison Study: DI CHEST,TWO VIEWS on DOS: 10/17/24, CT CT CHEST on DOS: 08/21/24, DI CHEST,SINGLE VIE W on DOS: 08/21/24, DI CHEST,SINGLE VIEW on DOS: 07/21/24, DI CHEST,SINGLE VIEW on DOS: 07/20/24 TECHNIQUE: Multidetector CT of the chest was performed from the lung apices to the upper abdomen with out the use of intravenous contract. Axial, coronal and sagittal multiplanar reformats were performed . Radiation Dose Information: CT Dose: CTDI volume is 15.9 mGy. Dose-length product is 615.2 mGy*cm The dose indicators for CT are the volume Computed Tomography (CT) Dose Index (CTDIvol) and the Dose Length Product (DLP), and are measured in units of mGy and mGy-cm, respectively. These indicators are not patient dose, but values generated from the CT scanner acquisition factors. The report includes radiation exposure data for exposures received during this examination. FINDINGS: Lower neck: Unremarkable. Lungs: No focal consolidation. No suspicious pulmonary nodule. Heart/Vascular Structures: Cardiomegaly. Coronary artery calcifications. Vascular calcifications of t he aorta. Lymph Nodes: No adenopathy Pleura: Moderate to large left pleural effusion. Left lower lobe compressive atelectasis. Musculoskeletal: No acute osseous abnormality. Mild Degenerative changes of the spine. Median sterno kavya. Soft tissues: Normal. Upper abdomen: Mildly nodular hepatic contours may represent early changes of hepatic cirrhosis. IMPRESSION: Moderate to large left pleural effusion with associated compressive atelectasis.
[2024-10-18 14:18] LABS: BFSOURCE LEFT PLEURAL FLD; PLEURAL FLUID PH 7.505 (7.63-7.65)
--- NOTE | 2024-10-18 14:23 | RADIOLOGY REPORT ---
PROCEDURE: ULTRASOUND GUIDED THORACENTESIS USING TEMPORARY CATHETER HISTORY: 79 Male with left requiring thoracentesis. DOCUMENTATION: Informed consent was obtained and a procedural time out was performed. TECHNIQUE: Ultrasound was used to locate the left pleural fluid collection with an image archived in the PACS. The skin over the left posterior hemithorax was sterilely prepped, draped, and infiltrate d with 1% lidocaine. Under real time ultrasound guidance, the left pleural space was accessed with a 19-gauge Yueh needle and connected to Vacutainers. The Yueh catheter was advanced, the needle was re moved and the temporary catheter was advanced and connected to the Vacutainer. Approximately 1.6 lite rs of straw-colored fluid was removed. The temporary catheter was removed and sterile dressings were applied. FINDINGS: Ultrasound demonstrates a left pleural effusion. Imaging confirms the needle tip within the fluid. Post thoracentesis imaging demonstrates . IMPRESSION: SUCCESSFUL ULTRASOUND GUIDED THORACENTESIS. Procedure by Dr. Obando
[2024-10-18 14:33] LABS: GLUCOSE,BODY FLUID 115 MG/DL; LDH,BODY FLUID 162 U/L; TOTAL PROTEIN,BODY FLUID 3.9 G/DL
--- NOTE | 2024-10-18 15:02 | PROCEDURE NOTE CC ---
Procedure Note CC Providers to CC ~ Procedure Name: Thoracentesis Description: Indication: Large L Pleural Effusion Time-out: Done Consent: Pt Site: L-side Anesthesia: Local Technique: US-guided Fluid: 1600ml yellow. Sample sent to lab Complication: None. EBL: 0ml Sepsis Screening Reassessment Date: Oct 18, 2024 ARCHANA FREIRE MD Oct 18, 2024 15:02
[2024-10-18 15:46] LABS: BF RBC COUNT 999 /CU MM; BF WBC COUNT 415 /CU MM (0-1000); BFAPPEAR HAZY; BFCOLOR YELLOW; BFSOURCE LEFT PLEURAL FLD; BFVOLUME 41 ML; EOSINOPHILS,BODY FLUID 9 %; LYMPHOCYTES,BODY FLUID 77 %; MONOCYTES,BODY FLUID 10 %; NEUTROPHILS,BODY FLUID 4 %
--- NOTE | 2024-10-18 16:15 | PROGRESS NOTE ---
Progress Note Cardiology Providers to CC ~ Subjective Subjective Patient states improvement in shortness for breath. He did undergo thoracentesis today. 1.6 L removed. Objective Result Diagram: 10/18/2441910/18/24419 Objective General: Awake, alert, oriented. No apparent distress Respiratory: Lungs are clear to auscultation bilaterally. No respiratory distress. Chest: Normal shape and size. No accessory muscle use. Cardiovascular: Irregularly irregular. S1-S2. No murmur, gallop, rub. Extremities: No lower extremity edema, cyanosis or clubbing. Neurologic: Alert and oriented x4. Nonfocal Psychiatric: Normal mood and affect. Skin: Normal color. Warm and dry. Coagulation Studies Laboratory Tests Test 10/17/24 13:58 10/18/24 11:39 Prothrombin Time 10.8 SECONDS (9.0-12.0) INR International Normalized Ratio 1.1 INR Activated Partial Thromboplast Time 27 SECONDS (22-32) APTT (Heparin Protocol) 49 SECONDS (45-60) Coagulation Comments Problem\Assessment\Plan Additional Plan This is a 79-year-old male who presented secondary to shortness for breath. The following is his problem list: NSTEMI High sensitivity troponins 2127, 1961, 193 Denies chest pain. Recommend medical management. --continue heparin drip for 48 hours --aspirin 81 mg daily (d/c on discharge as he will be on OAC) --continue Plavix 75 mg daily --continue statin --cardiac rehab recommended Heart failure with reduced ejection fraction by preliminary echocardiogram, acute --Entresto 24-26 mg b.i.d. -- Jardiance 10 mg daily -- metoprolol succinate 25 mg daily --spironolactone 12.5 mg daily --continue Lasix IV with strict intake and output measurements. Pleural effusion, left --thoracentesis October 18, 2024 with 1600 mL removed. Atrial fibrillation, persistent --discussed with patient. Recommend resume oral anticoagulation with Xarelto 20 mg daily. Follow up as an outpatient for verification of left atrial appendage ligation. Chronic kidney disease GFR 56. --recommend monitoring Patient has a low TSH in August 2024 No further thyroid function tests were completed. --recommend follow up with primary care provider. Case discussed with Dr. Helen Rocha in agreement with the above. Plan for outpatient follow up. 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 Otherwise, I will return on Monday October 21, 2024. Patient will follow up in the office within 1-2 weeks of discharge. Supervising Physician: LUDWIN Tinoco NP Oct 18, 2024 16:15
--- NOTE | 2024-10-18 16:42 | PROGRESS NOTE- Residence ---
Progress Note - Resident Providers to CC Resident Creating Document: MARSHALL HERNANDEZ RES ~ Antibiotic Timeout Antibiotic Ordered?: No Subjective The patient has been evaluated at the bedside. The patient reports mild cough. Objective Vital Signs Date Time Temp Pulse Resp B/P (MAP) Pulse Ox O2 Delivery O2 Flow Rate FiO2 10/18/24 14:00 89 18 143/94 (110) 97 Room Air 10/18/24 02:00 97.9 10/17/24 16:36 0 Result Diagram: 10/18/2441910/18/24419 Physical exam: HEENT-atraumatic normocephalic, neck supple without elevated JVD, no thyromegaly or carotid bruit. No lymphadenopathy bilaterally. Eyes-no icterus or pallor seen in eyes Chest-decrease in breath sounds to auscultation over right lung base, breathing nonlabored no tachypnea, no wheezing, no crepitation, no crackles. Presence of scar in the midline of the chest. Heart-S1-S2 normal, regular heart rate no murmur Abdomen bowel sounds positive on auscultation, soft nondistended nontender no guarding, no rigidity Skin no active skin rash Neurology-grossly intact, nonfocal alert awake , signs of mild dementia present Extremity- no pedal edema, able to move all 4 extremities Psychiatry - patient is not confused or agitated cooperated during physical examination Assessment Assessment 79-year-old male patient came to the hospital with chief complaint of shortness of breath. Plan Plan NSTEMI: Troponin levels [id number] 2-1931. EKG: No ST elevation. Cardiology was consulted who recommends medical therapy. Plan: Heparin for 48 hours. To be stopped tomorrow. Aspirin 81 mg daily. Plavix 75 mg daily. Metoprolol succinate 25 mg daily. Atorvastatin 40 mg daily. Acute exacerbation of systolic Congestive heart failure with ejection fraction of 40%: The patient reported shortness of breath and mild cough. ProBNP: 3455 Chest x-ray shows left-sided and pleural effusion Plan: Lasix 20 mg b.i.d. IV. Spironolactone 12.5 mg p.o. daily. Entresto 24-26mg 1 tablet p.o. b.i.d. Empagliflozin 10 mg daily. Left pleural effusion: CT chest : Moderate to large left pleural effusion with a associated trended compressive atelectasis. Plan: Diagnostic and therapeutic thoracentesis. Follow-up previous studies. Follow-up serum LDH. Atrial fibrillation, persistent: Cardiology was involved. Plan: Currently on heparin drip. Recommended to resume oral anticoagulation with Xarelto 20 mg daily. Possible Acute kidney injury on CKD likely secondary to vasomotor nephropathy: The patient is currently fluid overload. Not started on IV fluids. Continue to monitor BMP. Hypertension: Last blood pressure 143/94 mmHg. Code status: DNR. DVT prophylaxis: Heparin. Pain control: Morphine. GI prophylaxis: Protonix. IV access: PIV. PT: Ordered. Prognosis: Guarded. Disposition: Continue medical management. Marshall Hernandez PGY1 [facility] Date of Service: Oct 18, 2024 Billing Provider: PASHA CHAVES MD Common Visit Codes: [id number] INP/OBS CARE(HIGH) MARSHALL HERNANDEZ, RES Oct 18, 2024 16:41 PASHA CHAVES MD Oct 19, 2024 18:20
[2024-10-18] MEDS: neomycin/polymyxn B/dexameth ophth suspension 5ml EACHEYE SCH (20:44)
[2024-10-19] VITALS (7 sets, daily range): BP systolic 94–138; BP diastolic 57–95; PULSE 52–100; RESP 16–18; TEMP 97.4–97.8; O2SAT 92–99
[2024-10-19] MEDS: MESSAGE TO NURSING IV ONE ×3 (02:45→15:46)
[2024-10-19 06:35] LABS: MEAN PLATELET VOLUME 10.2 FL (7.4-10.4); RED CELL DISTRIBUTION WIDTH 14.4 % (11.5-14.5)
[2024-10-19 07:15] LABS: CREATININE 1.69 MG/DL (0.60-1.10); PRO BRAIN NATRIURETIC PEPTIDE 1404 PG/ML (0-450); TOTAL CARBON DIOXIDE 22.0 MMOL/L (24-32); eCRCL 38 ML/MIN; eGFR 39 ML/MIN
[2024-10-19 07:17] LABS: LACTATE DEHYDROGENASE 297 U/L (85-227)
[2024-10-19] MEDS: sacubitril/valsartan 24mg-26mg tablet PO SCH (08:00)
[2024-10-19] MEDS: pantoprazole 40mg Tablet.DR PO SCH (08:18)
[2024-10-19] MEDS: cholecalciferol (vitamin D3) 1,000 unit (25mcg) tablet PO SCH (08:18)
[2024-10-19] MEDS: levoTHYROXINE 112mcg tablet PO SCH (11:58)
--- NOTE | 2024-10-19 12:39 | PROGRESS NOTE- Residence ---
Progress Note - Resident Providers to CC Resident Creating Document: MARSHALL HERNANDEZ RES ~ Antibiotic Timeout Antibiotic Ordered?: Yes Subjective The patient has been evaluated at the bedside and he reports completely feeling well post thoracocentesis Objective Vital Signs Date Time Temp Pulse Resp B/P (MAP) Pulse Ox O2 Delivery O2 Flow Rate FiO2 10/19/24 10:49 97.7 95 18 97/57 (70) 96 Room Air 10/17/24 16:36 0 Result Diagram: 10/19/24 0537 10/19/2437 Physical exam: General- await, alert, and oriented x4, resting in bed, in no acute distress HEENT-atraumatic normocephalic, neck supple without elevated JVD, no thyromegaly or carotid bruit. No lymphadenopathy bilaterally. Eyes-no icterus or pallor seen in eyes Chest-decrease in breath sounds to auscultation over right lung base, breathing nonlabored no tachypnea, no wheezing, no crepitation, no crackles. Presence of scar in the midline of the chest. Heart-S1-S2 normal, regular heart rate no murmur Abdomen -bowel sounds positive on auscultation, soft nondistended nontender no guarding, no rigidity Skin - no active skin rash, skin is warm and dry Neurology-no focal weakness in upper and lower limb muscles, power of the muscles 5/5 bilateral upper and lower extremity, normal reflexes bilateral, cranial nerves intact Extremity- no pedal edema, able to move all 4 extremities Psychiatry - patient is not confused or agitated cooperated during physical examination Coagulation Studies Laboratory Tests Test 10/17/24 13:58 10/19/24 07:43 Prothrombin Time 10.8 SECONDS (9.0-12.0) INR International Normalized Ratio 1.1 INR Activated Partial Thromboplast Time 27 SECONDS (22-32) APTT (Heparin Protocol) 49 SECONDS (45-60) Coagulation Comments Assessment Assessment 79-year-old male patient came to the hospital with chief complaint of shortness of breath is currently evaluated for NSTEMI, acute exacerbation of systolic heart failure with reduced ejection, left-sided pleural effusion, atrial fibrillation Plan Plan NSTEMI: Troponin levels [id number] 2-1931. EKG: No ST elevation. Cardiology was consulted who recommends medical therapy. Plan: ordered lipid panel patient was planned on heparin 48 hours on 10/18/2024 , Heparin discontinue at 3 pm ( 10/19/24) continue Aspirin 81 mg daily. continue Plavix 75 mg daily. continue Atorvastatin 40 mg daily. Acute exacerbation of systolic heart failure with reduced ejection fraction: ejection fraction - 40% ProBNP: 3455 > 1404 (10/19/24) Chest x-ray shows left-sided and pleural effusion Plan: Discontinue Lasix 20 mg b.i.d. IV. Continue Spironolactone 12.5 mg p.o. daily. continue Entresto 24-26mg 1 tablet p.o. b.i.d. continue Empagliflozin 10 mg daily. Left pleural effusion likley exudative clinically doesnt correlate with exudative plueral effusion Differentials-bacterial pneumonia, lung cancer or metastatic cancer , autoimmune diseases CT chest : Moderate to large left pleural effusion with a associated trended compressive atelectasis Thotacocentiesis : 1.6 liters of straw-colored fluid was removed from left lung serum LDH : 297 Plan: Repeat chest x-ray repeat proclacitonin blood cultures are ordered Pleural fluid analysis and culture Atrial fibrillation, persistent: Cardiology consulted on 10/18/24. Plan: discontinued Heparin drip initially suggested 48 hours of heparin continue Metoprolol succinate 25 mg daily hold if pulse < 50 continue oral anticoagulation with Xarelto 20 mg daily. planned Follow up as an outpatient for verification of left atrial appendage ligation. Possible Acute kidney injury likely due to acute tubular necrosis secondary to Lasix: Patient baseline creatinine-1.25 BUN : 25 ; creatinine : 1.69 Plan Discontinue-Lasix to maintain to avoid negative fluid balance Hypertension: Last blood pressure 97/57 mmHg. maintain MAP of 65 mmg Hg Code status: DNR. DVT prophylaxis: Xarelto. Pain control: Morphine. GI prophylaxis: Protonix. IV access: PIV. PT: Ordered. Prognosis: Guarded. Disposition: Continue medical management. Marshall Hernandez PGY1 [facility] Date of Service: Oct 19, 2024 Billing Provider: PASHA CHAVES MD, SATISH, RES Oct 19, 2024 12:39
[2024-10-19 17:10] LABS: CHOL/HDL RATIO 3.1 (0.00-4.99); LDL CHOLESTEROL 71 MG/DL (50-100)
--- NOTE | 2024-10-19 17:18 | RADIOLOGY REPORT ---
CHEST RADIOGRAPH Indication: to ensure adequate fluid drainage and re-expansion of lung Technique: Single frontal view of the chest was obtained COMPARISON: CT CT CHEST on DOS: 10/18/24, DI CHEST,TWO VIEWS on DOS: 10/17/24, CT CT CHEST on DOS: 5, DI CHEST,SINGLE VIEW on DOS: 08/21/24, DI CHEST,SINGLE VIEW on DOS: 07/21/24 FINDINGS: Lines and Tubes: Median sternotomy. Lungs: Clear Pleura: Trace left pleural effusion. No pneumothorax. Cardiomediastinal contours: Unremarkable Bones: Unremarkable IMPRESSION: Trace left pleural effusion. No appreciable pneumothorax.
[2024-10-19] MEDS: heparin, porcine 5000 units/ml vial SQ SCH (22:47)
[2024-10-20] VITALS (8 sets, daily range): BP systolic 95–122; BP diastolic 54–75; PULSE 70–96; RESP 11–19; TEMP 97.3–98.6; O2SAT 92–98
[2024-10-20 06:30] LABS: MEAN PLATELET VOLUME 9.7 FL (7.4-10.4); RED CELL DISTRIBUTION WIDTH 14.6 % (11.5-14.5)
[2024-10-20 07:14] LABS: CREATININE 1.60 MG/DL (0.60-1.10); TOTAL CARBON DIOXIDE 25.6 MMOL/L (24-32); eCRCL 40 ML/MIN; eGFR 42 ML/MIN
[2024-10-20] MEDS: CefTRIAXone/D5W-Rocephin 1gm 50 ML IV SCH (09:38)
--- NOTE | 2024-10-20 14:28 | PROGRESS NOTE- Residence ---
Progress Note - Resident Providers to CC Resident Creating Document: SACHIN GIRARD, RES ~ Antibiotic Timeout Antibiotic Ordered?: Yes Subjective The patient has been evaluated at the bedside. The patient denies any shortness of breath, chest pain, palpitations. States that he is feeling better than before thoracentesis Objective Vital Signs Date Time Temp Pulse Resp B/P (MAP) Pulse Ox O2 Delivery O2 Flow Rate FiO2 10/20/24 08:30 88 10/20/24 08:00 14 95 Room Air 10/20/24 06:00 97.4 106/66 (79) 10/17/24 16:36 0 Physical exam: General: Well alert, well oriented, not confused, not agitated, not in acute distress, well cooperated during the physical. HEENT: Conjunctive are pink, sclerae clear, no icterus, pupil is equal in both sides, reactive to light, no ear discharge, no pharyngeal erythema or an edema. Neck: Supple, no JVD, no lymphadenopathy and thyromegaly. Chest: Equal air entry on both lungs, mild crackles in the left base. Cardiovascular: S1-S2 regular sinus rhythm and, regular rate, no gallops, no rubs, no murmurs Abdomen: No visible peristalsis, Bowel sounds present on auscultation, soft, nontender, no guarding, no rigidity Extremities: No obvious deformities, no pitting edema bilaterally, capillary refill intact, peripheral pulsations are intact on both sides Central Nervous System: No focal neurological deficits, no motor or sensory weakness in all 4 extremities, could move all 4 extremities, 2+ deep tendon reflexes, negative Babinski. Musculoskeletal: No joint swelling, deformities, inflammations, and no scoliosis and back tenderness Skin: Warm and dry. Result Diagram: 10/20/24 0537 10/20/24 0537 Coagulation Studies Laboratory Tests Test 10/17/24 13:58 10/19/24 13:22 Prothrombin Time 10.8 SECONDS (9.0-12.0) INR International Normalized Ratio 1.1 INR Activated Partial Thromboplast Time 27 SECONDS (22-32) APTT (Heparin Protocol) 58 SECONDS (45-60) Coagulation Comments Assessment Assessment 79-year-old male patient came to the hospital with chief complaint of shortness of breath is currently evaluated for NSTEMI, acute exacerbation of systolic heart failure with reduced ejection, left-sided pleural effusion, atrial fibrillation. Plan Plan NSTEMI: Troponin levels [id number]. EKG: No ST elevation. Cardiology was consulted who recommends medical therapy. 10/20/2024: A: The patient denies any chest pain. LDL: 71, cholesterol 120. Plan: Discontinued heparin drip. continue Aspirin 81 mg daily (to be discontinued at discharge by Cardiology recommendation). continue Plavix 75 mg daily. continue Atorvastatin 40 mg daily. Community-acquired pneumonia/bacterial: POA: Pleural fluid showing LDH of 162, protein of 3.9. Serum protein 6.9, LDH 297. Blood culture positive for gram positive microorganisms in chains. Plan: Follow-up sensitivity for blood culture. Ceftriaxone 1 g IV daily. Azithromycin 500 mg p.o. daily. Culturelle 32973 mg p.o. b.i.d. Acute exacerbation of systolic heart failure with reduced ejection fraction of 4 0% 10/20/2024: ProBNP: ProBNP trended down. Plan: Continue Spironolactone 12.5 mg p.o. daily. continue Entresto 24-26mg 1 tablet p.o. b.i.d. continue Empagliflozin 10 mg daily. Continue metoprolol succinate 25 mg daily. Atrial fibrillation, persistent: Cardiology consulted on 10/18/24. 10/20/2024: TSH within reference range. Plan: Continue Metoprolol succinate 25 mg daily hold if pulse < 50 Xarelto 20 mg daily to be resumed for discharge with discontinuation of aspirin. Planned follow up as an outpatient for verification of left atrial appendage ligation. Possible Acute kidney injury likely due to acute tubular necrosis secondary to Lasix: Patient baseline creatinine-1.25 BUN : 25 ; creatinine : 1.69 10/20/2024: Creatinine came down from 1.69-1.60. Plan Continue to monitor CMP. Hypertension: Last blood pressure 106/66. maintain MAP of 65 mmg Hg Code status: DNR. DVT prophylaxis: Heparin. Pain control: Morphine. GI prophylaxis: Protonix. IV access: PIV. PT: Home independent. Prognosis: Guarded. Disposition: Continue medical management. Sachin Banks Internal Medicine Resident [facility] Date of Service: Oct 20, 2024 Billing Provider: PASHA CHAVES MD Common Visit Codes: [id number] INP/OBS CARE(HIGH) SACHIN GIRARD, RES Oct 20, 2024 14:28 PASHA CHAVES MD Oct 20, 2024 18:19
[2024-10-20] MEDS: lactobacillus rhamnosus 10,000 MMU CELLS/CAPSULE PO SCH (20:54)
[2024-10-21] VITALS (8 sets, daily range): BP systolic 90–112; BP diastolic 54–82; PULSE 87–110; RESP 15–21; TEMP 97.1–98.2; O2SAT 93–98
[2024-10-21 06:48] LABS: CREATININE 1.62 MG/DL (0.60-1.10); TOTAL CARBON DIOXIDE 27.4 MMOL/L (24-32); eCRCL 39 ML/MIN; eGFR 41 ML/MIN
[2024-10-21 06:58] LABS: MEAN PLATELET VOLUME 10.2 FL (7.4-10.4); RED CELL DISTRIBUTION WIDTH 14.6 % (11.5-14.5)
--- NOTE | 2024-10-21 18:54 | PROGRESS NOTE- Residence ---
Progress Note - Resident Providers to CC Resident Creating Document: GABY HERNANDEZ RES ~ Antibiotic Timeout Antibiotic Ordered?: Yes Subjective The patient has been evaluated at the bedside. He feels a tired, patient denies shortness of breath, chest pain, palpitations. Objective Vital Signs Date Time Temp Pulse Resp B/P (MAP) Pulse Ox O2 Delivery O2 Flow Rate FiO2 10/21/24 15:00 97.4 98 21 103/63 (76) 98 Room Air 10/21/24 14:26 0 21 Result Diagram: 10/21/2433 10/21/24532 Physical exam: General- await, alert, and oriented x4, resting in bed, in no acute distress HEENT-atraumatic normocephalic, neck supple without elevated JVD, no thyromegaly or carotid bruit. No lymphadenopathy bilaterally. Eyes-no icterus or pallor seen in eyes Chest- Equal air entry on both lungs, mild crackles in the left base.. Presence of scar in the midline of the chest. Heart-S1-S2 normal, regular heart rate no murmur Abdomen -bowel sounds positive on auscultation, soft nondistended nontender no guarding, no rigidity Skin - no active skin rash, skin is warm and dry Neurology-no focal weakness in upper and lower limb muscles, power of the muscles 5/5 bilateral upper and lower extremity, normal reflexes bilateral, cranial nerves intact Extremity- no pedal edema, able to move all 4 extremities Psychiatry - patient is not confused or agitated cooperated during physical examination Coagulation Studies Laboratory Tests Test 10/17/24 13:58 10/19/24 13:22 Prothrombin Time 10.8 SECONDS (9.0-12.0) INR International Normalized Ratio 1.1 INR Activated Partial Thromboplast Time 27 SECONDS (22-32) APTT (Heparin Protocol) 58 SECONDS (45-60) Coagulation Comments Assessment Assessment 79-year-old male patient came to the hospital with chief complaint of shortness of breath is currently evaluated for NSTEMI, acute exacerbation of systolic heart failure with reduced ejection, left-sided pleural effusion, atrial fibrillation. Plan Plan Type 2 [place] secondary to acute exacerbation of systolic heart failure with a reduced ejection fraction : Ejection fraction 40% Troponin levels [id number] EKG: No ST elevation. Cardiology was consulted who recommends medical therapy. ProBNP trending down 10/20/2024: A: The patient denies any chest pain. LDL: 71, cholesterol 120. Plan: Discontinued heparin drip continue Aspirin 81 mg daily (to be discontinued at discharge by Cardiology recommendation). continue Plavix 75 mg daily. continue Atorvastatin 40 mg daily. 10/21/2024: Plan: Continue heparin 5000 units per mL SQ;; Q 12 H continue Aspirin 81 mg daily (to be discontinued at discharge by Cardiology recommendation). continue Plavix 75 mg daily. continue Atorvastatin 40 mg daily Continue Spironolactone 12.5 mg p.o. daily. continue Entresto 24-26mg 1 tablet p.o. b.i.d. continue Empagliflozin 10 mg daily. Continue metoprolol succinate 25 mg daily. Community-acquired pneumonia/bacterial: POA: Pleural fluid showing LDH of 162, protein of 3.9. Serum protein 6.9, LDH 297. Blood culture positive for gram positive microorganisms in chains. Plan: Follow-up sensitivity for blood culture. Ceftriaxone 1 g IV daily. Azithromycin 500 mg p.o. daily. Culturelle 71031 mg p.o. b.i.d. Atrial fibrillation, persistent: Cardiology consulted on 10/18/24. 10/20/2024: TSH within reference range. Plan: Continue Metoprolol succinate 25 mg daily hold if pulse < 50 Xarelto 20 mg daily to be resumed for discharge with discontinuation of aspirin. Planned follow up as an outpatient for verification of left atrial appendage ligation. Possible Acute kidney injury likely due to acute tubular necrosis: Patient baseline creatinine-1.25 BUN : 25 ; creatinine : 1.69 10/20/2024: Creatinine came down from 1.69-1.60. 10/21/2024: Creatinine - 1.62 Plan Continue to monitor CMP. Hypertension: Last blood pressure 103/63 maintain MAP of 65 mmg Hg Code status: DNR. DVT prophylaxis: Heparin. Pain control: Morphine. GI prophylaxis: Protonix. IV access: PIV. PT: Home independent. Prognosis: Guarded. Disposition: Continue medical management. gaby hernandez PGY1 Date of Service: Oct 21, 2024 Billing Provider: SEN LLAMAS MD Common Visit Codes: [id number] INP/OBS CARE(HIGH) GABY HERNANDEZ, RES Oct 21, 2024 18:54 SEN LLAMAS MD Oct 22, 2024 07:46
[2024-10-22] VITALS (8 sets, daily range): BP systolic 99–124; BP diastolic 53–84; PULSE 66–100; RESP 13–18; TEMP 97.1–98; O2SAT 95–98
[2024-10-22 06:10] LABS: MEAN PLATELET VOLUME 9.9 FL (7.4-10.4); RED CELL DISTRIBUTION WIDTH 14.6 % (11.5-14.5)
[2024-10-22 06:13] LABS: CREATININE 1.51 MG/DL (0.60-1.10); TOTAL CARBON DIOXIDE 27.1 MMOL/L (24-32); eCRCL 42 ML/MIN; eGFR 45 ML/MIN
[2024-10-22] MEDS: VANCOMYCIN 2GM/400ML H20 (PEG) 400 ML IV ONE (11:37)
--- NOTE | 2024-10-22 18:51 | PROGRESS NOTE- Residence ---
Progress Note - Resident Providers to CC Resident Creating Document: GABY HERNANDEZ RES ~ Antibiotic Timeout Antibiotic Ordered?: Yes Subjective The patient has been evaluated at the bedside.patient denies shortness of breath, chest pain, palpitations. Objective Vital Signs Date Time Temp Pulse Resp B/P (MAP) Pulse Ox O2 Delivery O2 Flow Rate FiO2 10/22/24 15:23 97.8 82 15 104/64 (77) 97 Room Air 10/22/24 08:00 0.0 21 Result Diagram: 10/22/24 0534 10/22/24 0534 Physical exam: General- await, alert, and oriented x4, resting in bed, in no acute distress HEENT-atraumatic normocephalic, neck supple without elevated JVD, no thyromegaly or carotid bruit. No lymphadenopathy bilaterally. Eyes-no icterus or pallor seen in eyes Chest- Equal air entry on both lungs, mild crackles in the left base. Heart-S1-S2 normal, regular heart rate no murmur Abdomen -bowel sounds positive on auscultation, soft nondistended nontender no guarding, no rigidity Skin - no active skin rash, skin is warm and dry Neurology-no focal weakness in upper and lower limb muscles, power of the muscles 5/5 bilateral upper and lower extremity, normal reflexes bilateral, cranial nerves intact Extremity- no pedal edema, able to move all 4 extremities Psychiatry - patient is not confused or agitated cooperated during physical examination Coagulation Studies Laboratory Tests Test 10/17/24 13:58 10/19/24 13:22 Prothrombin Time 10.8 SECONDS (9.0-12.0) INR International Normalized Ratio 1.1 INR Activated Partial Thromboplast Time 27 SECONDS (22-32) APTT (Heparin Protocol) 58 SECONDS (45-60) Coagulation Comments Assessment Assessment 79-year-old male patient came to the hospital with chief complaint of shortness of breath is currently evaluated for type 2 ID secondary to acute exacerbation of systolic heart failure with reduced ejection, left-sided pleural effusion, atrial fibrillation. Plan Plan Type 2 ID secondary to acute exacerbation of systolic heart failure with a reduced ejection fraction : Ejection fraction 40% Troponin levels [id number]- EKG: No ST elevation. Cardiology was consulted who recommends medical therapy. ProBNP trending down 10/20/2024: A: The patient denies any chest pain. LDL: 71, cholesterol 120. Plan: Discontinued heparin drip continue Aspirin 81 mg daily (to be discontinued at discharge by Cardiology recommendation). continue Plavix 75 mg daily. continue Atorvastatin 40 mg daily. 10/21/2024: Plan: Continue heparin 5000 units per mL SQ;; Q 12 H continue Aspirin 81 mg daily (to be discontinued at discharge by Cardiology recommendation). continue Plavix 75 mg daily. continue Atorvastatin 40 mg daily Continue Spironolactone 12.5 mg p.o. daily. continue Entresto 24-26mg 1 tablet p.o. b.i.d. continue Empagliflozin 10 mg daily. Continue metoprolol succinate 25 mg daily. 10/22/2024: Plan: Continue heparin 5000 units per mL SQ;; Q 12 H Discontinue Aspirin 81 mg daily (to be discontinued at discharge by Cardiology recommendation). continue Plavix 75 mg daily. continue Atorvastatin 40 mg daily Continue Spironolactone 12.5 mg p.o. daily. continue Entresto 24-26mg 1 tablet p.o. b.i.d. continue Empagliflozin 10 mg daily. Continue metoprolol succinate 25 mg daily. Community-acquired pneumonia/bacterial: POA: Pleural fluid showing LDH of 162, protein of 3.9. Serum protein 6.9, LDH 297. Blood culture positive for gram positive microorganisms in chains. Plan: 10/22/2024 Culture sensitivity came out as Staph epidermidis Follow-up sensitivity for blood culture. Stop Ceftriaxone 1 g IV daily. continue Azithromycin 500 mg p.o. daily. Culturelle 96673 mg p.o. b.i.d. Started vancomycin pharmacy to dose Atrial fibrillation, persistent: Cardiology consulted on 10/18/24. 10/22/2024: TSH within reference range. Plan: Continue Metoprolol succinate 25 mg daily hold if pulse < 50 Xarelto 20 mg daily to be resumed for discharge with discontinuation of aspirin. Planned follow up as an outpatient for verification of left atrial appendage ligation. Possible Acute kidney injury likely due to acute tubular necrosis: Patient baseline creatinine-1.25 BUN : 25 ; creatinine : 1.69 10/20/2024: Creatinine came down from 1.69-1.60. 10/21/2024: Creatinine - 1.62 10/22/2024: BUN 35, creatinine came down to 1.51 Plan Continue to monitor CMP. Hypertension: Last blood pressure 103/63 maintain MAP of 65 mmg Hg Code status: DNR. DVT prophylaxis: Heparin. Pain control: Morphine. GI prophylaxis: Protonix. IV access: PIV. PT: Home independent. Prognosis: Guarded. Disposition: Continue medical management. gaby hernandez PGY1 Addendum bl cx / staph epi, 2 nd pending; contaminant vs unknown source Date of Service: Oct 22, 2024 Billing Provider: SEN LLAMAS MD Common Visit Codes: [id number] INP/OBS CARE(HIGH) GABY HERNANDEZ, ALLA Oct 22, 2024 18:51 SEN LLAMAS MD Oct 23, 2024 06:31
[2024-10-23 02:00] VITALS: BP 103/61; PULSE 86; RESP 18; TEMP 97.5; O2SAT 96
[2024-10-23 07:00] VITALS: BP 104/61; PULSE 84; RESP 16; TEMP 96.8; O2SAT 97
[2024-10-23 09:15] VITALS: BP_SYST 104; PULSE 84
[2024-10-23] MEDS ORDERED: vancomycin/NS 1 GM ADD-VANTAGE 250 ML IV SCH (12:00)
[2024-10-23] MEDS ORDERED: FURO-150 PO (12:54)
[2024-10-23] MEDS ORDERED: EMPA10TA PO (12:58)
--- NOTE | 2024-10-23 13:04 | DISCHARGE SUMMARY-Residence ---
Discharge Summary Providers to CC ~ BERTHA HERNANDEZ, RES Oct 23, 2024 13:03
--- NOTE | 2024-10-23 16:43 | DISCHARGE SUMMARY-Residence ---
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- Complications: none Condition on DC: Stable New Medications: Empagliflozin (Jardiance) 10 Mg Tablet 1 TAB PO DAILY for 30 Days, #30 TAB 0 Refills Furosemide (Lasix) 20 Mg Tablet 20 MG PO DAILY for 10 Days, #10 TAB Continued Medications: Acetaminophen (Tylenol) 325 Mg Tablet 650 MG PO Q6H PRN PAIN, TAB albuterol inhaler (Pro-Air Inhaler) 8.5 Gm Inhaler 2 PUFFS INH Q4HPRN PRN for wheezing for 30 Days, #18 GM Atorvastatin Calcium (Lipitor) 80 Mg Tablet 1 TAB PO DAILY for 30 Days, #30 TAB 0 Refills Cholecalciferol (Vitamin D) 2,000 Unit Tablet 1 TAB PO DAILY for 30 Days, #30 TAB 0 Refills Clopidogrel Bisulfate (Clopidogrel) 75 Mg Tablet 1 TAB PO DAILY for 30 Days, #30 TAB 0 Refills Do not stop medication unless instructed by prescriber. Lactobacillus Rhamnosus (Culturelle) 10 Billion Cell Capsule 1 CAP PO BID for 30 Days, #60 CAP 0 Refills Levothyroxine Sodium (Synthroid) 112 Mcg Tablet 1 TAB PO DAILY for 30 Days, #30 TAB 0 Refills Losartan Potassium* (Cozaar*) 25 Mg Tablet 2 TAB PO DAILY for 30 Days, #30 TAB Metoprolol Tartrate (Lopressor tablet) 25 Mg Tablet 2 TAB PO Q12H for 30 Days, #60 TAB Hold for SBP below 100mm Hg Hold for Heart Rate below 60. Venkatesh/Polymyx B Sulf/Dexameth (Maxitrol Eye Drops) 3.5 Mg/Ml-10,000 Unit/Ml-0.1 % Drops.susp 1 DROP EACHEYE Q6H for 7 Days, #5 ML Pantoprazole Sodium (PROTONIX tablet) 40 Mg Tablet.dr 1 TAB PO DAILY for 30 Days, #30 TAB 0 Refills Tiotropium [place] (Spiriva) 18 Mcg Cap.w.dev 1 CAP INH DAILY for 30 Days, #30 CAP 0 Refills Tramadol HCl (Tramadol HCl) 50 Mg Tablet 1 TAB PO TID PRN PRN for pain for 30 Days, #90 TAB Discontinued Medications: Cefdinir (Cefdinir) 300 Mg Capsule 1 CAP PO Q12H for 2 Days, #4 CAP 0 Refills Montelukast Sodium (Singulair) 10 Mg Tablet 1 TAB PO HS for 30 Days, #30 TAB 0 Refills Discharge Summary: HPI 79-year-old male was at the [place] clinic today and was advised that he had abnormal lab values including an elevated troponin. PCP in [place] advised the patient come to the ER for evaluation of an acute cardiac event. Patient received 324 of aspirin at the [place]. Patient is very poor historian and has memory loss issues but he mentioned to me that they told him that he has water in his lungs and that is the reason he needs to go to the hospital. They started him on water pill today in outpatient setting. he also gets short of breaths and gets tired. Patient did mentioned to me that he was getting left side chest pain early around 1:00 p.m. today but when I evaluated him eight already subsided. Patient denied any other symptoms. He had two beer in last three months denied use of any tobacco or any recreational drug. No other symptoms no other alleviating or exacerbating factors. hospital course ; Patient is 79-year-old male admitted for acute exacerbation of systolic congestive heart failure, elevated troponins and chest pain, bilateral pleural effusion, chronic kidney disease stage 3, hypertension, hypothyroidism, AFib rate controlled on the day of admission Cardiology Dr. Rocha consulted and Cardiology team evaluated the patient. And patient is started on IV Lasix with renal function monitoring and cardiology team started on Jardiance, Entresto, aspirin, metoprolol. On 10/18/2024 : ProBNP was 3455 and chest x-ray shows left-sided pleural effusion we continued Lasix 20 mg b.i.d. IV, spironolactone 12.5 mg p.o. daily, Entresto one tablet p.o. b.i.d., empagliflozin 10 mg daily. thoracentesis October 18, 2024 with 1600 mL removed. On 10/19/2024: Ordered lipid panel, procalcitonin . ProBNP 1404, continued spironolactone, continued Entresto, continue empagliflozin. Repeated chest x-ray, repeated procalcitonin, blood cultures and pleural fluid analysis cultures ordered. For AFib be continued metoprolol, Xarelto 20 mg daily, will discontinue Lasix, heparin at 3:00 p.m. on 10/20/2024: Discontinue heparin drip, ceftriaxone 1 g IV daily, azithromycin 500 mg p.o. day ordered and continued home med spironolactone, Entresto, empagliflozin, metoprolol on 10/21/2024 : Continued on the same medications and ordered blood culture sensitivity. 10/22/2024 : Patient started on heparin 5000 units subQ q.12h, stopped ceftriaxone and started vancomycin. Today blood culture sensitivity showed Staph epidermidis possible contaminant and Patient remained hemodynamically stable. PT evaluated the patient and patient discharged home. Discharge course : Call 911 or come to the emergency department if severe chest pain, palpitations, shortness of breath, fever sensation is evidenced. Follow-up with primary care physician within two weeks. 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 Dinner your home medication. We are starting Lasix. Day one tablet of 20 mg daily for 10 days. Take Jardiance one tablet of 10 mg daily Continued Medications: Acetaminophen (Tylenol) 325 Mg Tablet albuterol inhaler (Pro-Air Inhaler) 8.5 Gm Inhaler Atorvastatin Calcium (Lipitor) 80 Mg Tablet Cholecalciferol (Vitamin D) 2,000 Unit Tablet Clopidogrel Bisulfate (Clopidogrel) 75 Mg Tablet Do not stop medication unless instructed by prescriber. Lactobacillus Rhamnosus (Culturelle) 10 Billion Cell Capsule Levothyroxine Sodium (Synthroid) 112 Mcg Tablet Losartan Potassium* (Cozaar*) 25 Mg Tablet Metoprolol Tartrate (Lopressor tablet) 25 Mg Tablet Hold for SBP below 100mm Hg Hold for Heart Rate below 60. Venkatesh/Polymyx B Sulf/Dexameth (Maxitrol Eye Drops) 3.5 Mg/Ml-10,000 Unit/Ml-0.1 % Drops.susp Pantoprazole Sodium (PROTONIX tablet) 40 Mg Tablet. Tiotropium [place] (Spiriva) 18 Mcg Cap.w.dev Tramadol HCl 50 Mg Tablet Discontinued Medications: Cefdinir 300 Mg Capsule Montelukast Sodium (Singulair) 10 Mg Tablet physical exam : Physical exam: General- await, alert, and oriented x4, resting in bed, in no acute distress HEENT-atraumatic normocephalic, neck supple without elevated JVD, no thyromegaly or carotid bruit. No lymphadenopathy bilaterally. Eyes-no icterus or pallor seen in eyes Chest- Equal air entry on both lungs, mild crackles in the left base. Heart-S1-S2 normal, regular heart rate no murmur Abdomen -bowel sounds positive on auscultation, soft nondistended nontender no guarding, no rigidity Skin - no active skin rash, skin is warm and dry Neurology-no focal weakness in upper and lower limb muscles, power of the muscles 5/5 bilateral upper and lower extremity, normal reflexes bilateral, cranial nerves intact Extremity- no pedal edema, able to move all 4 extremities Psychiatry - patient is not confused or agitated cooperated during physical examinatio Vital Signs Date Time Temp Pulse Resp B/P (MAP) Pulse Ox O2 Delivery O2 Flow Rate FiO2 10/23/24 09:15 84 10/23/24 08:00 Room Air 10/23/24 07:00 96.8 16 104/61 (75) 97 10/22/24 20:00 0.0 21 Laboratory Tests Test 10/22/24 05:34 10/22/24 11:24 10/23/24 11:08 White Blood Count 6.7 X10'3 Red Blood Count 4.67 X10'6 Hemoglobin 14.4 g/dl Hematocrit 43.1 % Mean Corpuscular Volume 92.4 FL Mean Corpuscular Hemoglobin 30.8 PG Mean Corpuscular Hemoglobin Concent 33.4 g/dL Red Cell Distribution Width 14.6 % Platelet Count 201 X10'3 Mean Platelet Volume 9.9 FL Neutrophils (%) (Auto) 45.0 % Lymphocytes (%) (Auto) 35.9 % Monocytes (%) (Auto) 10.8 % Eosinophils (%) (Auto) 7.4 % Basophils (%) (Auto) 0.9 % Neutrophils # (Auto) 3.0 X10'3 Lymphocytes # (Auto) 2.4 X10'3 Monocytes # (Auto) 0.7 X10'3 Eosinophils # (Auto) 0.5 X10'3 Basophils # (Auto) 0.1 X10'3 CBC Comment Sodium Level 142 MMOL/L Potassium Level 3.6 MMOL/L Chloride Level 105 MMOL/L Carbon Dioxide Level 27.1 MMOL/L Anion Gap 10 Blood Urea Nitrogen 35 MG/DL Creatinine 1.51 MG/DL Estimated GFR/1.73 m2 45 ML/MIN BUN/Creatinine Ratio 23.2 Glucose Level 101 MG/DL Calcium Level 9.2 MG/DL Total Bilirubin 0.5 MG/DL Aspartate Amino Transf (AST/SGOT) 21 U/L Alanine Aminotransferase (ALT/SGPT) 18 U/L Alkaline Phosphatase 89 IU/L Total Protein 6.9 G/DL Albumin 3.3 G/DL Globulin 3.6 G/DL Albumin/Globulin Ratio 0.9 Chemistry Comments Lactic Acid Level 1.9 MMOL/L Pro-B-Type Natriuretic Peptide 664 PG/ML Imaging : Chest xray :IMPRESSION: Left pleural effusion Echocardiogram: RVSp of 37 mmHg., LVEF is 40% Chest CT: Moderate to large left pleural effusion with associated compressive atelectasis Chest x-ray : Trace left pleural effusion. No appreciable pneumothorax. *Problems/Diagnosis: (1) Acute exacerbation of CHF (congestive heart failure) Status: Acute (2) Atrial fibrillation Status: Chronic (3) Acute kidney injury Status: Acute Total Time Spent on D/C: > 30 Minutes Date of Service: Oct 23, 2024 Billing Provider: SEN LLAMAS MD Common Visit Codes: [id number] DISCH DAY >30min BERTHA HERNANDEZ, RES Oct 23, 2024 15:50 SEN LLAMAS MD Oct 23, 2024 21:39
[2024-10-25] MEDS ORDERED: VANCOMYCIN LEVEL IV ONE (11:30)
== END 2024-10-23 14:00 | disposition home health service (06) | DRG 193 ==
LOC: ER 13:37 → ED HOLD 15:34 → PCU 3S 17:40
PROVIDERS: ADMIT Internal Medicine; ATTEND Internal Medicine
PROC: 0W9B3ZZ Drainage of Left Pleural Cavity, Percutaneous Approach (ICD-10-PCS; principal; 2024-10-18)
DX: J15.9 Unspecified bacterial pneumonia (principal); I21.A1 Myocardial infarction type 2; I50.23 Acute on chronic systolic (congestive) heart failure; N17.0 Acute kidney failure with tubular necrosis; I13.0 Hypertensive heart and chronic kidney disease with heart failure and stage 1 through stage 4 chronic kidney disease, or unspecified chronic kidney disease; J91.8 Pleural effusion in other conditions classified elsewhere; I48.19 Other persistent atrial fibrillation; J44.0 Chronic obstructive pulmonary disease with (acute) lower respiratory infection; Z66 Do not resuscitate; I25.10 Atherosclerotic heart disease of native coronary artery without angina pectoris; E03.9 Hypothyroidism, unspecified; N18.31 Chronic kidney disease, stage 3a; Z79.899 Other long term (current) drug therapy; Z86.73 Personal history of transient ischemic attack (TIA), and cerebral infarction without residual deficits; Z87.891 Personal history of nicotine dependence; Z95.1 Presence of aortocoronary bypass graft
CPT/HCPCS: 32555; 36415; 71045; 71046; 71250; 80053; 80061; 81003; 82945; 83605; 83615; 83880; 83930; 83986; 84145; 84157; 84443; 84484; 85025; 85610; 85651; 85730; 86140; 87040; 87070; 87077; 87081; 87186; 89051; 93005; 93306; 93308; 96365; 97161; 97530; 99285; C1729; G0378; J0696; J1644; J1938; J3375; J7040